=== PATIENT | male | born 1950 | race Caucasian/White ===

== ENCOUNTER → 2016-12-17 | Outpatient (CLI) | payer OTHER ==
--- NOTE | 2016-12-18 14:43 | PE ---
Nuclear medicine PET/CT HISTORY: Pulmonary nodule, R 91.8 Patient received 8.3 mCi F-18 FDG intravenously. Delayed scanning performed from the skull base to th e mid thighs. Localization and attenuation correction CT scan was performed No comparisons Findings: Neck and chest: The nodule within the lingula measures approximately 3.6 cm and is cavitary, there is associated hypermetabolic uptake SUV 7.3. Right upper lobe nodule measures approximately 2.2 cm and shows SUV 10.4 and is partially cavitary. Left upper lobe nodule shows SUV 3.7 and measures approxima tely 9 mm, additional nodule in the subpleural location in the left upper lobe is measuring only 4 mm and shows no definite corresponding hypermetabolic uptake. Small nodes are present within the medias tinum, hypermetabolic uptake in the retrocaval pretracheal node shows SUV 2.8, right hilar node SUV 3 , left hilar nodes SUV 3.2, additional right hilar nodes SUV 3. Abdomen pelvis: Unremarkable. No hypermetabolic uptake. IMPRESSION: Bilateral lung nodules show hypermetabolic uptake. Mediastinal nodes do not appear enlarg ed which show some corresponding hypermetabolic uptake as described.
== END | disposition home or self-care (01) ==
LOC: RADPETMAIN 13:23
PROVIDERS: ATTEND Internal Medicine Critical Care Medicine
DX: R91.8 Other nonspecific abnormal finding of lung field (principal)
CPT/HCPCS: 78815; A9552

== ENCOUNTER 2016-12-29 09:06 | Day surgery (SDC) | payer OTHER ==
[2016-12-26 14:28] VITALS: BMI 25.4
[~2016-12-29 09:06] MED LIST: ALBUTEROL NEB (CONC) 2.5 MG/0.5 ML INHALATION ONE; ATROPINE SULFATE 0.4 MG/ML 1 ML VIAL IM ONE; IV FLUID CONTINUATION 1,000 ML IV ONE; LACTATED RINGERS 1,000 ML IV ONE; LACTATED RINGERS 1,000 ML IV SCH; LIDOCAINE 2% (PF) 20 MG/ML 10ML INHALATION ONE
[2016-12-29] MEDS ORDERED: LIDOCAINE 1% 20 ML VIAL (10MG/ML) FOR IV START INTRADERMA ONE (09:51)
[2016-12-29] MEDS ORDERED: LIDOCAINE 1% INJ 10MG/ML (20 ML MDV) ONE (11:32)
[2016-12-29] MEDS ORDERED: SUCCINYLCHOLINE CHLORIDE 100 MG/5 ML SYR IV ONE (11:32)
[2016-12-29] MEDS ORDERED: NEOSTIGMINE 1 MG/ML 10 ML VIAL ONE (11:32)
[2016-12-29] MEDS ORDERED: MIDAZOLAM 2 MG/2 ML VIAL ONE (11:32)
[2016-12-29] MEDS ORDERED: fentaNYL (PF) 50 MCG/ML 2 ML AMP ONE (11:32)
[2016-12-29] MEDS ORDERED: GLYCOPYRROLATE 0.2 MG/ML 2 ML VIAL ONE (11:32)
[2016-12-29] MEDS ORDERED: ROCURONIUM BROMIDE 10 MG/ML 10 ML VIAL IV ONE (11:32)
[2016-12-29] MEDS ORDERED: PROPOFOL 10 MG/ML 20 ML VIAL IV ONE (11:32)
--- NOTE | 2016-12-29 11:36 | CT ---
EXAMINATION TYPE: CT Chest felton Olivares Protocol DATE OF EXAM: 12/29/2016 10:37 AM COMPARISON: PET CT fusion through 1816 HISTORY: Bronchial navigation CT DLP: [address] of the chest was performed with lung and mediastinal window settings submitted for [facility] navigation protocol.. The lack of contrast limits evaluation of the vascular, mediastinal and parenchymal structures including the upper abdomen. LUNGS: Spiculated mass right upper lobe measures 2 cm with internal mild cavitation. Small nodule rig ht lower lobe measures 6 mm. Within the left lung there is a dominant cavitary mass within the lingul a which measures 3.2 x 3.1 cm. 2 adjacent nodules are seen within the left upper lobe measuring 5 and 7 mm respectively. Additional 5 mm lingular nodule. Additional left lower lobe nodule medially measu res 3 mm. MEDIASTINUM/SABRINA: Thoracic aorta is of normal caliber with limited evaluation given lack of contrast . The heart is not enlarged. No evidence for mediastinal mass. Several subcentimeter mediastinal ly mph nodes appreciated. UPPER ABDOMEN: No significant abnormality is seen. OTHER: Upper back sebaceous cyst. IMPRESSION: 1. Pulmonary masses and nodules as discussed.
[2016-12-29] MEDS ORDERED: LACTATED RINGERS 1,000 ML IV ONE (12:20)
[2016-12-29 12:34] VITALS: TEMP 97.4
[2016-12-29 12:46] VITALS: RESP 16
--- NOTE | 2016-12-29 13:37 | XR ---
EXAMINATION TYPE: XR chest 1V portable DATE OF EXAM: 12/29/2016 1:32 PM COMPARISON: 03/26/2016 HISTORY: Post biopsy TECHNIQUE: Single frontal view of the chest is obtained. FINDINGS: Area of consolidation in the lingular segment left upper lobe is noted. No pneumothorax id entified. No pleural effusion. Diffuse osteopenia noted. Postsurgical change involving the mediastinu m. Correlate for underlying COPD. IMPRESSION: 1. No pneumothorax post procedure. Pulmonary mass again noted.
[2016-12-29 13:57] VITALS: BP 150/69; PULSE 72
[2016-12-29 16:54] LABS: RBC, Body Fluid 13600 /uL
--- NOTE | 2016-12-30 06:18 | PCN ---
DATE OF PROCEDURE: PROCEDURE PERFORMED: Electromagnetic navigational bronchoscopy. The procedure was done by Dr. Arango and Dr. Willis doing the procedure together. PREOPERATIVE DIAGNOSIS: Lingular mass POSTOPERATIVE DIAGNOSIS: Lingular mass Procedure was done in the operating section of [facility]. There was informed consent. There was universal timeout. The procedure was done with general anesthesia. After the patient was adequately sedated and intubated by anesthesia, stable on the ventilator, the bronchoscope was inserted through the bronchoscope adapter of the endotracheal tube. We localized the lesion in the lingula. We used the electromagnetic navigational bronchoscopy to localize the lesion precisely. We did transbronchial biopsies, needle biopsies, brushes and washes of the lesion. The patient tolerated the procedure well. There was minimal bleeding. The patient was stable throughout the entire procedure. The biopsies will be sent to pathology for review. The patient will be recovered. He will be discharged home eventually. There was no immediate complication. A chest x-ray was done to rule out pneumothorax.
== END 2016-12-29 14:06 | disposition home or self-care (01) ==
LOC: ORWHC2ENDO 09:06
PROVIDERS: ATTEND Internal Medicine Critical Care Medicine
DX: C34.12 Malignant neoplasm of upper lobe, left bronchus or lung (principal); I48.91 Unspecified atrial fibrillation; I10 Essential (primary) hypertension; E78.5 Hyperlipidemia, unspecified; J44.9 Chronic obstructive pulmonary disease, unspecified; J45.909 Unspecified asthma, uncomplicated; I35.0 Nonrheumatic aortic (valve) stenosis; I73.9 Peripheral vascular disease, unspecified; Z87.891 Personal history of nicotine dependence; Z88.2 Allergy status to sulfonamides; Z88.8 Allergy status to other drugs, medicaments and biological substances; Z79.82 Long term (current) use of aspirin; Z79.899 Other long term (current) drug therapy; Z79.891 Long term (current) use of opiate analgesic; Z79.51 Long term (current) use of inhaled steroids
CPT/HCPCS: 87798 ×4; 87496; 87498; 87529 ×2; 88104; 88108; 88305; 88173; 89050; 88342; 87252; 87502 ×2; 88341; 87070; 87205; 87116; 87102; 87206; 71010; 71250; 31628; 31623; 31627; J2250; J0461; J2710; J2001; J3010; J0330; J2704; 31624; 31625; 31629

== ENCOUNTER 2017-03-07 15:34 | Emergency (ER) | payer OTHER ==
[2017-03-07] MEDS ORDERED: SODIUM CHLORIDE 0.9% 1,000 ML IV STA ×2 (16:09)
--- NOTE | 2017-03-07 16:11 | ED ---
General Adult HPI - General Chief complaint: Shortness of Breath Stated complaint: SOB/Sweating/ due to medication Time Seen by Provider: 03/07/17 16:06 Source: patient, RN notes reviewed, old records reviewed Mode of arrival: wheelchair Limitations: no limitations - History of Present Illness Initial comments: This is a 66-year-old male here for evaluation. Patient coming in for evaluation of shortness of breath exertional shortness of breath diaphoresis no specific fever. Patient does have history of recent CVA diagnosis going through chemo. Patient's thinks it is pernicious is reaction to his medication. Patient denies nausea vomiting, no chest pain. No abdominal pain. - Related Data Home Medications Medication Instructions Recorded Confirmed Hydrochlorothiazide [Hydrodiuril] 50 mg PO DAILY 03/26/16 03/07/17 Losartan Potassium [Cozaar] 100 mg PO QAM 03/26/16 03/07/17 Metoprolol Tartrate 25 mg PO BID 03/26/16 03/07/17 Potassium Chloride ER [K-Dur 10] 10 meq PO DAILY 03/26/16 03/07/17 Tiotropium 18 Mcg/Puff [Spiriva] 1 cap INHALATION RT-DAILY PRN 03/26/16 03/07/17 Budesonide/Formoterol Fumarate 2 puff INHALATION RT-BID PRN 07/21/16 03/07/17 [Symbicort 160-4.5 Mcg Inhaler] Morphine Sulfate ER [Ms Contin 30 mg PO Q12HR 03/07/17 03/07/17 30Mg] Morphine Sulfate Ir [Msir] 15 mg PO TID PRN 03/07/17 03/07/17 Pravastatin Sodium [Pravachol] 20 mg PO DAILY 03/07/17 03/07/17 Allergies Allergy/AdvReac Type Severity Reaction Status Date / Time lisinopril Allergy Cough Verified 03/07/17 16:16 sulfamethoxazole Allergy Swelling Verified 03/07/17 16:16 [From Bactrim] terazosin Allergy Unknown Verified 03/07/17 16:16 trimethoprim [From Bactrim] Allergy Swelling Verified 03/07/17 16:16 Review of Systems ROS Statement: Those systems with pertinent positive or pertinent negative responses have been documented in the HPI. ROS Other: All systems not noted in ROS Statement are negative. Past Medical History Past Medical History: Atrial Fibrillation, Cancer, COPD, Hyperlipidemia, Hypertension, Vascular Disorder Additional Past Medical History / Comment(s): "growth in my lung", PVD, Neuropathy, wound lt great toe and left heel-healed, uses w/c,cane walk short distance with cane History of Any Multi-Drug Resistant Organisms: MRSA Date of last positivie culture/infection: 2012 MDRO Source:: rt ankle wound Past Surgical History: Orthopedic Surgery Additional Past Surgical History / Comment(s): aortic valve replacement, rt ankle surgery with screws and pins, cardioversion,eye surgery at age 15, bronchoscopy at [facility] in [place] Past Anesthesia/Blood Transfusion Reactions: No Reported Reaction Additional Past Anesthesia/Blood Transfusion Reaction / Comment(s): pt states "awakened prior to bronchoscopy being withdrawn." Past Psychological History: No Psychological Hx Reported Smoking Status: Former smoker Past Alcohol Use History: None Reported Additional Past Alcohol Use History / Comment(s): smoked 53 years 3-5 ppd quit 01-04-16 Past Drug Use History: None Reported - Past Family History Mother Family Medical History: Cancer Additional Family Medical History / Comment(s): lung cancer Father Family Medical History: No Reported History General Exam Limitations: no limitations General appearance: alert, in no apparent distress, anxious Head exam: Present: atraumatic, normocephalic, normal inspection Eye exam: Present: normal appearance, PERRL, EOMI. Absent: scleral icterus, conjunctival injection, periorbital swelling ENT exam: Present: normal exam, mucous membranes moist Neck exam: Present: normal inspection. Absent: tenderness, meningismus, lymphadenopathy Respiratory exam: Present: normal lung sounds bilaterally. Absent: respiratory distress, wheezes, rales, rhonchi, stridor Cardiovascular Exam: Present: regular rate, normal rhythm, normal heart sounds. Absent: systolic murmur, diastolic murmur, rubs, gallop, clicks GI/Abdominal exam: Present: soft, normal bowel sounds. Absent: distended, tenderness, guarding, rebound, rigid Extremities exam: Present: normal inspection, full ROM, normal capillary refill. Absent: tenderness, pedal edema, joint swelling, calf tenderness Back exam: Present: normal inspection Neurological exam: Present: alert, oriented X3, CN II-XII intact Psychiatric exam: Present: normal affect, normal mood Skin exam: Present: warm, dry, intact, normal color. Absent: rash Course Vital Signs 03/07/17 03/07/17 03/07/17 15:51 17:00 17:57 Temperature 99.0 F 97.6 F Pulse Rate 91 74 77 Respiratory 20 18 18 Rate Blood Pressure 125/63 136/74 150/70 O2 Sat by Pulse 99 97 98 Oximetry 03/07/17 03/07/17 03/07/17 19:00 20:05 20:31 Temperature Pulse Rate 78 77 Respiratory 16 18 22 Rate Blood Pressure 142/63 180/77 O2 Sat by Pulse 97 99 Oximetry EKG Findings - EKG Comments: EKG Findings:: EKG shows normal sinus rhythm rate of 81, CT 166, QRS 110, QTc 466 Medical Decision Making - Medical Decision Making 66 female to the ER for evaluation of shortness of breath, positive exertional dyspnea. At this point patient's symptoms appear to be improving, patient feels better as far as breathing issues. Patient denies complaints over discharged home - Lab Data Result diagrams: 03/07/17 16:10 03/07/17 16:10 Lab Results 03/07/17 03/07/17 03/07/17 Range/Units 16:10 16:10 16:10 WBC 10.2 (3.8-10.6) k/uL RBC 4.13 L (4.30-5.90) m/uL Hgb 11.9 L (13.0-17.5) gm/dL Hct 34.7 L (39.0-53.0) % MCV 84.1 (80.0-100.0) fL MCH 28.9 (25.0-35.0) pg MCHC 34.3 (31.0-37.0) g/dL RDW 13.6 (11.5-15.5) % Plt Count 362 (150-450) k/uL Neutrophils % 63 % Lymphocytes % 25 % Monocytes % 5 % Eosinophils % 3 % Basophils % 1 % Neutrophils # 6.5 (1.3-7.7) k/uL Lymphocytes # 2.5 (1.0-4.8) k/uL Monocytes # 0.5 (0-1.0) k/uL Eosinophils # 0.3 (0-0.7) k/uL Basophils # 0.1 (0-0.2) k/uL PT (9.0-12.0) sec INR (<1.1) APTT (22.0-30.0) sec Sodium 138 (137-145) mmol/L Potassium 3.9 (3.5-5.1) mmol/L Chloride 100 (98-107) mmol/L Carbon Dioxide 24 (22-30) mmol/L Anion Gap 14 mmol/L BUN 15 (9-20) mg/dL Creatinine 0.70 (0.66-1.25) mg/dL Est GFR (MDRD) Af Amer >60 (>60 ml/min/1.73 sqM) Est GFR (MDRD) Non-Af >60 (>60 ml/min/1.73 sqM) Glucose 139 H (74-99) mg/dL Calcium 10.2 (8.4-10.2) mg/dL Magnesium 1.7 (1.6-2.3) mg/dL Total Bilirubin 0.3 (0.2-1.3) mg/dL AST 20 (17-59) U/L ALT 24 (21-72) U/L Alkaline Phosphatase 70 (38-126) U/L Total Creatine Kinase 58 (55-170) U/L CK-MB (CK-2) 1.6 (0.0-2.4) ng/mL CK-MB (CK-2) Rel Index 2.8 Troponin I <0.012 (0.000-0.034) ng/mL NT-Pro-B Natriuret Pep pg/mL Total Protein 7.9 (6.3-8.2) g/dL Albumin 4.0 (3.5-5.0) g/dL 03/07/17 03/07/17 Range/Units 16:10 16:10 WBC (3.8-10.6) k/uL RBC (4.30-5.90) m/uL Hgb (13.0-17.5) gm/dL Hct (39.0-53.0) % MCV (80.0-100.0) fL MCH (25.0-35.0) pg MCHC (31.0-37.0) g/dL RDW (11.5-15.5) % Plt Count (150-450) k/uL Neutrophils % % Lymphocytes % % Monocytes % % Eosinophils % % Basophils % % Neutrophils # (1.3-7.7) k/uL Lymphocytes # (1.0-4.8) k/uL Monocytes # (0-1.0) k/uL Eosinophils # (0-0.7) k/uL Basophils # (0-0.2) k/uL PT 10.4 (9.0-12.0) sec INR 1.0 (<1.1) APTT 23.5 (22.0-30.0) sec Sodium (137-145) mmol/L Potassium (3.5-5.1) mmol/L Chloride (98-107) mmol/L Carbon Dioxide (22-30) mmol/L Anion Gap mmol/L BUN (9-20) mg/dL Creatinine (0.66-1.25) mg/dL Est GFR (MDRD) Af Amer (>60 ml/min/1.73 sqM) Est GFR (MDRD) Non-Af (>60 ml/min/1.73 sqM) Glucose (74-99) mg/dL Calcium (8.4-10.2) mg/dL Magnesium (1.6-2.3) mg/dL Total Bilirubin (0.2-1.3) mg/dL AST (17-59) U/L ALT (21-72) U/L Alkaline Phosphatase (38-126) U/L Total Creatine Kinase (55-170) U/L CK-MB (CK-2) (0.0-2.4) ng/mL CK-MB (CK-2) Rel Index Troponin I (0.000-0.034) ng/mL NT-Pro-B Natriuret Pep 250 pg/mL Total Protein (6.3-8.2) g/dL Albumin (3.5-5.0) g/dL - Radiology Data Radiology results: report reviewed (CTA chest and x-ray are negative for acute disease, no PE), image reviewed Disposition Clinical Impression: Exertional dyspnea Disposition: HOME SELF-CARE Condition: Good Instructions: Bronchospasm (ED) Referrals: Marcus Gottlieb DO [Primary Care Provider] - 1-2 days
[2017-03-07 16:26] LABS: Basophils # (A) 0.1 k/uL (0-0.2); Basophils % (A) 1 %; CH 29.6; CHCM 35.3; Eosinophils # (A) 0.3 k/uL (0-0.7); Eosinophils % (A) 3 %; HCT 34.7 % (39.0-53.0); HDW 3.05; HGB 11.9 gm/dL (13.0-17.5); Luc # (Auto) 0.31; Luc % (Auto) 3; Lymphocytes # (A) 2.5 k/uL (1.0-4.8); Lymphocytes % (A) 25 %; MCH 28.9 pg (25.0-35.0); MCHC 34.3 g/dL (31.0-37.0); MCV 84.1 fL (80.0-100.0); Mean Platelet Volume 7.1; Monocytes # (A) 0.5 k/uL (0-1.0); Monocytes % (A) 5 %; Neutrophils # (A) 6.5 k/uL (1.3-7.7); Neutrophils % (A) 63 %; RBC 4.13 m/uL (4.30-5.90); RDW 13.6 % (11.5-15.5); WBC 10.2 k/uL (3.8-10.6); WBC (Perox) 10.77
--- NOTE | 2017-03-07 16:33 | XR ---
EXAMINATION TYPE: XR chest 2V DATE OF EXAM: 03/07/2017 COMPARISON: Chest x-ray and CT chest December 29, 2016. HISTORY: Difficulty in breathing. Currently being treated for lung cancer. TECHNIQUE: Frontal and lateral views of the chest are obtained. FINDINGS: Underlying emphysematous change is present. Opacity right upper lung corresponds to cavitar y lesion. There is patchy left basilar scarring and/or atelectasis. Nodularity left lower lobe is les s well-seen on x-ray versus CT. No new suspicious focal airspace opacity, pleural effusion, or pneumo thorax is present. There is persistent mild cardiomegaly with atherosclerotic thoracic aorta. Sternal wires are redemonstrated. Stent graft at aortic root is again seen. Osseous structures are intact. IMPRESSION: Cardiomegaly and chronic emphysematous change without new acute pulmonary process.
[2017-03-07 16:38] LABS: Partial Thromboplastin Time 23.5 sec (22.0-30.0); Prothrombin Time 10.4 sec (9.0-12.0)
[2017-03-07 16:40] LABS: ALT 24 U/L (21-72); AST 20 U/L (17-59); Alkaline Phosphatase 70 U/L (38-126); Anion Gap 14 mmol/L; Blood Urea Nitrogen 15 mg/dL (9-20); Calcium 10.2 mg/dL (8.4-10.2); Carbon Dioxide 24 mmol/L (22-30); Chloride 100 mmol/L (98-107); Glucose 139 mg/dL (74-99); Magnesium 1.7 mg/dL (1.6-2.3); Non-African American GFR(MDRD) >60 (>60 ml/min/1.73 sqM); Potassium 3.9 mmol/L (3.5-5.1); Sodium 138 mmol/L (137-145); Total Bilirubin 0.3 mg/dL (0.2-1.3); Total Protein 7.9 g/dL (6.3-8.2)
[2017-03-07] MEDS ORDERED: MORPHINE SULFATE 4 MG/ML SYRINGE IVP STA (16:42)
[2017-03-07 16:50] LABS: Creatine Kinase 58 U/L (55-170)
[2017-03-07 17:01] LABS: Creatine Kinase MB 1.6 ng/mL (0.0-2.4); Troponin I <0.012 ng/mL (0.000-0.034)
--- NOTE | 2017-03-07 17:19 | CT ---
EXAMINATION TYPE: CT brain wo con DATE OF EXAM: 03/07/2017 COMPARISON: NONE HISTORY: Dizziness. Hx of lung CA. CT DLP: 1126 mGycm Automated exposure control for dose reduction was used. FINDINGS: There is cerebral mild cortical atrophy. There is no mass effect nor midline shift. There is no sign of intracranial hemorrhage. The calvarium is intact. IMPRESSION: Cerebral atrophy. No acute intracranial abnormality. Mild chronic small vessel ischemia.
[2017-03-07 17:58] VITALS: TEMP 97.6
[2017-03-07] MEDS ORDERED: methylPREDNISolone SOD SUCCI 125 MG/2 ML VIAL IV STA (19:24)
[2017-03-07] MEDS ORDERED: RX INFO: IV CONTRAST WAS GIVEN 1 EACH MISC MISCELLANE PRN (19:24)
--- NOTE | 2017-03-07 20:07 | CT ---
EXAMINATION TYPE: CT angio chest DATE OF EXAM: 03/07/2017 7:49 PM COMPARISON: NONE HISTORY: History of lung cancer. Shortness of breath. CT DLP: 375.10 mGycm Automated exposure control for dose reduction was used. CONTRAST: CTA scan of the thorax is performed with IV Contrast, patient injected with 71 mL of Omnipaque 350, p ulmonary embolism protocol. There are 3-D post processed images.. FINDINGS: There is a 3 cm irregular infiltrate with some central cavitation in the right upper lobe. There is a 2 cm irregular nodular density in the lateral left upper lobe. There is a 3.5 cm irregular infiltrat e with some cavitation in the lingula left upper lobe. There is a 1 cm nodular infiltrate in the supe rior segment left lower lobe. There is a 1 cm nodular subpleural infiltrate in the lateral left lower lobe. There is a 1 cm irregular nodule in the subpleural lateral right lower lobe. There is no pleur al effusion. I see no filling defects in the pulmonary arteries. There are bilateral bronchial lymph nodes that measure up to 1 cm. Heart is enlarged. There is surgery noted at the aortic valve. There a re a few mediastinal lymph nodes that measure up to 1.6 cm. There is no obvious sign of aortic dissec tion. I see no bony destructive process. There is spurring in the thoracic spine. IMPRESSION: NO EVIDENCE OF PULMONARY EMBOLISM. AORTIC STENT NOTED. ATHEROSCLEROTIC VASCULAR DISEASE. MULTIPLE VARIABLE SIZED PULMONARY NODULAR INFILTRATES WITH SOME MEDIASTINAL AND BRONCHIAL ADENOPATHY. THIS IS CONSISTENT WITH PRIMARY OR SECONDARY MALIGNANCY.
[2017-03-07 20:32] VITALS: BP 180/77; PULSE 77; RESP 22
== END 2017-03-07 20:33 | disposition home or self-care (01) ==
LOC: EC 15:34
DX: R06.09 Other forms of dyspnea (principal); I10 Essential (primary) hypertension; E78.5 Hyperlipidemia, unspecified; Z87.891 Personal history of nicotine dependence; Z88.2 Allergy status to sulfonamides; Z88.8 Allergy status to other drugs, medicaments and biological substances; Z79.899 Other long term (current) drug therapy
CPT/HCPCS: 99285; 96374; 96375; 96361 ×4; 36415; 93005; 83880; 80053; 82550; 82553; 83735; 84484; 85025; 85610; 85730; 71020; 70450; 71275; J2270; J2930; Q9967

== ENCOUNTER → 2017-05-11 | Outpatient (CLI) | payer OTHER ==
[2017-05-11 08:55] LABS: Blood Urea Nitrogen 13 mg/dL (9-20); Non-African American GFR(MDRD) >60 (>60 ml/min/1.73 sqM)
--- NOTE | 2017-05-11 10:23 | CT ---
EXAMINATION TYPE: CT chest w con DATE OF EXAM: 05/11/2017 COMPARISON: CTA chest March 07, 2017. PET CT December 17, 2016. HISTORY: Patient has no complaints at time of service. Follow up study for known lung CA. CT DLP: 433.8 mGycm. Automated Exposure Control for Dose Reduction was Utilized. TECHNIQUE: CT scan of the thorax is performed following with IV Contrast, patient injected with 100 mL of Omnipaque 300. FINDINGS: LUNGS: There is persistent spiculated cavitary lesion right upper lobe measuring 1.6 x 1.4 cm on curr ent study image 12 felt slightly smaller in size versus prior exam. There is marked improvement in le ft upper lobe nodule with tiny residual nodular opacity remaining present on axial image 18 measuring 4 x 4 mm . There is persistent lesion in the left midlung anteriorly as well as lucent component inf eriorly, solid component superiorly measures 1.7 x 1.6 cm on current study image 31 and is less promi nent versus recent chest CT. A 5 mm scarlike opacity laterally right lower lobe on axial image 38 is not significantly changed and nonspecific. An ill-defined 4 mm spiculated groundglass opacity in the right upper lobe on axial image 18 is nonspecific not as well seen on prior and can be followed. MEDIASTINUM: There are no greater than 1 cm hilar or mediastinal lymph nodes. There are stable promin ent but subcentimeter thoracic lymph nodes redemonstrated. No cardiomegaly or pericardial effusion is seen. There is redemonstration of patent metallic stent graft in the ascending aorta. Coronary ar robson calcification is seen which is noted marker for coronary artery disease. There is moderate plaqu e throughout the aorta extending into branch vessels. Sternotomy wires are seen. OTHER: Moderate to severe multilevel spurring in the mid to lower thoracic spine is redemonstrated. IMPRESSION: Scattered hypermetabolic bilateral pulmonary nodules are improved. No new obvious mass or adenopathy is present.
== END | disposition home or self-care (01) ==
LOC: RADCTMAIN 08:24
PROVIDERS: ATTEND Internal Medicine Hematology & Oncology
DX: Z03.89 Encounter for observation for other suspected diseases and conditions ruled out (principal); C34.80 Malignant neoplasm of overlapping sites of unspecified bronchus and lung; R91.8 Other nonspecific abnormal finding of lung field
CPT/HCPCS: 82565; 84520; 71260; 36415; Q9967

== ENCOUNTER → 2017-05-15 | Outpatient (CLI) | payer OTHER ==
--- NOTE | 2017-05-15 17:09 | MR ---
EXAMINATION TYPE: MR brain wo/w con DATE OF EXAM: 05/15/2017 COMPARISON: CT brain 03/07/2017 HISTORY: Blurred/Double vision, stage 4 lung ca TECHNIQUE: Multiplanar, multisequence images of the brain and brainstem is performed without and with IV contras t, utilizing 18 mL intravenous MultiHance . FINDINGS: There is mild cerebral cortical atrophy. There is no mass effect nor midline shift. There i s no sign of intracranial hemorrhage. Sella turcica appears normal. Brainstem is intact. On the FLAIR images there is patchy abnormal increased signal at the davis-white matter junction of both cerebral hemispheres. The total number of foci is more than 20. These measure up to 1 cm. The contrast images show no pathologic enhancement. There is no evidence of an orbital mass. Pituitary stalk is in the mi dline. Optic chiasm appears normal. IMPRESSION: Cerebral atrophy. Numerous white matter foci probably related to chronic small vessel isc hemia or demyelinating disease. This is similar to the CT scan of 03/07/2017. I see no pathologic enhan cement to suggest metastatic disease.
== END | disposition home or self-care (01) ==
LOC: RADMRIMAIN 16:10
PROVIDERS: ATTEND Internal Medicine Hematology & Oncology
DX: G31.89 Other specified degenerative diseases of nervous system (principal); C34.80 Malignant neoplasm of overlapping sites of unspecified bronchus and lung; H53.10 Unspecified subjective visual disturbances; R90.82 White matter disease, unspecified
CPT/HCPCS: 70553; A9577; 80053

== ENCOUNTER 2017-06-17 07:19 | Inpatient (IN) | payer OTHER ==
[2017-06-17] MEDS ORDERED: IPRATROPIUM-ALBUTEROL 3 ML NEB INHALATION STA ×2 (07:31→09:41)
[2017-06-17] MEDS ORDERED: methylPREDNISolone SOD SUCCI 125 MG/2 ML VIAL IV STA (07:31)
[2017-06-17] MEDS ORDERED: SODIUM CHLORIDE 0.9% 500 ML IV STA (07:31)
[2017-06-17] MEDS ORDERED: SODIUM CHLORIDE 0.9% 1,000 ML IV STA (07:31)
--- NOTE | 2017-06-17 07:41 | ED ---
SOB HPI - General Chief Complaint: Shortness of Breath Stated Complaint: slava stage 4 lung Ca Time Seen by Provider: 06/17/17 07:20 Source: patient, family, RN notes reviewed Mode of arrival: EMS Limitations: no limitations - History of Present Illness Initial Comments: This is a 66-year-old male with a history of stage IV lung cancer and a history of smoking in the past who states he's had shortness of breath for about the past 2 days. He's had slight cough he denies any fevers or chills he has had sweats. He has exertional dyspnea. No overt chest pain but also he has chronic leg pain which is worse today. He states he was on a steroid and ran out and was placed on a different medication but it has not helped. He has a palpitations phlegm production he does have a slight cough. No peripheral edema. He does state he has a pin sticking out of his right ankle which is to be removed at some point. MD Complaint: shortness of breath - Related Data Home Medications Medication Instructions Recorded Confirmed Hydrochlorothiazide [Hydrodiuril] 50 mg PO DAILY 03/26/16 03/07/17 Losartan Potassium [Cozaar] 100 mg PO QAM 03/26/16 03/07/17 Metoprolol Tartrate 25 mg PO BID 03/26/16 03/07/17 Potassium Chloride ER [K-Dur 10] 10 meq PO DAILY 03/26/16 03/07/17 Tiotropium 18 Mcg/Puff [Spiriva] 1 cap INHALATION RT-DAILY PRN 03/26/16 03/07/17 Budesonide/Formoterol Fumarate 2 puff INHALATION RT-BID PRN 07/21/16 03/07/17 [Symbicort 160-4.5 Mcg Inhaler] Morphine Sulfate ER [Ms Contin 30 mg PO Q12HR 03/07/17 03/07/17 30Mg] Morphine Sulfate Ir [Msir] 15 mg PO TID PRN 03/07/17 03/07/17 Pravastatin Sodium [Pravachol] 20 mg PO DAILY 03/07/17 03/07/17 Allergies Allergy/AdvReac Type Severity Reaction Status Date / Time lisinopril Allergy Cough Verified 06/17/17 07:29 sulfamethoxazole Allergy Swelling Verified 06/17/17 07:29 [From Bactrim] terazosin Allergy Unknown Verified 06/17/17 07:29 trimethoprim [From Bactrim] Allergy Swelling Verified 06/17/17 07:29 Review of Systems ROS Statement: Those systems with pertinent positive or pertinent negative responses have been documented in the HPI. ROS Other: All systems not noted in ROS Statement are negative. Past Medical History Past Medical History: Atrial Fibrillation, Cancer, COPD, Hyperlipidemia, Hypertension, Vascular Disorder Additional Past Medical History / Comment(s): "growth in my lung", PVD, Neuropathy, wound lt great toe and left heel-healed, uses w/c,cane walk short distance with cane History of Any Multi-Drug Resistant Organisms: MRSA Date of last positivie culture/infection: 2012 MDRO Source:: rt ankle wound Past Surgical History: Orthopedic Surgery Additional Past Surgical History / Comment(s): aortic valve replacement, rt ankle surgery with screws and pins, cardioversion,eye surgery at age 15, bronchoscopy at [facility] in [place] Past Anesthesia/Blood Transfusion Reactions: No Reported Reaction Additional Past Anesthesia/Blood Transfusion Reaction / Comment(s): pt states "awakened prior to bronchoscopy being withdrawn." Past Psychological History: No Psychological Hx Reported Smoking Status: Former smoker Past Alcohol Use History: None Reported Past Drug Use History: None Reported - Past Family History Mother Family Medical History: Cancer Additional Family Medical History / Comment(s): lung cancer Father Family Medical History: No Reported History General Exam - General Exam Comments Initial Comments: This is a well-developed well-nourished awake alert oriented times female Limitations: no limitations General appearance: alert, anxious, in distress Head exam: Present: atraumatic, normocephalic, normal inspection Eye exam: Present: normal appearance, PERRL, EOMI. Absent: scleral icterus, conjunctival injection, periorbital swelling ENT exam: Present: mucous membranes dry Neck exam: Present: normal inspection. Absent: tenderness, meningismus, lymphadenopathy Respiratory exam: Present: accessory muscle use, decreased breath sounds. Absent: respiratory distress, wheezes, rales, rhonchi, stridor Cardiovascular Exam: Present: tachycardia, irregular rhythm, normal heart sounds. Absent: systolic murmur, diastolic murmur, rubs, gallop, clicks GI/Abdominal exam: Present: soft, normal bowel sounds. Absent: distended, tenderness, guarding, rebound, rigid Extremities exam: Present: full ROM, normal capillary refill, other (There is erosion area over the medial anterior proximal right malleolus with a tendinitis exposers no localized drainage or erythema seen at this time.). Absent: tenderness, pedal edema, joint swelling, calf tenderness Back exam: Present: normal inspection Neurological exam: Present: alert, oriented X3, CN II-XII intact Psychiatric exam: Present: normal affect, normal mood Skin exam: Present: warm, dry, intact, normal color. Absent: rash Course Vital Signs 06/17/17 06/17/17 06/17/17 07:27 07:50 08:13 Temperature 98.9 F Pulse Rate 145 H 136 H Respiratory 27 H Rate Blood Pressure 129/61 O2 Sat by Pulse 98 Oximetry 06/17/17 06/17/17 08:20 08:37 Temperature 97.5 F L Pulse Rate 122 H 144 H Respiratory 24 Rate Blood Pressure 142/77 O2 Sat by Pulse 98 Oximetry - Reevaluation(s) Reevaluation #1: 06/17/17 08:30 Patient states his breathing is slightly better however he has increased leg pain 7/10 in severity this may be an basis of hyperventilation from the dyspnea. He'll get a 0.5 mg dose of Dilaudid. Medical Decision Making - Medical Decision Making Reevaluation patient reveals that he has some improvement he still has A. fib RVR no chest pain reported. I did discuss findings the patient has as well as with Dr. Pierce and with Dr. Lambert from cardiology. The patient will be admitted with both cardiology and pulmonary consultation. - Lab Data Result diagrams: 06/17/17 07:35 06/17/17 07:35 Lab Results 06/17/17 06/17/17 06/17/17 Range/Units 07:35 07:35 07:35 WBC 18.8 H (3.8-10.6) k/uL RBC 4.42 (4.30-5.90) m/uL Hgb 13.2 (13.0-17.5) gm/dL Hct 39.8 (39.0-53.0) % MCV 90.1 (80.0-100.0) fL MCH 29.9 (25.0-35.0) pg MCHC 33.1 (31.0-37.0) g/dL RDW 18.0 H (11.5-15.5) % Plt Count 263 (150-450) k/uL Neutrophils % 83 % Lymphocytes % 9 % Monocytes % 5 % Eosinophils % 1 % Basophils % 1 % Neutrophils # 15.6 H (1.3-7.7) k/uL Lymphocytes # 1.7 (1.0-4.8) k/uL Monocytes # 1.0 (0-1.0) k/uL Eosinophils # 0.1 (0-0.7) k/uL Basophils # 0.1 (0-0.2) k/uL Anisocytosis Slight PT (9.0-12.0) sec INR (<1.2) APTT (22.0-30.0) sec Sodium 137 (137-145) mmol/L Potassium 3.7 (3.5-5.1) mmol/L Chloride 102 (98-107) mmol/L Carbon Dioxide 22 (22-30) mmol/L Anion Gap 13 mmol/L BUN 22 H (9-20) mg/dL Creatinine 0.81 (0.66-1.25) mg/dL Est GFR (MDRD) Af Amer >60 (>60 ml/min/1.73 sqM) Est GFR (MDRD) Non-Af >60 (>60 ml/min/1.73 sqM) Glucose 192 H (74-99) mg/dL Calcium 8.9 (8.4-10.2) mg/dL Magnesium 1.8 (1.6-2.3) mg/dL Total Bilirubin 0.4 (0.2-1.3) mg/dL AST 25 (17-59) U/L ALT 48 (21-72) U/L Alkaline Phosphatase 64 (38-126) U/L Total Creatine Kinase 51 L (55-170) U/L CK-MB (CK-2) 4.9 H* (0.0-2.4) ng/mL CK-MB (CK-2) Rel Index 9.6 Troponin I 0.276 H* (0.000-0.034) ng/mL NT-Pro-B Natriuret Pep pg/mL Total Protein 6.0 L (6.3-8.2) g/dL Albumin 3.5 (3.5-5.0) g/dL 06/17/17 06/17/17 Range/Units 07:35 07:35 WBC (3.8-10.6) k/uL RBC (4.30-5.90) m/uL Hgb (13.0-17.5) gm/dL Hct (39.0-53.0) % MCV (80.0-100.0) fL MCH (25.0-35.0) pg MCHC (31.0-37.0) g/dL RDW (11.5-15.5) % Plt Count (150-450) k/uL Neutrophils % % Lymphocytes % % Monocytes % % Eosinophils % % Basophils % % Neutrophils # (1.3-7.7) k/uL Lymphocytes # (1.0-4.8) k/uL Monocytes # (0-1.0) k/uL Eosinophils # (0-0.7) k/uL Basophils # (0-0.2) k/uL Anisocytosis PT 9.4 (9.0-12.0) sec INR 0.9 (<1.2) APTT 20.2 L (22.0-30.0) sec Sodium (137-145) mmol/L Potassium (3.5-5.1) mmol/L Chloride (98-107) mmol/L Carbon Dioxide (22-30) mmol/L Anion Gap mmol/L BUN (9-20) mg/dL Creatinine (0.66-1.25) mg/dL Est GFR (MDRD) Af Amer (>60 ml/min/1.73 sqM) Est GFR (MDRD) Non-Af (>60 ml/min/1.73 sqM) Glucose (74-99) mg/dL Calcium (8.4-10.2) mg/dL Magnesium (1.6-2.3) mg/dL Total Bilirubin (0.2-1.3) mg/dL AST (17-59) U/L ALT (21-72) U/L Alkaline Phosphatase (38-126) U/L Total Creatine Kinase (55-170) U/L CK-MB (CK-2) (0.0-2.4) ng/mL CK-MB (CK-2) Rel Index Troponin I (0.000-0.034) ng/mL NT-Pro-B Natriuret Pep 2020 pg/mL Total Protein (6.3-8.2) g/dL Albumin (3.5-5.0) g/dL - EKG Data -: EKG Interpreted by Me (Interpretation with a rate of 138 QRS 82 daily since QTC at 288/436) - Radiology Data Radiology results: report reviewed, image reviewed (I did review the imaging and reports no acute findings.) Critical Care Time Critical Care Time: Yes Critical Care Time: 37 minutes of critical care time which includes initial monitoring with history physical labs x-rays reevaluation patient several occasions for responsive therapy. Discussion with the admitting service as well as cardiology. Documentation the above admitting orders. Disposition Clinical Impression: Rapid atrial fibrillation, Non-ST elevation myocardial infarction (NSTEMI), Acute exacerbation of chronic obstructive airways disease, Adult respiratory distress syndrome Disposition: ADMITTED IP TO THIS HOSP Condition: Serious Referrals: Marcus Gottlieb DO [Primary Care Provider] - 1-2 days Decision Time: 09:00
[2017-06-17] MEDS ORDERED: DILTIAZEM 125 MG in SODIUM CHLORIDE 0.9% 100 ML IV ONE (07:42)
[2017-06-17 07:53] LABS: Anisocytosis Slight; Basophils # (A) 0.1 k/uL (0-0.2); Basophils % (A) 1 %; CH 30.8; CHCM 34.3; Eosinophils # (A) 0.1 k/uL (0-0.7); Eosinophils % (A) 1 %; HCT 39.8 % (39.0-53.0); HDW 2.76; HGB 13.2 gm/dL (13.0-17.5); Luc # (Auto) 0.36; Luc % (Auto) 2; Lymphocytes # (A) 1.7 k/uL (1.0-4.8); Lymphocytes % (A) 9 %; MCH 29.9 pg (25.0-35.0); MCHC 33.1 g/dL (31.0-37.0); MCV 90.1 fL (80.0-100.0); Mean Platelet Volume 7.6; Monocytes % (A) 5 %; Neutrophils # (A) 15.6 k/uL (1.3-7.7); Neutrophils % (A) 83 %; RBC 4.42 m/uL (4.30-5.90); WBC 18.8 k/uL (3.8-10.6); WBC (Perox) 17.84
--- NOTE | 2017-06-17 07:59 | XR ---
EXAMINATION TYPE: XR chest 2V DATE OF EXAM: 06/17/2017 HISTORY: difficulty breathing. REFERENCE: Previous study dated 03/07/2017. FINDINGS: There has been a midline sternotomy. There is an aortic stent graft in place. Lungs are overinflated but clear. Pleural spaces are clear. The heart is enlarged. IMPRESSION: 1. COPD. 2. CARDIOMEGALY. 3. POSTSURGICAL CHANGE.
[2017-06-17 08:02] LABS: ALT 48 U/L (21-72); AST 25 U/L (17-59); Alkaline Phosphatase 64 U/L (38-126); Anion Gap 13 mmol/L; Blood Urea Nitrogen 22 mg/dL (9-20); Calcium 8.9 mg/dL (8.4-10.2); Carbon Dioxide 22 mmol/L (22-30); Chloride 102 mmol/L (98-107); Glucose 192 mg/dL (74-99); Magnesium 1.8 mg/dL (1.6-2.3); Non-African American GFR(MDRD) >60 (>60 ml/min/1.73 sqM); Potassium 3.7 mmol/L (3.5-5.1); Sodium 137 mmol/L (137-145); Total Bilirubin 0.4 mg/dL (0.2-1.3)
[2017-06-17 08:08] LABS: INR 0.9 (<1.2); Prothrombin Time 9.4 sec (9.0-12.0)
[2017-06-17 08:16] LABS: Partial Thromboplastin Time 20.2 sec (22.0-30.0)
[2017-06-17] MEDS ORDERED: HYDROmorphone 1 MG/ML 1 ML SYRINGE IVP STA (08:31)
[2017-06-17 08:32] LABS: Creatine Kinase MB 4.9 ng/mL (0.0-2.4); Troponin I 0.276 ng/mL (0.000-0.034)
[2017-06-17] MEDS ORDERED: HEPARIN SODIUM,PORCINE 5,000 UNIT/ML 1 ML VIAL IV ONE (08:36)
[2017-06-17] MEDS: HEPARIN SODIUM,PORCINE/D5W PMX 25,000 UNIT in DEXTROSE/WATER 1 500ML.BAG IV SCH (08:45)
[2017-06-17] MEDS ORDERED: MAGNESIUM SULFATE-D5W PMX 1 GM in DEXTROSE/WATER 1 100ML.BAG IVPB ONE (09:26)
[2017-06-17] MEDS ORDERED: NITROGLYCERIN SL TABS 0.4 MG TAB SUBLINGUAL PRN (09:36)
[2017-06-17] MEDS ORDERED: SODIUM CHLORIDE 0.9% 1,000 ML IV SCH (09:45)
[2017-06-17] MEDS ORDERED: IPRATROPIUM-ALBUTEROL 3 ML NEB INHALATION SCH (12:00)
[2017-06-17] MEDS: NITROGLYCERIN OINT 1 INCH/GM PACKET TOPICAL SCH ×3 (12:29→23:56)
--- NOTE | 2017-06-17 12:29 | P.CRDCN ---
History of Present Illness Consult date: 06/17/17 Chief complaint: Shortness of breath History of present illness: This is a pleasant 66-year-old male patient with a past medical history significant for aortic valve disease and status post aortic valve replacement with unknown details at this point as well as stage IV lung cancer presented to the hospital complaining of shortness of breath. The patient has been experiencing the shortness of breath over the last few days. He denies having any chest pain or chest discomfort. No orthopnea or PND. He was found to be in A. fib with RVR which seems to be newly diagnosis to him. The patient was started on Cardizem drip as well as on heparin drip. He was on metoprolol at home which was presumed. I will keep the patient on the current medical treatment and try to wean him from the Cardizem drip. I will obtain an echocardiogram was Doppler. Continue following up with him. Past Medical History Past Medical History: Atrial Fibrillation, Cancer, COPD, Hyperlipidemia, Hypertension, Vascular Disorder Additional Past Medical History / Comment(s): "growth in my lung", PVD, Neuropathy, wound lt great toe and left heel-healed, uses w/c,cane walk short distance with cane History of Any Multi-Drug Resistant Organisms: MRSA Date of last positivie culture/infection: 2012 MDRO Source:: rt ankle wound Past Surgical History: Orthopedic Surgery Additional Past Surgical History / Comment(s): aortic valve replacement, rt ankle surgery with screws and pins, cardioversion,eye surgery at age 15, bronchoscopy at [facility] in [place] Past Anesthesia/Blood Transfusion Reactions: No Reported Reaction Additional Past Anesthesia/Blood Transfusion Reaction / Comment(s): pt states "awakened prior to bronchoscopy being withdrawn." Smoking Status: Former smoker - Past Family History Mother Family Medical History: Cancer Additional Family Medical History / Comment(s): lung cancer Father Family Medical History: No Reported History Medications and Allergies Home Medications Medication Instructions Recorded Confirmed Type Hydrochlorothiazide [Hydrodiuril] 50 mg PO DAILY 03/26/16 06/17/17 History Losartan Potassium [Cozaar] 100 mg PO QAM 03/26/16 06/17/17 History Metoprolol Tartrate 25 mg PO BID 03/26/16 06/17/17 History Potassium Chloride ER [K-Dur 10] 10 meq PO DAILY 03/26/16 06/17/17 History Tiotropium 18 Mcg/Puff [Spiriva] 1 cap INHALATION RT-DAILY PRN 03/26/16 History Budesonide/Formoterol Fumarate 2 puff INHALATION RT-BID PRN 07/21/16 06/17/17 History [Symbicort 160-4.5 Mcg Inhaler] Morphine Sulfate ER [Ms Contin 30 mg PO TID 03/07/17 06/17/17 History 30Mg] Morphine Sulfate Ir [Msir] 15 mg PO TID PRN 03/07/17 06/17/17 History Pravastatin Sodium [Pravachol] 20 mg PO DAILY 03/07/17 06/17/17 History Albuterol Sulfate [Proair Hfa] 2 puff INHALATION RT-Q6H PRN 06/17/17 06/17/17 History Gabapentin [Neurontin] 300 mg PO TID 06/17/17 06/17/17 History Magnesium 200 mg PO DAILY 06/17/17 06/17/17 History Multivitamins, Thera [Multivitamin 1 tab PO DAILY 06/17/17 06/17/17 History (formulary)] [place]-3 Fatty Acids/Fish Oil [Fish 1 cap PO DAILY 06/17/17 06/17/17 History Oil 1,000 mg Softgel] Pyridoxine [Vitamin B-6] 50 mg PO DAILY 06/17/17 06/17/17 History Allergies Allergy/AdvReac Type Severity Reaction Status Date / Time lisinopril Allergy Cough Verified 06/17/17 10:38 sulfamethoxazole Allergy Swelling Verified 06/17/17 10:38 [From Bactrim] terazosin Allergy Unknown Verified 06/17/17 10:38 trimethoprim [From Bactrim] Allergy Swelling Verified 06/17/17 10:38 Physical Exam Vitals: Vital Signs Temp Pulse Pulse Resp BP BP Pulse Ox 06/17/17 11:00 97.1 F L 112 H 20 150/63 98 06/17/17 10:23 97.5 F L 118 H 22 169/72 96 06/17/17 08:37 97.5 F L 144 H 24 142/77 98 06/17/17 08:20 122 H 06/17/17 08:13 136 H 06/17/17 07:50 129/61 06/17/17 07:27 98.9 F 145 H 27 H 98 Intake and Output 06/16/17 06/17/17 06/17/17 22:59 06:59 14:59 Intake Total 503.25 Balance 503.25 Intake: Amount of Fluid Infused ( 500 ml) Intake, IV Titration 3.25 Amount Diltiazem 125 mg In 3.25 Sodium Chloride 0.9% 100 ml @ 5 MG/HR 5 mls/hr IV .Q24H ONE Rx#:[id number] Other: Weight 88.451 kg Patient Weight 06/18/17 06:59 Weight 88.451 kg - Constitutional General appearance: no acute distress - Respiratory Respiratory: bilateral: CTA - Cardiovascular Rhythm: irregularly irregular Heart sounds: normal: S1, S2 Results 06/17/17 07:35 06/17/17 07:35 Cardiac Enzymes 06/17/17 06/17/17 Range/Units 07:35 07:35 AST 25 (17-59) U/L CK-MB (CK-2) 4.9 H* (0.0-2.4) ng/mL Troponin I 0.276 H* (0.000-0.034) ng/mL Coagulation 06/17/17 Range/Units 07:35 PT 9.4 (9.0-12.0) sec APTT 20.2 L (22.0-30.0) sec CBC 06/17/17 Range/Units 07:35 WBC 18.8 H (3.8-10.6) k/uL RBC 4.42 (4.30-5.90) m/uL Hgb 13.2 (13.0-17.5) gm/dL Hct 39.8 (39.0-53.0) % Plt Count 263 (150-450) k/uL Comprehensive Metabolic Panel 06/17/17 Range/Units 07:35 Sodium 137 (137-145) mmol/L Potassium 3.7 (3.5-5.1) mmol/L Chloride 102 (98-107) mmol/L Carbon Dioxide 22 (22-30) mmol/L BUN 22 H (9-20) mg/dL Creatinine 0.81 (0.66-1.25) mg/dL Glucose 192 H (74-99) mg/dL Calcium 8.9 (8.4-10.2) mg/dL AST 25 (17-59) U/L ALT 48 (21-72) U/L Alkaline Phosphatase 64 (38-126) U/L Total Protein 6.0 L (6.3-8.2) g/dL Albumin 3.5 (3.5-5.0) g/dL Current Medications Generic Name Dose Route Start Last Admin Trade Name Freq PRN Reason Stop Dose Admin Albuterol/Ipratropium 3 ml 06/17/17 12:00 Duoneb 0.5 Mg-3 Mg/3 Ml Soln INHALATION Q4HR [facility] Aspirin 325 mg 06/18/17 09:00 Aspirin PO DAILY [facility] Hydrochlorothiazide 50 mg 06/18/17 09:00 Hydrodiuril PO DAILY [facility] Sodium Chloride 1,000 mls @ 100 mls/hr 06/17/17 07:31 06/17/17 07:46 Saline 0.9% IV 06/17/17 17:30 100 mls/hr .Q10H [facility] Administration Diltiazem HCl 125 mg/ Sodium 125 mls @ 5 mls/hr 06/17/17 07:42 06/17/17 08:31 Chloride IV 06/18/17 07:41 10 mg/hr .Q24H [facility] 10 mls/hr Protocol Titration 5 MG/HR Heparin Sodium/Dextrose 25,000 500 mls @ 20 mls/hr 06/17/17 08:45 06/17/17 08 :45 unit/ IV Solution IV 11.31 units/kg/hr .Q24H [facility] 20 mls/hr Protocol Administration 11.31 UNITS/KG/HR Sodium Chloride 1,000 mls @ 100 mls/hr 06/17/17 09:45 Saline 0.9% IV .Q10H [facility] Losartan Potassium 100 mg 06/18/17 09:00 Cozaar PO QAM [facility] Methylprednisolone Sodium Succinate 60 mg 06/17/17 12:00 Solu-Medrol IV Q6HR [facility] Metoprolol Tartrate 25 mg 06/17/17 21:00 Lopressor PO BID [facility] Morphine Sulfate 30 mg 06/17/17 21:00 Ms Contin PO Q12HR [facility] Morphine Sulfate 15 mg 06/17/17 09:40 Msir PO TID PRN Pain Nitroglycerin 1 inch 06/17/17 12:00 Nitro-Bid Oint TOPICAL Q6HR [facility] Nitroglycerin 0.4 mg 06/17/17 09:36 Nitrostat SUBLINGUAL Q5M PRN Chest Pain Potassium Chloride 10 meq 06/18/17 09:00 K-Dur 10 PO DAILY [facility] Pravastatin Sodium 20 mg 06/18/17 09:00 Pravachol PO DAILY [facility] Intake and Output 06/16/17 06/17/17 06/17/17 22:59 06:59 14:59 Intake Total 503.25 Balance 503.25 Intake: Amount of Fluid Infused ( 500 ml) Intake, IV Titration 3.25 Amount Diltiazem 125 mg In 3.25 Sodium Chloride 0.9% 100 ml @ 5 MG/HR 5 mls/hr IV .Q24H [facility] Rx#:[id number] Other: Weight 88.451 kg Patient Weight 06/18/17 06:59 Weight 88.451 kg 06/17/17 07:35 06/17/17 07:35 Assessment and Plan Plan: This is a pleasant 66-year-old gentleman with stage IV lung cancer and history of aortic valve replacement presented to the hospital with shortness of breath and was found to be in A. fib with RVR. We will continue the heparin IV as well as Cardizem IV and continue the metoprolol by mouth. We'll obtain an echocardiogram was Doppler. Continue following up with him. Try to wean her from the Cardizem drip.
[2017-06-17] MEDS: methylPREDNISolone SOD SUCCI 125 MG/2 ML VIAL IV SCH ×3 (12:30→23:56)
[2017-06-17] MEDS: MORPHINE SULFATE IR 15 MG TABLET PO PRN ×2 (12:42→22:13)
[2017-06-17] MEDS ORDERED: HEPARIN SODIUM,PORCINE 5,000 UNIT/ML 1 ML VIAL IV PRN (12:43)
--- NOTE | 2017-06-17 13:05 | P.CNPUL ---
History of Present Illness Consult date: 06/17/17 Reason for consult: dyspnea, chest pain, COPD, hypoxemia Chief complaint: Shortness of breath History of present illness: Consult dated 06/17/2017 This is a 66-year-old gentleman with a history of stage IV lung cancer. He is undergoing immunotherapy for his lung cancer. He states he's had 5 or 6 treatments. Over last couple days she comes in complaining of increasing shortness of breath slight cough chills no fever. No chest pain or chest discomfort. Was also found to have a rapid heart rate. Told that his atrial fibrillation was acting up. The patient also has a previous history of aortic valve replacement. He tells me I see him in the office but I did not see her for about 8 months. Used to go to the [place] and see Dr. Gottlieb. I apparently diagnosed with COPD but he can't tell me the severity of his disease. I do not have my office chart in front of me.(In addition to lung cancer he has a history of hypertension hyperlipidemia COPD atrial fibrillation neuropathy peripheral vascular occlusive disease and previous MRSA infection of the lower extremity. I did mention aortic valve replacement bronchoscopy cardioversion and some right ankle screws and pins from a previous traumatic injury. Review of Systems A 12 point review of system is positive for shortness breath cough minimal phlegm production rapid heartbeat palpitations sweats chills no fever. Past Medical History Past Medical History: Atrial Fibrillation, Cancer, COPD, Hyperlipidemia, Hypertension, Vascular Disorder Additional Past Medical History / Comment(s): "growth in my lung", PVD, Neuropathy, wound lt great toe and left heel-healed, uses w/c,cane walk short distance with cane History of Any Multi-Drug Resistant Organisms: MRSA Date of last positivie culture/infection: 2012 MDRO Source:: rt ankle wound Past Surgical History: Orthopedic Surgery Additional Past Surgical History / Comment(s): aortic valve replacement, rt ankle surgery with screws and pins, cardioversion,eye surgery at age 15, bronchoscopy at [facility] in [place] Past Anesthesia/Blood Transfusion Reactions: No Reported Reaction Additional Past Anesthesia/Blood Transfusion Reaction / Comment(s): pt states "awakened prior to bronchoscopy being withdrawn." Smoking Status: Former smoker - Past Family History Mother Family Medical History: Cancer Additional Family Medical History / Comment(s): lung cancer Father Family Medical History: No Reported History Medications and Allergies Home Medications Medication Instructions Recorded Confirmed Type Hydrochlorothiazide [Hydrodiuril] 50 mg PO DAILY 03/26/16 06/17/17 History Losartan Potassium [Cozaar] 100 mg PO QAM 03/26/16 06/17/17 History Metoprolol Tartrate 25 mg PO BID 03/26/16 06/17/17 History Potassium Chloride ER [K-Dur 10] 10 meq PO DAILY 03/26/16 06/17/17 History Tiotropium 18 Mcg/Puff [Spiriva] 1 cap INHALATION RT-DAILY PRN 03/26/16 History Budesonide/Formoterol Fumarate 2 puff INHALATION RT-BID PRN 07/21/16 06/17/17 History [Symbicort 160-4.5 Mcg Inhaler] Morphine Sulfate ER [Ms Contin 30 mg PO TID 03/07/17 06/17/17 History 30Mg] Morphine Sulfate Ir [Msir] 15 mg PO TID PRN 03/07/17 06/17/17 History Pravastatin Sodium [Pravachol] 20 mg PO DAILY 03/07/17 06/17/17 History Albuterol Sulfate [Proair Hfa] 2 puff INHALATION RT-Q6H PRN 06/17/17 06/17/17 History Gabapentin [Neurontin] 300 mg PO TID 06/17/17 06/17/17 History Magnesium 200 mg PO DAILY 06/17/17 06/17/17 History Multivitamins, Thera [Multivitamin 1 tab PO DAILY 06/17/17 06/17/17 History (formulary)] [place]-3 Fatty Acids/Fish Oil [Fish 1 cap PO DAILY 06/17/17 06/17/17 History Oil 1,000 mg Softgel] Pyridoxine [Vitamin B-6] 50 mg PO DAILY 06/17/17 06/17/17 History Allergies Allergy/AdvReac Type Severity Reaction Status Date / Time lisinopril Allergy Cough Verified 06/17/17 10:38 sulfamethoxazole Allergy Swelling Verified 06/17/17 10:38 [From Bactrim] terazosin Allergy Unknown Verified 06/17/17 10:38 trimethoprim [From Bactrim] Allergy Swelling Verified 06/17/17 10:38 Physical Exam Osteopathic Statement: *. No significant issues noted on an osteopathic structural exam other than those noted in the History and Physical/Consult. Vitals: Vital Signs Temp Pulse Pulse Resp BP BP Pulse Ox 06/17/17 11:00 97.1 F L 112 H 20 150/63 98 06/17/17 10:23 97.5 F L 118 H 22 169/72 96 06/17/17 08:37 97.5 F L 144 H 24 142/77 98 06/17/17 08:20 122 H 06/17/17 08:13 136 H 06/17/17 07:50 129/61 06/17/17 07:27 98.9 F 145 H 27 H 98 Intake and Output 06/16/17 06/17/17 06/17/17 22:59 06:59 14:59 Intake Total 503.25 Balance 503.25 Intake: Amount of Fluid Infused ( 500 ml) Intake, IV Titration 3.25 Amount Diltiazem 125 mg In 3.25 Sodium Chloride 0.9% 100 ml @ 5 MG/HR 5 mls/hr IV .Q24H ONE Rx#:[id number] Other: Weight 88.451 kg Patient Weight 06/18/17 06:59 Weight 88.451 kg No acute distress, laying flat in bed. Not wearing any supplemental oxygen. Mild conversational dyspnea. HEENT examination is grossly unremarkable. Mixed membranes are moist. No oral lesions. Neck supple. Full range of motion. No adenopathy or thyromegaly Cardiovascular examination reveals distant heart sounds. He appears to be in sinus rhythm. S1-S2 normal. No distinct murmur noted. Lungs reveal a few scattered coarse rhonchi and wheezes. Breath sounds are diminished. Slight prolongation on forced maneuver. Breath sounds are diminished bilaterally. Abdomen soft bowel sounds are heard. No masses or tenderness. Extremities are intact. No cyanosis clubbing or edema. Skin without rash. Neurologic examination is brief but nonfocal. Results - Laboratory Findings CBC and BMP: 06/17/17 07:35 06/17/17 07:35 PT/INR, D-dimer PT 9.4 sec (9.0-12.0) 06/17/17 07:35 INR 0.9 (<1.2) 06/17/17 07:35 Abnormal lab findings: Abnormal Labs 06/17/17 06/17/17 06/17/17 07:35 07:35 07:35 WBC 18.8 H RDW 18.0 H Neutrophils # 15.6 H APTT BUN 22 H Glucose 192 H Total Creatine Kinase 51 L CK-MB (CK-2) 4.9 H* Troponin I 0.276 H* Total Protein 6.0 L 06/17/17 07:35 WBC RDW Neutrophils # APTT 20.2 L BUN Glucose Total Creatine Kinase CK-MB (CK-2) Troponin I Total Protein - Diagnostic Findings Chest x-ray: image reviewed (Labs x-rays a medications are all reviewed.) Assessment and Plan (1) Metastatic lung cancer (metastasis from lung to other site) Status: Acute (2) COPD (chronic obstructive pulmonary disease) Status: Acute (3) Hyperlipidemia Status: Acute (4) Hypertension Status: Acute (5) H/O aortic valve replacement Status: Acute (6) Acute exacerbation of chronic obstructive airways disease Status: Acute (7) Non-ST elevation myocardial infarction (NSTEMI) Status: Acute (8) Rapid atrial fibrillation Status: Acute Plan: Plan dated 06/17/2017 Meds labs and x-rays are reviewed. We'll make sure he is on good bronchodilators and steroids. Oral antibiotics would not be unreasonable. We' ll review all his medications. Additional recommendations suggestions are forthcoming. Prognosis is guarded. Time with Patient: Greater than 30
[2017-06-17] MEDS ORDERED: ALBUTEROL NEBULIZED 2.5 MG/3 ML INHALATION PRN (13:06)
[2017-06-17 14:47] LABS: Creatine Kinase MB 5.7 ng/mL (0.0-2.4); Troponin I 0.247 ng/mL (0.000-0.034)
[2017-06-17] MEDS: PRAVASTATIN SODIUM 20 MG TAB PO SCH (15:56)
[2017-06-17] MEDS: METOPROLOL TARTRATE 25 MG TAB PO SCH ×2 (15:56→22:16)
[2017-06-17] MEDS: LOSARTAN 50 MG TAB PO SCH (15:56)
[2017-06-17] MEDS: MORPHINE SULFATE ER 30 MG TABLET PO SCH ×2 (15:56→23:56)
[2017-06-17] MEDS: HYDROCHLOROTHIAZIDE 50 MG TAB PO SCH (15:56)
[2017-06-17] MEDS: ALBUTEROL NEBULIZED 2.5 MG/3 ML INHALATION SCH ×2 (16:15→20:06)
[2017-06-17] MEDS: FORMOTEROL FUMARATE 20 MCG/2 ML NEBU INHALATION SCH (20:06)
[2017-06-17] MEDS: BUDESONIDE 1 MG/2 ML NEBU INHALATION SCH (20:06)
[2017-06-17 20:21] LABS: Creatine Kinase MB 5.5 ng/mL (0.0-2.4); Troponin I 0.162 ng/mL (0.000-0.034)
[2017-06-17] MEDS ORDERED: METOPROLOL TARTRATE 25 MG TAB PO SCH (21:00)
[2017-06-17] MEDS ORDERED: MORPHINE SULFATE ER 30 MG TABLET PO SCH (21:00)
[2017-06-17] MEDS: AMOXIC-POT CLAV 875-125MG 1 EACH TAB PO SCH (22:18)
--- NOTE | 2017-06-17 22:58 | P.HPIM ---
History of Present Illness H&P Date: 06/17/17 Chief Complaint: Shortness of breath This is a 66-year-old male with a history of stage IV lung cancer currently undergoing chemotherapy , history of aortic valve replacement, COPD and a history of smoking came to ER with complaints of shortness of breath for about the past 2 days. He's had slight cough he denies any fevers or chills he has had sweats. He has exertional dyspnea. No overt chest pain but also he has chronic leg pain which is worse today. He states he was on a steroid and ran out and was placed on a different medication but it has not helped. He has a palpitations phlegm production he does have a slight cough. No peripheral edema. Patient was found to have it fibrillation with rapid ventricular rate. She also had elevated troponin level. He does have leukocytosis at 18.8 Chest x-ray showed COPD and cardiomegaly Review of Systems CONSTITUTIONAL: No fever, no malaise, no fatigue. HEENT: No recent visual problems or hearing problems. Denied any sore throat. CARDIOVASCULAR: No chest pain, orthopnea, PND, no palpitations, no syncope. PULMONARY: , Shortness of breath with minimal cough. no hemoptysis. GASTROINTESTINAL: No diarrhea, no nausea, no vomiting, no abdominal pain. Normoactive bowel sounds. NEUROLOGICAL: No headaches, no weakness, no numbness. HEMATOLOGICAL: Denies any bleeding or petechiae. GENITOURINARY: Denies any burning micturition, frequency, or urgency. MUSCULOSKELETAL/RHEUMATOLOGICAL: Denies any joint pain, swelling, or any muscle pain. ENDOCRINE: Denies any polyuria or polydipsia. The rest of the 14-point review of systems is negative. Past Medical History Past Medical History: Atrial Fibrillation, Cancer, COPD, Hyperlipidemia, Hypertension, Vascular Disorder Additional Past Medical History / Comment(s): "growth in my lung", PVD, Neuropathy, wound lt great toe and left heel-healed, uses w/c,cane walk short distance with cane History of Any Multi-Drug Resistant Organisms: MRSA Date of last positivie culture/infection: 2012 MDRO Source:: rt ankle wound Past Surgical History: Orthopedic Surgery Additional Past Surgical History / Comment(s): aortic valve replacement, rt ankle surgery with screws and pins, cardioversion,eye surgery at age 15, bronchoscopy at [facility] in [place] Past Anesthesia/Blood Transfusion Reactions: No Reported Reaction Additional Past Anesthesia/Blood Transfusion Reaction / Comment(s): pt states "awakened prior to bronchoscopy being withdrawn." Smoking Status: Former smoker - Past Family History Mother Family Medical History: Cancer Additional Family Medical History / Comment(s): lung cancer Father Family Medical History: No Reported History Medications and Allergies Home Medications Medication Instructions Recorded Confirmed Type Hydrochlorothiazide [Hydrodiuril] 50 mg PO DAILY 03/26/16 06/17/17 History Losartan Potassium [Cozaar] 100 mg PO QAM 03/26/16 06/17/17 History Metoprolol Tartrate 25 mg PO BID 03/26/16 06/17/17 History Potassium Chloride ER [K-Dur 10] 10 meq PO DAILY 03/26/16 06/17/17 History Tiotropium 18 Mcg/Puff [Spiriva] 1 cap INHALATION RT-DAILY PRN 03/26/16 History Budesonide/Formoterol Fumarate 2 puff INHALATION RT-BID PRN 07/21/16 06/17/17 History [Symbicort 160-4.5 Mcg Inhaler] Morphine Sulfate ER [Ms Contin 30 mg PO TID 03/07/17 06/17/17 History 30Mg] Morphine Sulfate Ir [Msir] 15 mg PO TID PRN 03/07/17 06/17/17 History Pravastatin Sodium [Pravachol] 20 mg PO DAILY 03/07/17 06/17/17 History Albuterol Sulfate [Proair Hfa] 2 puff INHALATION RT-Q6H PRN 06/17/17 06/17/17 History Gabapentin [Neurontin] 300 mg PO TID 06/17/17 06/17/17 History Magnesium 200 mg PO DAILY 06/17/17 06/17/17 History Multivitamins, Thera [Multivitamin 1 tab PO DAILY 06/17/17 06/17/17 History (formulary)] [place]-3 Fatty Acids/Fish Oil [Fish 1 cap PO DAILY 06/17/17 06/17/17 History Oil 1,000 mg Softgel] Pyridoxine [Vitamin B-6] 50 mg PO DAILY 06/17/17 06/17/17 History Allergies Allergy/AdvReac Type Severity Reaction Status Date / Time lisinopril Allergy Cough Verified 06/17/17 10:38 sulfamethoxazole Allergy Swelling Verified 06/17/17 10:38 [From Bactrim] terazosin Allergy Unknown Verified 06/17/17 10:38 trimethoprim [From Bactrim] Allergy Swelling Verified 06/17/17 10:38 Physical Exam Vitals: Vital Signs Temp Pulse Pulse Resp BP BP Pulse Ox 06/17/17 11:00 97.1 F L 112 H 20 150/63 98 06/17/17 10:23 97.5 F L 118 H 22 169/72 96 06/17/17 08:37 97.5 F L 144 H 24 142/77 98 06/17/17 08:20 122 H 06/17/17 08:13 136 H 06/17/17 07:50 129/61 06/17/17 07:27 98.9 F 145 H 27 H 98 Intake and Output 06/16/17 06/17/17 06/17/17 22:59 06:59 14:59 Intake Total 503.25 Balance 503.25 Intake: Amount of Fluid Infused ( 500 ml) Intake, IV Titration 3.25 Amount Diltiazem 125 mg In 3.25 Sodium Chloride 0.9% 100 ml @ 5 MG/HR 5 mls/hr IV .Q24H ONE Rx#:[id number] Other: Weight 88.451 kg Patient Weight 06/18/17 06:59 Weight 88.451 kg PHYSICAL EXAMINATION: Patient is lying in the bed comfortably, no acute distress, awake alert and oriented.. HEENT: Normocephalic. Neck is supple. Pupils reactive. Nostrils clear. Oral cavity is moist. Ears reveal no drainage. Neck reveals no JVD, carotid bruits, or thyromegaly. CHEsT EXAMINATION: Trachea is central. Symmetrical expansion. Bilateral air entry decreased with expiratory wheezing. CARDIAC: Normal S1, S2 with no gallops. No murmurs ABDOMEN: Soft. Bowel sounds normal. No organomegaly. No abdominal bruits. Extremities reveal no edema. No clubbing or cyanosis Neurologically awake, alert, oriented x3 with well-coordinated movements. Skin: no rash or skin lesions Musculoskeletal: no joint swelling or deformity. Results CBC & Chem 7: 06/17/17 07:35 06/17/17 07:35 Labs: Abnormal Lab Results - Last 24 Hours (Table) 06/17/17 06/17/1717 Range/Units 07:35 07:35 07:35 WBC 18.8 H (3.8-10.6) k/uL RDW 18.0 H (11.5-15.5) % Neutrophils # 15.6 H (1.3-7.7) k/uL APTT (22.0-30.0) sec BUN 22 H (9-20) mg/dL Glucose 192 H (74-99) mg/dL Total Creatine Kinase 51 L (55-170) U/L CK-MB (CK-2) 4.9 H* (0.0-2.4) ng/mL Troponin I 0.276 H* (0.000-0.034) ng/mL Total Protein 6.0 L (6.3-8.2) g/dL 06/17/17 Range/Units 07:35 WBC (3.8-10.6) k/uL RDW (11.5-15.5) % Neutrophils # (1.3-7.7) k/uL APTT 20.2 L (22.0-30.0) sec BUN (9-20) mg/dL Glucose (74-99) mg/dL Total Creatine Kinase (55-170) U/L CK-MB (CK-2) (0.0-2.4) ng/mL Troponin I (0.000-0.034) ng/mL Total Protein (6.3-8.2) g/dL Thrombosis Risk Factor Assmnt - Choose All That Apply Each Risk Factor Represents 2 Points: Age 61-74 years Thrombosis Risk Factor Assessment Total Risk Factor Score: 2 Thrombosis Risk Factor Assessment Level: Low Risk Assessment and Plan Plan: #1 atrial fibrillation with rapid ventricular rate #2 acute COPD exacerbation #3 elevated troponin level. Possible NSTEMI #4 history of aortic valve replacement #5 hypertension #6 hyperlipidemia #7 metastatic lung cancer currently undergoing chemotherapy #8 peripheral vascular disease and neuropathy #9 leukocytosis Plan: Patient will be continued on IV steroids and breathing treatments. Patient was on Cardizem drip and metoprolol has been restarted. Patient is on heparin drip. Rate is controlled now. Continue with current management. Cardiology and pulmonary is on board. Prognosis is guarded. Further recommendations based on the clinical course. Time with Patient: Greater than 30
[2017-06-18 05:56] LABS: Anisocytosis Slight; Basophils % (A) 0 %; CHCM 33.3; Eosinophils % (A) 0 %; HCT 33.8 % (39.0-53.0); HDW 2.69; HGB 11.3 gm/dL (13.0-17.5); Luc # (Auto) 0.07; Luc % (Auto) 1; Lymphocytes # (A) 0.8 k/uL (1.0-4.8); Lymphocytes % (A) 5 %; MCH 30.1 pg (25.0-35.0); MCHC 33.3 g/dL (31.0-37.0); MCV 90.5 fL (80.0-100.0); Mean Platelet Volume 7.2; Monocytes # (A) 0.6 k/uL (0-1.0); Monocytes % (A) 4 %; Neutrophils % (A) 91 %; RBC 3.73 m/uL (4.30-5.90); RDW 17.1 % (11.5-15.5); WBC 15.5 k/uL (3.8-10.6); WBC (Perox) 15.46
[2017-06-18] MEDS: methylPREDNISolone SOD SUCCI 125 MG/2 ML VIAL IV SCH ×3 (06:43→16:39)
[2017-06-18] MEDS: NITROGLYCERIN OINT 1 INCH/GM PACKET TOPICAL SCH ×3 (06:44→16:39)
[2017-06-18 06:46] LABS: Anion Gap 7 mmol/L; Blood Urea Nitrogen 25 mg/dL (9-20); Calcium 8.6 mg/dL (8.4-10.2); Carbon Dioxide 24 mmol/L (22-30); Chloride 102 mmol/L (98-107); Cholesterol 212 mg/dL (<200); Glucose 161 mg/dL (74-99); HDL Cholesterol 81 mg/dL (40-60); Non-African American GFR(MDRD) >60 (>60 ml/min/1.73 sqM); Potassium 3.3 mmol/L (3.5-5.1); Sodium 133 mmol/L (137-145)
[2017-06-18] MEDS: ALBUTEROL NEBULIZED 2.5 MG/3 ML INHALATION SCH ×4 (07:59→20:22)
[2017-06-18] MEDS: FORMOTEROL FUMARATE 20 MCG/2 ML NEBU INHALATION SCH ×2 (07:59→20:22)
[2017-06-18] MEDS: BUDESONIDE 1 MG/2 ML NEBU INHALATION SCH ×2 (08:07→20:22)
[2017-06-18] MEDS: TIOTROPIUM 18 MCG/PUFF INHALER INHALATION SCH (08:18)
[2017-06-18] MEDS: HYDROCHLOROTHIAZIDE 50 MG TAB PO SCH (08:25)
[2017-06-18] MEDS: PRAVASTATIN SODIUM 20 MG TAB PO SCH (08:25)
[2017-06-18] MEDS: ASPIRIN 325 MG TAB PO SCH (08:25)
[2017-06-18] MEDS: MORPHINE SULFATE ER 30 MG TABLET PO SCH ×2 (08:25→16:38)
[2017-06-18] MEDS: LOSARTAN 50 MG TAB PO SCH (08:26)
[2017-06-18] MEDS: METOPROLOL TARTRATE 25 MG TAB PO SCH (08:26)
[2017-06-18] MEDS: POTASSIUM CHLORIDE ER 10 MEQ TAB.ER.PRT PO SCH (08:26)
[2017-06-18] MEDS: AMOXIC-POT CLAV 875-125MG 1 EACH TAB PO SCH ×2 (08:26→21:12)
[2017-06-18] MEDS ORDERED: LOSARTAN 50 MG TAB PO SCH (09:00)
[2017-06-18] MEDS ORDERED: HYDROCHLOROTHIAZIDE 50 MG TAB PO SCH (09:00)
[2017-06-18] MEDS ORDERED: PRAVASTATIN SODIUM 20 MG TAB PO SCH (09:00)
--- NOTE | 2017-06-18 10:50 | P.PN ---
Subjective Principal diagnosis: Shortness of breath This is a pleasant 66-year-old male patient with a past medical history significant for aortic valve disease and status post aortic valve replacement with unknown details at this point as well as stage IV lung cancer presented to the hospital complaining of shortness of breath. The patient has been experiencing the shortness of breath over the last few days. He denies having any chest pain or chest discomfort. No orthopnea or PND. He was found to be in A. fib with RVR which seems to be newly diagnosis to him. The patient continues to be in A. fib with reasonably controlled heart rate. He is also on Cardizem IV. He is also on heparin IV. I am going to DC the Cardizem drip and increase the dose of metoprolol. We'll continue the heparin IV for now. Obtain an echocardiogram was Doppler and if he has no valvular heart disease will switch him to oral anticoagulation. Objective - Vital Signs Vital signs: Vital Signs Temp 96.8 F L 06/18/17 08:00 Pulse 96 06/18/17 08:16 Resp 20 06/18/17 08:00 BP 109/64 06/18/17 08:00 Pulse Ox 96 06/18/17 08:00 Intake & Output 06/17/17 06/18/17 06/18/17 18:59 06:59 18:59 Intake Total 1227.583 240 Output Total 300 Balance 1227.583 -60 Weight 88.451 kg 88.451 kg Intake: IV 40 Diltiazem 125 mg In 40 Sodium Chloride 0.9% 100 ml @ 5 MG/HR 5 mls/hr IV .Q24H ONE Rx#:[id number] Amount of Fluid Infused ( 500 ml) Intake, IV Titration 687.583 Amount Diltiazem 125 mg In 3.25 Sodium Chloride 0.9% 100 ml @ 5 MG/HR 5 mls/hr IV .Q24H ONE Rx#:[id number] Heparin Sodium,Porcine/ 284.333 D5w Pmx 25,000 unit In Dextrose/Water 1 500ml. bag @ 11.31 UNITS/KG/HR 20 mls/hr IV .Q24H [facility] Rx #:[id number] Sodium Chloride 0.9% 1, 400 000 ml @ 100 mls/hr IV . Q10H [facility] Rx#:[id number] Oral 240 Output: Urine 300 Other: Voiding Method Urinal # Voids 1 - Constitutional General appearance: Present: no acute distress - Respiratory Respiratory: bilateral: CTA - Cardiovascular Rhythm: irregularly irregular Heart sounds: normal: S1, S2 - Labs CBC & Chem 7: 06/18/17 05:31 06/18/17 05:31 Labs: Abnormal Lab Results - Last 24 Hours (Table) 06/17/17 06/17/17 06/17/17 Range/Units 13:53 17:25 19:25 WBC (3.8-10.6) k/uL RBC (4.30-5.90) m/uL Hgb (13.0-17.5) gm/dL Hct (39.0-53.0) % RDW (11.5-15.5) % Neutrophils # (1.3-7.7) k/uL Lymphocytes # (1.0-4.8) k/uL APTT 37.7 H (22.0-30.0) sec Sodium (137-145) mmol/L Potassium (3.5-5.1) mmol/L BUN (9-20) mg/dL Creatinine (0.66-1.25) mg/dL Glucose (74-99) mg/dL CK-MB (CK-2) 5.7 H* 5.5 H* (0.0-2.4) ng/mL Troponin I 0.247 H* 0.162 H* (0.000-0.034) ng/mL Cholesterol (<200) mg/dL LDL Cholesterol, Calc (0-99) mg/dL HDL Cholesterol (40-60) mg/dL 06/18/17 06/18/17 06/18/17 Range/Units 01:33 05:31 05:31 WBC 15.5 H (3.8-10.6) k/uL RBC 3.73 L (4.30-5.90) m/uL Hgb 11.3 L (13.0-17.5) gm/dL Hct 33.8 L (39.0-53.0) % RDW 17.1 H (11.5-15.5) % Neutrophils # 14.0 H (1.3-7.7) k/uL Lymphocytes # 0.8 L (1.0-4.8) k/uL APTT 67.8 H (22.0-30.0) sec Sodium 133 L (137-145) mmol/L Potassium 3.3 L (3.5-5.1) mmol/L BUN 25 H (9-20) mg/dL Creatinine 0.60 L (0.66-1.25) mg/dL Glucose 161 H (74-99) mg/dL CK-MB (CK-2) (0.0-2.4) ng/mL Troponin I (0.000-0.034) ng/mL Cholesterol 212 H (<200) mg/dL LDL Cholesterol, Calc 117 H (0-99) mg/dL HDL Cholesterol 81 H (40-60) mg/dL 06/18/17 Range/Units 05:31 WBC (3.8-10.6) k/uL RBC (4.30-5.90) m/uL Hgb (13.0-17.5) gm/dL Hct (39.0-53.0) % RDW (11.5-15.5) % Neutrophils # (1.3-7.7) k/uL Lymphocytes # (1.0-4.8) k/uL APTT 62.8 H (22.0-30.0) sec Sodium (137-145) mmol/L Potassium (3.5-5.1) mmol/L BUN (9-20) mg/dL Creatinine (0.66-1.25) mg/dL Glucose (74-99) mg/dL CK-MB (CK-2) (0.0-2.4) ng/mL Troponin I (0.000-0.034) ng/mL Cholesterol (<200) mg/dL LDL Cholesterol, Calc (0-99) mg/dL HDL Cholesterol (40-60) mg/dL Assessment and Plan Plan: This is a pleasant 66-year-old gentleman with stage IV lung cancer and history of aortic valve replacement presented to the hospital with shortness of breath and was found to be in A. fib with RVR. I will DC the Cardizem IV and increase the dose of metoprolol. Continue heparin IV for now. Follow-up on the echocardiogram.
--- NOTE | 2017-06-18 10:53 | P.PN ---
Subjective Progress note dated 06/18/2017 This is a 66-year-old male with a history of stage IV lung cancer. Undergoing immunotherapy for his lung cancer. He's had 5 or 6 treatments. Comes into the hospital with increasing shortness of breath slight cough chills but no fever. No chest pain or chest discomfort. Was found to have atrial fibrillation with RVR. The patient has a previous history of aortic valve replacement. I'm not seen him in my office for about 8-10 months he tells me. Typically sees a physician at the ID clinic. Does have a history of underlying COPD. Does not remember the severity of his disease. In addition to lung cancer COPD aortic valve replacement, the patient has a history of hypertension hyperlipidemia peripheral last occlusive disease neuropathy and previous MRSA infection of the lower extremity. Feeling a bit better today. Less short of breath. Objective - Vital Signs Vital signs: Vital Signs Temp 96.8 F L 06/18/17 08:00 Pulse 96 06/18/17 08:16 Resp 20 06/18/17 08:00 BP 109/64 06/18/17 08:00 Pulse Ox 96 06/18/17 08:00 Intake & Output 06/17/17 06/18/17 06/18/17 18:59 06:59 18:59 Intake Total 1227.583 240 Output Total 300 Balance 1227.583 -60 Weight 88.451 kg 88.451 kg Intake: IV 40 Diltiazem 125 mg In 40 Sodium Chloride 0.9% 100 ml @ 5 MG/HR 5 mls/hr IV .Q24H ONE Rx#:[id number] Amount of Fluid Infused ( 500 ml) Intake, IV Titration 687.583 Amount Diltiazem 125 mg In 3.25 Sodium Chloride 0.9% 100 ml @ 5 MG/HR 5 mls/hr IV .Q24H ONE Rx#:[id number] Heparin Sodium,Porcine/ 284.333 D5w Pmx 25,000 unit In Dextrose/Water 1 500ml. bag @ 11.31 UNITS/KG/HR 20 mls/hr IV .Q24H [facility] Rx #:[id number] Sodium Chloride 0.9% 1, 400 000 ml @ 100 mls/hr IV . Q10H [facility] Rx#:[id number] Oral 240 Output: Urine 300 Other: Voiding Method Urinal # Voids 1 - Exam No acute distress, oriented 3. No respiratory distress. HEENT examinations grossly unremarkable. Nasal O2 in place. Supple. Full range of motion. No adenopathy or thyromegaly. Neck veins are flat. Cardiovascular examination reveals regular rhythm rate. Appears to be back in sinus rhythm. S1-S2 normal. Heart rate about 90. Lungs reveal relatively clear but diminished breath sounds. No wheezes rhonchi or crackles. Abdomen soft bowel sounds are heard. Extremities are intact. No cyanosis clubbing or edema. Skin is without rash. Neurologic examination is nonfocal. - Labs CBC & Chem 7: 06/18/17 05:31 06/18/17 05:31 Labs: Abnormal Lab Results - Last 24 Hours (Table) 06/17/17 06/17/17 06/17/17 Range/Units 13:53 17:25 19:25 WBC (3.8-10.6) k/uL RBC (4.30-5.90) m/uL Hgb (13.0-17.5) gm/dL Hct (39.0-53.0) % RDW (11.5-15.5) % Neutrophils # (1.3-7.7) k/uL Lymphocytes # (1.0-4.8) k/uL APTT 37.7 H (22.0-30.0) sec Sodium (137-145) mmol/L Potassium (3.5-5.1) mmol/L BUN (9-20) mg/dL Creatinine (0.66-1.25) mg/dL Glucose (74-99) mg/dL CK-MB (CK-2) 5.7 H* 5.5 H* (0.0-2.4) ng/mL Troponin I 0.247 H* 0.162 H* (0.000-0.034) ng/mL Cholesterol (<200) mg/dL LDL Cholesterol, Calc (0-99) mg/dL HDL Cholesterol (40-60) mg/dL 06/18/17 06/18/17 06/18/17 Range/Units 01:33 05:31 05:31 WBC 15.5 H (3.8-10.6) k/uL RBC 3.73 L (4.30-5.90) m/uL Hgb 11.3 L (13.0-17.5) gm/dL Hct 33.8 L (39.0-53.0) % RDW 17.1 H (11.5-15.5) % Neutrophils # 14.0 H (1.3-7.7) k/uL Lymphocytes # 0.8 L (1.0-4.8) k/uL APTT 67.8 H (22.0-30.0) sec Sodium 133 L (137-145) mmol/L Potassium 3.3 L (3.5-5.1) mmol/L BUN 25 H (9-20) mg/dL Creatinine 0.60 L (0.66-1.25) mg/dL Glucose 161 H (74-99) mg/dL CK-MB (CK-2) (0.0-2.4) ng/mL Troponin I (0.000-0.034) ng/mL Cholesterol 212 H (<200) mg/dL LDL Cholesterol, Calc 117 H (0-99) mg/dL HDL Cholesterol 81 H (40-60) mg/dL 06/18/17 Range/Units 05:31 WBC (3.8-10.6) k/uL RBC (4.30-5.90) m/uL Hgb (13.0-17.5) gm/dL Hct (39.0-53.0) % RDW (11.5-15.5) % Neutrophils # (1.3-7.7) k/uL Lymphocytes # (1.0-4.8) k/uL APTT 62.8 H (22.0-30.0) sec Sodium (137-145) mmol/L Potassium (3.5-5.1) mmol/L BUN (9-20) mg/dL Creatinine (0.66-1.25) mg/dL Glucose (74-99) mg/dL CK-MB (CK-2) (0.0-2.4) ng/mL Troponin I (0.000-0.034) ng/mL Cholesterol (<200) mg/dL LDL Cholesterol, Calc (0-99) mg/dL HDL Cholesterol (40-60) mg/dL Assessment and Plan (1) Metastatic lung cancer (metastasis from lung to other site) Status: Acute (2) COPD (chronic obstructive pulmonary disease) Status: Acute (3) Hyperlipidemia Status: Acute (4) Hypertension Status: Acute (5) H/O aortic valve replacement Status: Acute (6) Acute exacerbation of chronic obstructive airways disease Status: Acute (7) Non-ST elevation myocardial infarction (NSTEMI) Status: Acute (8) Rapid atrial fibrillation Status: Acute Plan: Plan dated 06/17/2017 Meds labs and x-rays are reviewed. We'll make sure he is on good bronchodilators and steroids. Oral antibiotics would not be unreasonable. We' ll review all his medications. Additional recommendations suggestions are forthcoming. Prognosis is guarded. Plan dated 06/18/2017 Meds labs and x-rays are reviewed as they were yesterday. We'll continue to follow. We will get him on good bronchodilators and steroids. Antibiotics were also been added. We'll continue to follow. Prognosis is guarded. His shortness of breath is multifactorial in part related to underlying COPD but also his atrial fibrillation with RVR. Again additional recommendations are forthcoming. Time with Patient: Less than 30
[2017-06-18] MEDS ORDERED: METOPROLOL TARTRATE 25 MG TAB PO ONE (11:00)
[2017-06-18] MEDS: MORPHINE SULFATE IR 15 MG TABLET PO PRN ×2 (11:18→21:13)
--- NOTE | 2017-06-18 13:19 | ECHOF ---
Referral Reason:A.fib MEASUREMENTS -------- HEIGHT: 177.8 cm WEIGHT: 88.5 kg BP: 150/63 LAESV Index (A-L): 29.32 ml/m Ao Diam: 2.3 cm (2.0 - 3.7) AV Cusp: 1.4 cm (1.5 - 2.6) LA Diam: 4.4 cm (2.7 - 3.8) MV E Alfonso: 1.18 m/s MV DecT: 249 ms MV A Alfonso: 0.70 m/s MV E/A Ratio: 1.69 AV maxP.62 mmHg AV meanP.95 mmHg FINDINGS -------- Resting tachycardia (HR>100bpm). This was a technically difficult study with suboptimal views. Patient refused Definity due to shortness of breath. The left ventricular size is normal. Left ventricular wall thickness is normal. Overall left ventricular systolic function is normal with, an EF between 65 - 70 %. The right ventricle is normal in size and function. LA is midly dilated 29-33ml/m2. The right atrium is normal in size. Normally functioning bioprosthetic valve. The mitral valve leaflets are mildly thickened. There is trace to mild mitral regurgitation. Trace tricuspid regurgitation present. Right ventricular systolic pressure is normal at < 35 mmHg. There is no evidence of pulmonary hypertension. The pulmonic valve was not well visualized. The aortic root size is normal. Normal inferior vena cava with normal inspiratory collapse consistent with estimated right atrial pressure of 5 mmHg. There is a small pericardial effusion is located near the right ventricle. CONCLUSIONS -------- 1. Resting tachycardia (HR>100bpm). 2. Right ventricular systolic pressure is normal at < 35 mmHg. 3. There is no evidence of pulmonary hypertension. 4. The pulmonic valve was not well visualized. 5. The aortic root size is normal. 6. There is a small pericardial effusion is located near the right ventricle. 7. This was a technically difficult study with suboptimal views. 8. The left ventricular size is normal. 9. Overall left ventricular systolic function is normal with, an EF between 65 - 70 %. 10. LA is midly dilated 29-33ml/m2. 11. Normally functioning bioprosthetic valve. 12. The mitral valve leaflets are mildly thickened. 13. There is trace to mild mitral regurgitation. 14. Trace tricuspid regurgitation present. FINAL RAIL CUTTER: Abbe Guardado RDCS
[2017-06-18] MEDS: METOPROLOL TARTRATE 50 MG TAB PO SCH (21:13)
[2017-06-19] MEDS: MORPHINE SULFATE ER 30 MG TABLET PO SCH ×3 (00:07→16:13)
[2017-06-19] MEDS: methylPREDNISolone SOD SUCCI 125 MG/2 ML VIAL IV SCH ×3 (00:08→11:41)
[2017-06-19] MEDS: NITROGLYCERIN OINT 1 INCH/GM PACKET TOPICAL SCH ×3 (00:09→11:42)
[2017-06-19 06:46] VITALS: TEMP 97
[2017-06-19] MEDS: HEPARIN SODIUM,PORCINE/D5W PMX 25,000 UNIT in DEXTROSE/WATER 1 500ML.BAG IV SCH (06:48)
[2017-06-19] MEDS: BUDESONIDE 1 MG/2 ML NEBU INHALATION SCH (08:14)
[2017-06-19] MEDS: TIOTROPIUM 18 MCG/PUFF INHALER INHALATION SCH (08:14)
[2017-06-19] MEDS: FORMOTEROL FUMARATE 20 MCG/2 ML NEBU INHALATION SCH (08:14)
[2017-06-19] MEDS: ALBUTEROL NEBULIZED 2.5 MG/3 ML INHALATION SCH ×3 (08:14→15:21)
[2017-06-19] MEDS: METOPROLOL TARTRATE 50 MG TAB PO SCH (08:15)
[2017-06-19] MEDS: POTASSIUM CHLORIDE ER 10 MEQ TAB.ER.PRT PO SCH (08:16)
[2017-06-19] MEDS: PRAVASTATIN SODIUM 20 MG TAB PO SCH (08:16)
[2017-06-19] MEDS: AMOXIC-POT CLAV 875-125MG 1 EACH TAB PO SCH (08:16)
[2017-06-19] MEDS: LOSARTAN 50 MG TAB PO SCH (08:16)
[2017-06-19] MEDS: ASPIRIN 325 MG TAB PO SCH (08:16)
[2017-06-19] MEDS: HYDROCHLOROTHIAZIDE 50 MG TAB PO SCH (08:16)
[2017-06-19 08:24] VITALS: RESP 16
[2017-06-19] MEDS ORDERED: APIXABAN 5 MG TAB PO SCH (09:00)
[2017-06-19 11:33] VITALS: BP 115/70
[2017-06-19] MEDS: MORPHINE SULFATE IR 15 MG TABLET PO PRN (11:39)
--- NOTE | 2017-06-19 12:08 | P.PN ---
Subjective Principal diagnosis: Shortness of breath Pleasant 66-year-old gentleman with known history of aortic valve replacement, hypertension, hyperlipidemia, stage IV lung cancer, who presented to the hospital with symptoms of progressively worsening shortness of breath. Patient was found to be in atrial fibrillation with rapid ventricular response. He continues to be in A. fib this morning heart rate in the 90s. Patient was initiated on Eliquis for anticoagulation. Seen and examined this morning, breathing is improving. Echocardiogram with Doppler study was performed which revealed an ejection fraction of 65-70%. Normally functioning bioprosthetic valve. White blood cell count 15,000, hemoglobin 11.3, potassium 3.3, creatinine 0.6. We will discontinue the patient's aspirin. Replace potassium. Discontinue Nitropaste. Objective - Vital Signs Vital signs: Vital Signs Temp 97.0 F L 06/19/17 04:00 Pulse 97 06/19/17 11:33 Resp 16 06/19/17 11:33 BP 115/70 06/19/17 11:33 Pulse Ox 96 06/19/17 11:33 Intake & Output 06/18/17 06/19/17 06/19/17 18:59 06:59 18:59 Intake Total 1141.6 Balance 1141.6 Weight 92.2 kg Intake: IV 401.6 Diltiazem 125 mg In 40 Sodium Chloride 0.9% 100 ml @ 5 MG/HR 5 mls/hr IV .Q24H ONE Rx#:[id number] Heparin Sodium,Porcine/ 201.6 D5w Pmx 25,000 unit In Dextrose/Water 1 500ml. bag @ 11.31 UNITS/KG/HR 20 mls/hr IV .Q24H [facility] Rx #:[id number] Sodium Chloride 0.9% 1, 160 000 ml @ 100 mls/hr IV . Q10H STA Rx#:[id number] Oral 740 Other: Voiding Method Urinal Urinal # Voids 300 - Exam PHYSICAL EXAMINATION: HEENT: Head is atraumatic, normocephalic. Pupils equal, round. Neck is supple. There is no elevated jugular venous pressure. HEART EXAMINATION: Heart S1, S2 irregularly irregular . No murmur or gallop heard. CHEST EXAMINATION: Lungs are clear with diminished air entry to the bases. ABDOMEN: Soft, nontender. Bowel sounds are heard. No organomegaly noted. EXTREMITIES: 2+ peripheral pulses with no evidence of peripheral edema and no calf tenderness noted. NEUROLOGIC patient is awake, alert and oriented -3. . - Labs CBC & Chem 7: 06/18/17 05:31 06/18/17 05:31 Assessment and Plan (1) Paroxysmal a-fib Status: Acute (2) COPD (chronic obstructive pulmonary disease) Status: Acute (3) H/O aortic valve replacement Status: Acute (4) Hyperlipidemia Status: Acute (5) Hypertension Status: Acute (6) Metastatic lung cancer (metastasis from lung to other site) Status: Acute Plan: From cardiology's perspective, we'll continue current medications which include Eliquis 5 mg one tablet by mouth twice a day. DNP note has been reviewed, I agree with a documented findings and plan of care. Patient was seen and examined.
[2017-06-19 12:13] VITALS: PULSE 96
--- NOTE | 2017-06-19 14:42 | P.PN ---
Subjective 66-year-old male patient with metastatic lung cancer under treatment, comes into the hospital because of increased shortness of breath. The patient denies having any chest pain. He was in acute COPD exacerbation. At the same time the patient was found to be in atrial fibrillation with rapid ventricular response. He has had previous aortic valve replacement that was done percutaneously. He also has peripheral vascular disease with extensive calcification the lower extremities, hypertension, hyperlipidemia and obesity. On 06/19/2017, the patient is being seen for a follow-up. He is doing better. Less short of breath. His COPD exacerbation improving. His atrial fibrillation is under better control. He is on anticoagulation. No chest pain. No fever or chills. No change in mental status. No signs of any congestion heart failure. He is hemodynamically stable. The patient is on oral Augmentin 875 mg 1 tablet twice a day. He is also on a combination of albuterol neb last treatment [id number], Spiriva 1 a day and Perforomist one neb last treatment twice a day. Objective - Vital Signs Vital signs: Vital Signs Temp 97.0 F L 06/19/17 04:00 Pulse 96 06/19/17 12:21 Resp 16 06/19/17 12:00 BP 115/70 06/19/17 11:33 Pulse Ox 96 06/19/17 11:33 Intake & Output 06/18/17 06/19/17 06/19/17 18:59 06:59 18:59 Intake Total 1141.6 Balance 1141.6 Weight 92.2 kg Intake: IV 401.6 Diltiazem 125 mg In 40 Sodium Chloride 0.9% 100 ml @ 5 MG/HR 5 mls/hr IV .Q24H ONE Rx#:[id number] Heparin Sodium,Porcine/ 201.6 D5w Pmx 25,000 unit In Dextrose/Water 1 500ml. bag @ 11.31 UNITS/KG/HR 20 mls/hr IV .Q24H [facility] Rx #:[id number] Sodium Chloride 0.9% 1, 160 000 ml @ 100 mls/hr IV . Q10H STA Rx#:[id number] Oral 740 Other: Voiding Method Urinal Urinal # Voids 300 - Exam The patient appeared well nourished and normally developed. Vital signs as documented. Gen. appearance the patient is obese and calm and comfortable. He is not using accessory muscles of breathing. Head exam is unremarkable. No scleral icterus or corneal arcus noted. Neck is without jugular venous distension, thyromegaly, or carotid bruits. Carotid upstrokes are brisk bilaterally. Lungs are diminished breath sounds bilaterally along with some scattered external wheezes heard throughout the lung blackburn. No crackles. No rhonchi. Cardiac exam reveals the PMI to be normally sized and situated. Rhythm is irregular. First and second heart sounds normal. No murmurs, rubs or gallops. Abdominal exam reveals normal bowel sounds, no masses, no organomegaly and no aortic enlargement. Extremities are nonedematous and both femoral and pedal pulses are normal. Skin no ulceration or anyone sputum muscular skeletal exam is within normal limits. Neurologic exam the patient is alert and oriented and there is no focal neurological deficit. - Labs CBC & Chem 7: 06/18/17 05:31 06/18/17 05:31 Assessment and Plan Plan: Assessment 1 acute COPD exacerbation, improving and the patient is less short of breath compared to yesterday 2 metastatic lung cancer, probably of a non-small cell type being treated at [facility] and [place] 3 new-onset atrial fibrillation with rapid ventricular response, currently under better control 4 history of aortic valve replacement 5 hypertension 6 hyperlipidemia 7 obesity Plan The patient is stable. Continue Spiriva 1 a day and Perforomist neb last 2 minutes twice a day. Continued IV Solu-Medrol and switch this patient to oral prednisone burst taper. In fact upon further discussion with him he prefers to use Decadron over prednisone knowing that he has seen better response specially with his breathing and his musculoskeletal pains in the lower extremities. I think this is doable evidence and reasonable alternative. Continue monitoring the atrial fibrillation. Continue anticoagulation. Cardiology is on the case echocardiogram was done and the patient has no evidence of any pulmonary hypertension, small pericardial effusion is present over the right ventricle otherwise ejection fraction is within normal and aortic valve is also functional.
[2017-06-19] MEDS ORDERED: METOPROLOL TARTRATE 50 MG TAB PO SCH (16:00)
[2017-06-19] MEDS ORDERED: methylPREDNISolone SOD SUCCI 40 MG/ML 1 ML VIAL IV SCH (18:00)
--- NOTE | 2017-06-19 21:50 | P.PN ---
Subjective Principal diagnosis: Atrial fibrillation with rapid ventricular rate COPD examination This is a 66-year-old male with a history of stage IV lung cancer currently undergoing chemotherapy , history of aortic valve replacement, COPD and a history of smoking came to ER with complaints of shortness of breath for about the past 2 days. He's had slight cough he denies any fevers or chills he has had sweats. He has exertional dyspnea. No overt chest pain but also he has chronic leg pain which is worse today. He states he was on a steroid and ran out and was placed on a different medication but it has not helped. He has a palpitations phlegm production he does have a slight cough. No peripheral edema. Patient was found to have it fibrillation with rapid ventricular rate. She also had elevated troponin level. He does have leukocytosis at 18.8 Chest x-ray showed COPD and cardiomegaly 06/18/2017 Objective - Vital Signs Vital signs: Vital Signs Temp 96.8 F L 06/18/17 20:00 Pulse 68 06/18/17 20:56 Resp 20 06/18/17 20:00 BP 132/75 06/18/17 20:00 Pulse Ox 98 06/18/17 20:00 Intake & Output 06/18/17 06/18/17 06/19/17 06:59 18:59 06:59 Intake Total 240 1141.6 Output Total 300 Balance -60 1141.6 Weight 88.451 kg Intake: IV 401.6 Diltiazem 125 mg In 40 Sodium Chloride 0.9% 100 ml @ 5 MG/HR 5 mls/hr IV .Q24H ONE Rx#:[id number] Heparin Sodium,Porcine/ 201.6 D5w Pmx 25,000 unit In Dextrose/Water 1 500ml. bag @ 11.31 UNITS/KG/HR 20 mls/hr IV .Q24H [facility] Rx #:[id number] Sodium Chloride 0.9% 1, 160 000 ml @ 100 mls/hr IV . Q10H STA Rx#:[id number] Oral 240 740 Output: Urine 300 Other: Voiding Method Urinal Urinal # Voids 1 - Exam Patient is lying in the bed comfortably, no acute distress, awake alert and oriented.. HEENT: Normocephalic. Neck is supple. Pupils reactive. Nostrils clear. Oral cavity is moist. Ears reveal no drainage. Neck reveals no JVD, carotid bruits, or thyromegaly. CHEsT EXAMINATION: Trachea is central. Symmetrical expansion. Bilateral air entry improved and prolonged expiration. No wheezing noted CARDIAC: Normal S1, S2 with no gallops. No murmurs ABDOMEN: Soft. Bowel sounds normal. No organomegaly. No abdominal bruits. Extremities reveal no edema. No clubbing or cyanosis Neurologically awake, alert, oriented x3 with well-coordinated movements. Skin: no rash or skin lesions Musculoskeletal: no joint swelling or deformity. - Labs CBC & Chem 7: 06/18/17 05:31 06/18/17 05:31 Labs: Abnormal Lab Results - Last 24 Hours (Table) 06/18/17 06/18/17 06/18/17 Range/Units 01:33 05:31 05:31 WBC 15.5 H (3.8-10.6) k/uL RBC 3.73 L (4.30-5.90) m/uL Hgb 11.3 L (13.0-17.5) gm/dL Hct 33.8 L (39.0-53.0) % RDW 17.1 H (11.5-15.5) % Neutrophils # 14.0 H (1.3-7.7) k/uL Lymphocytes # 0.8 L (1.0-4.8) k/uL APTT 67.8 H (22.0-30.0) sec Sodium 133 L (137-145) mmol/L Potassium 3.3 L (3.5-5.1) mmol/L BUN 25 H (9-20) mg/dL Creatinine 0.60 L (0.66-1.25) mg/dL Glucose 161 H (74-99) mg/dL Cholesterol 212 H (<200) mg/dL LDL Cholesterol, Calc 117 H (0-99) mg/dL HDL Cholesterol 81 H (40-60) mg/dL 06/18/17 Range/Units 05:31 WBC (3.8-10.6) k/uL RBC (4.30-5.90) m/uL Hgb (13.0-17.5) gm/dL Hct (39.0-53.0) % RDW (11.5-15.5) % Neutrophils # (1.3-7.7) k/uL Lymphocytes # (1.0-4.8) k/uL APTT 62.8 H (22.0-30.0) sec Sodium (137-145) mmol/L Potassium (3.5-5.1) mmol/L BUN (9-20) mg/dL Creatinine (0.66-1.25) mg/dL Glucose (74-99) mg/dL Cholesterol (<200) mg/dL LDL Cholesterol, Calc (0-99) mg/dL HDL Cholesterol (40-60) mg/dL Assessment and Plan Plan: #1 atrial fibrillation with rapid ventricular rate. New-onset #2 acute COPD exacerbation #3 elevated troponin level. Possible NSTEMI versus demand mismatch #4 history of aortic valve replacement #5 hypertension #6 hyperlipidemia #7 metastatic lung cancer . Had chemotherapy #8 peripheral vascular disease and neuropathy #9 leukocytosis Plan: Patient will be continued on IV steroids and breathing treatments. Patient was on Cardizem drip and metoprolol has been restarted. Patient is on heparin drip. Rate is controlled now. Continue with current management. Cardiology and pulmonary is on board. Prognosis is guarded. Further recommendations based on the clinical course.
== END 2017-06-19 17:43 | disposition home or self-care (01) | DRG 190 ==
LOC: EC 07:19 → 6SEL 09:40
PROVIDERS: ADMIT Internal Medicine; ATTEND Internal Medicine
DX: J44.1 Chronic obstructive pulmonary disease with (acute) exacerbation (principal); I21.4 Non-ST elevation (NSTEMI) myocardial infarction; J80 Acute respiratory distress syndrome; C34.90 Malignant neoplasm of unspecified part of unspecified bronchus or lung; C79.9 Secondary malignant neoplasm of unspecified site; I48.0 Paroxysmal atrial fibrillation; G62.9 Polyneuropathy, unspecified; I10 Essential (primary) hypertension; E78.5 Hyperlipidemia, unspecified; I73.9 Peripheral vascular disease, unspecified; E66.9 Obesity, unspecified; G89.29 Other chronic pain; M79.606 Pain in leg, unspecified; I35.9 Nonrheumatic aortic valve disorder, unspecified; Z79.82 Long term (current) use of aspirin; Z86.69 Personal history of other diseases of the nervous system and sense organs; Z79.899 Other long term (current) drug therapy; Z95.2 Presence of prosthetic heart valve; Z88.1 Allergy status to other antibiotic agents; Z88.2 Allergy status to sulfonamides; Z88.8 Allergy status to other drugs, medicaments and biological substances; Z79.51 Long term (current) use of inhaled steroids; Z79.01 Long term (current) use of anticoagulants; Z80.1 Family history of malignant neoplasm of trachea, bronchus and lung; Z87.891 Personal history of nicotine dependence; Z86.14 Personal history of Methicillin resistant Staphylococcus aureus infection
CPT/HCPCS: 36415; 71020; 80048; 80053; 80061; 82550; 82553; 83735; 83880; 84484; 85025; 85610; 85730; 93005; 93306; 94640; 94760; 96365; 96366; 96368; 96375; 96376; 99291

== ENCOUNTER 2017-07-09 08:31 | Inpatient (IN) | payer OTHER ==
[2017-07-09] MEDS ORDERED: MORPHINE SULFATE 10 MG/ML SYRINGE IVP STA ×2 (09:13→10:55)
[2017-07-09] MEDS ORDERED: DILTIAZEM 5 MG/ML 5 ML VIAL IV STA (09:13)
[2017-07-09 09:29] LABS: Anisocytosis Slight; CH 31.5; CHCM 33.8; HCT 34.5 % (39.0-53.0); HDW 2.99; HGB 11.2 gm/dL (13.0-17.5); Immature Gran Flag Slight; MCH 30.7 pg (25.0-35.0); MCHC 32.6 g/dL (31.0-37.0); MCV 94.1 fL (80.0-100.0); Macrocytosis Slight; Mean Platelet Volume 7.6; RBC 3.67 m/uL (4.30-5.90); WBC 17.8 k/uL (3.8-10.6); WBC (Perox) 18.75
[2017-07-09] MEDS ORDERED: ONDANSETRON 8 MG in SODIUM CHLORIDE 0.9% 50 ML IVPB ONE (09:30)
[2017-07-09] MEDS: DILTIAZEM 125 MG in SODIUM CHLORIDE 0.9% 100 ML IV SCH (09:34)
[2017-07-09 09:41] LABS: ALT 32 U/L (21-72); AST 22 U/L (17-59); Alkaline Phosphatase 59 U/L (38-126); Anion Gap 13 mmol/L; Blood Urea Nitrogen 30 mg/dL (9-20); Calcium 9.3 mg/dL (8.4-10.2); Carbon Dioxide 29 mmol/L (22-30); Chloride 95 mmol/L (98-107); Glucose 253 mg/dL (74-99); Non-African American GFR(MDRD) >60 (>60 ml/min/1.73 sqM); Potassium 3.8 mmol/L (3.5-5.1); Sodium 137 mmol/L (137-145); Total Bilirubin 0.4 mg/dL (0.2-1.3)
[2017-07-09 09:48] LABS: Add Differential Manual Differential
[2017-07-09 09:50] LABS: Band Neutrophils % 4 %; Metamyelocytes % 2 %; Myelocytes % 1 %; Nucleated Red Blood Cells 0 /100 WBC (0-0); Total Cells Counted 200
[2017-07-09 09:57] LABS: Partial Thromboplastin Time 20.8 sec (22.0-30.0)
[2017-07-09 10:03] LABS: Creatine Kinase MB 1.8 ng/mL (0.0-2.4)
[2017-07-09 10:04] LABS: Troponin I 0.05 ng/mL (0.000-0.034)
--- NOTE | 2017-07-09 10:28 | XR ---
EXAMINATION TYPE: XR chest 2V DATE OF EXAM: 07/09/2017 HISTORY: difficulty breathing. REFERENCE: Previous study dated 06/30/2017. FINDINGS: Lungs are overinflated. The heart is enlarged. The lungs appear clear. Pleural spaces are c lear. There is been a previous midline sternotomy. IMPRESSION: 1. COPD. 2. CARDIOMEGALY.
--- NOTE | 2017-07-09 10:29 | XR ---
EXAMINATION TYPE: XR foot complete bilateral , 6 VIEWS DATE OF EXAM ORDERED: 07/09/2017 HISTORY: Pain. COMPARISON: None. FINDINGS: There has been a previous internal fixation of the medial malleolus on the right. No fract ure, dislocation or other acute osseous lesion is seen. IMPRESSION: 1. NO ACUTE OSSEOUS LESION. 2. POSTSURGICAL CHANGE.
--- NOTE | 2017-07-09 10:40 | ED ---
SOB HPI - General Chief Complaint: Shortness of Breath Stated Complaint: swollen feet Time Seen by Provider: 07/09/17 08:41 Source: patient, family Mode of arrival: wheelchair Limitations: no limitations - History of Present Illness Initial Comments: 66 years old male who presents with the shortness of breath, he presents with atrial fibrillation with rapid ventricular response, he has a multiple comorbidities he was diagnosed with advanced reaction, HE IS ON ALIQUOTS HE BUMPED HIS ANKLE YESTERDAY WHEN HE STUMBLEDCOMPLAINING ABOUT PAIN IN HIS BOTH FEET THOUGH HE HAS A HISTORY OF NEUROPATHY GABAPENTIN FOR THE DENIES ANY CHEST PAIN DENIES ANY PLEURITIC CHEST PAIN DENIES ANY FEVER OR CHILLS. DENIES ANY SYMPTOMS OF TIA OR CVA - Related Data Home Medications Medication Instructions Recorded Confirmed Losartan Potassium [Cozaar] 100 mg PO QAM 03/26/16 06/29/17 Tiotropium 18 Mcg/Puff [Spiriva] 1 cap INHALATION RT-DAILY PRN 03/26/16 06/29/17 Budesonide/Formoterol Fumarate 2 puff INHALATION RT-BID PRN 07/21/16 06/29/17 [Symbicort 160-4.5 Mcg Inhaler] Morphine Sulfate ER [Ms Contin] 30 mg PO TID 03/07/17 06/29/17 Morphine Sulfate Ir [MSIR] 15 mg PO TID PRN 03/07/17 06/29/17 Albuterol Sulfate [Proair Hfa] 2 puff INHALATION RT-Q6H PRN 06/17/17 06/29/17 Gabapentin [Neurontin] 300 mg PO TID 06/17/17 06/29/17 Magnesium 200 mg PO DAILY 06/17/17 06/29/17 Multivitamins, Thera [Multivitamin 1 tab PO DAILY 06/17/17 06/29/17 (formulary)] Victor-3 Fatty Acids/Fish Oil [Fish 1 cap PO DAILY 06/17/17 06/29/17 Oil 1,000 mg Softgel] Pyridoxine [Vitamin B-6] 50 mg PO DAILY 06/17/17 06/29/17 Albuterol Nebulized [Ventolin 2.5 mg INHALATION RT-Q6H 06/29/17 06/29/17 Nebulized] Pravastatin Sodium [Pravachol] 20 mg PO DAILY 06/29/17 06/29/17 Previous Rx's Medication Instructions Recorded Apixaban [Eliquis] 5 mg PO BID #60 tab 06/19/17 Metoprolol Tartrate [Lopressor] 50 mg PO TID #90 tab 06/19/17 ALPRAZolam [Xanax] 0.25 mg PO TID PRN #30 tab 07/03/17 Fluconazole [Diflucan] 100 mg PO DAILY #7 tab 07/03/17 Hydrochlorothiazide [Hydrodiuril] 50 mg PO DAILY tab 07/03/17 Ipratropium-Albuterol Nebulize 3 ml INHALATION RT-Q2H PRN #0 neb 07/03/17 [Duoneb 0.5 mg-3 mg/3 ml Soln] Ipratropium-Albuterol Nebulize 3 ml INHALATION RT-QID #150 neb 07/03/17 [Duoneb 0.5 mg-3 mg/3 ml Soln] Levofloxacin [Levaquin] 750 mg PO DAILY@1400 #5 tab 07/03/17 Potassium Chloride ER [K-Dur 20] 20 meq PO DAILY #30 tab 07/03/17 predniSONE 10 mg PO DIRECTED #30 tab 07/03/17 Allergies Allergy/AdvReac Type Severity Reaction Status Date / Time atorvastatin [From Lipitor] Allergy Swelling Verified 07/09/17 08:38 lisinopril Allergy Cough Verified 07/09/17 08:38 sulfamethoxazole Allergy Swelling Verified 07/09/17 08:38 [From Bactrim] terazosin Allergy Unknown Verified 07/09/17 08:38 trimethoprim [From Bactrim] Allergy Swelling Verified 07/09/17 08:38 Review of Systems ROS Statement: Those systems with pertinent positive or pertinent negative responses have been documented in the HPI. ROS Other: All systems not noted in ROS Statement are negative. Past Medical History Past Medical History: Atrial Fibrillation, Cancer, COPD, Hyperlipidemia, Hypertension, Vascular Disorder Additional Past Medical History / Comment(s): "growth in my lung", PVD, Neuropathy, wound lt great toe and left heel-healed, uses w/c,cane walk short distance with cane History of Any Multi-Drug Resistant Organisms: MRSA Date of last positivie culture/infection: 2012 MDRO Source:: rt ankle wound Past Surgical History: Orthopedic Surgery Additional Past Surgical History / Comment(s): aortic valve replacement, rt ankle surgery with screws and pins, cardioversion,eye surgery at age 15, bronchoscopy at [facility] in [place] Past Anesthesia/Blood Transfusion Reactions: No Reported Reaction Additional Past Anesthesia/Blood Transfusion Reaction / Comment(s): pt states "awakened prior to bronchoscopy being withdrawn." Past Psychological History: No Psychological Hx Reported Smoking Status: Former smoker Past Alcohol Use History: None Reported Past Drug Use History: None Reported - Past Family History Mother Family Medical History: Cancer Additional Family Medical History / Comment(s): lung cancer Father Family Medical History: No Reported History General Exam - General Exam Comments Initial Comments: General: The patient is awake and alert, in mild distress Skin: Skin is warm and dry and no rashes or lesions are noted. Eye: Pupils are equal, round and reactive to light, extra-ocular movements are intact; there is normal conjunctiva bilaterally. Ears, nose, mouth and throat: There are moist mucous membranes and no oral lesions. Neck: The neck is supple, no signs of meningitis Cardiovascular: There is atrial fibrillation with a ventricular rate of from 1: 30 review the time of exam Respiratory: To auscultation bilateral, Gastrointestinal: Soft, non-distended, non-tender abdomen without masses or organomegaly noted. There is no rebound or guarding present. Bowel sounds are unremarkable. Back: There is no tenderness to palpation in the midline. There is no obvious deformity. Musculoskeletal: Normal ROM, no tenderness, There is no pedal edema. There is no calf tenderness or swelling. No cords were appreciated. Neurological: CN II-XII intact, Cranial nerves III through XII are intact. There are no obvious motor or sensory deficits. Coordination appears grossly intact. Speech is normal. Psychiatric: Cooperative, appropriate mood & affect, normal judgment. Limitations: no limitations Course Vital Signs 07/09/17 07/09/17 08:34 09:30 Temperature 97.1 F L Pulse Rate 148 H 134 H Respiratory 22 20 Rate Blood Pressure 130/68 149/68 O2 Sat by Pulse 95 97 Oximetry EKG is atrial fibrillation with the rapid ventricular response ventricular rate is 132 QRS duration is 90 QT/QTc is 272/403 and review of this EKG shows mild ST depression in lead 1 and lead to come unfortunately there are artifacts in this EKG also noticed some ST depression in V5 and V6 Medical Decision Making - Lab Data Result diagrams: 07/09/17 09:00 07/09/17 09:00 Lab Results 07/09/17 07/09/17 07/09/17 Range/Units 09:00 09:00 09:00 WBC 17.8 H (3.8-10.6) k/uL RBC 3.67 L (4.30-5.90) m/uL Hgb 11.2 L (13.0-17.5) gm/dL Hct 34.5 L (39.0-53.0) % MCV 94.1 (80.0-100.0) fL MCH 30.7 (25.0-35.0) pg MCHC 32.6 (31.0-37.0) g/dL RDW 19.0 H (11.5-15.5) % Plt Count 346 (150-450) k/uL Neutrophils % (Manual) 75 % Band Neutrophils % 4 % Lymphocytes % (Manual) 14 % Monocytes % (Manual) 5 % Eosinophils % (Manual) 1 % Metamyelocytes % 2 % Myelocytes % 1 % Neutrophils # (Manual) 14.00 H (1.3-7.7) k/uL Lymphocytes # (Manual) 2.49 (1.0-4.8) k/uL Monocytes # (Manual) 0.89 (0-1.0) k/uL Eosinophils # (Manual) 0.18 (0-0.7) k/uL Metamyelocytes # (Man) 0.36 H (0) k/uL Myelocytes # (Manual) 0.18 H (0) k/uL Nucleated RBCs 0 (0-0) /100 WBC Anisocytosis Slight Macrocytosis Slight PT (9.0-12.0) sec INR (<1.2) APTT (22.0-30.0) sec Sodium 137 (137-145) mmol/L Potassium 3.8 (3.5-5.1) mmol/L Chloride 95 L (98-107) mmol/L Carbon Dioxide 29 (22-30) mmol/L Anion Gap 13 mmol/L BUN 30 H (9-20) mg/dL Creatinine 0.99 (0.66-1.25) mg/dL Est GFR (MDRD) Af Amer >60 (>60 ml/min/1.73 sqM) Est GFR (MDRD) Non-Af >60 (>60 ml/min/1.73 sqM) Glucose 253 H (74-99) mg/dL Calcium 9.3 (8.4-10.2) mg/dL Total Bilirubin 0.4 (0.2-1.3) mg/dL AST 22 (17-59) U/L ALT 32 (21-72) U/L Alkaline Phosphatase 59 (38-126) U/L Total Creatine Kinase 33 L (55-170) U/L CK-MB (CK-2) 1.8 (0.0-2.4) ng/mL CK-MB (CK-2) Rel Index 5.5 Troponin I 0.050 H* (0.000-0.034) ng/mL NT-Pro-B Natriuret Pep pg/mL Total Protein 6.0 L (6.3-8.2) g/dL Albumin 3.4 L (3.5-5.0) g/dL 07/09/17 07/09/17 Range/Units 09:00 09:00 WBC (3.8-10.6) k/uL RBC (4.30-5.90) m/uL Hgb (13.0-17.5) gm/dL Hct (39.0-53.0) % MCV (80.0-100.0) fL MCH (25.0-35.0) pg MCHC (31.0-37.0) g/dL RDW (11.5-15.5) % Plt Count (150-450) k/uL Neutrophils % (Manual) % Band Neutrophils % % Lymphocytes % (Manual) % Monocytes % (Manual) % Eosinophils % (Manual) % Metamyelocytes % % Myelocytes % % Neutrophils # (Manual) (1.3-7.7) k/uL Lymphocytes # (Manual) (1.0-4.8) k/uL Monocytes # (Manual) (0-1.0) k/uL Eosinophils # (Manual) (0-0.7) k/uL Metamyelocytes # (Man) (0) k/uL Myelocytes # (Manual) (0) k/uL Nucleated RBCs (0-0) /100 WBC Anisocytosis Macrocytosis PT 10.0 (9.0-12.0) sec INR 1.0 (<1.2) APTT 20.8 L (22.0-30.0) sec Sodium (137-145) mmol/L Potassium (3.5-5.1) mmol/L Chloride (98-107) mmol/L Carbon Dioxide (22-30) mmol/L Anion Gap mmol/L BUN (9-20) mg/dL Creatinine (0.66-1.25) mg/dL Est GFR (MDRD) Af Amer (>60 ml/min/1.73 sqM) Est GFR (MDRD) Non-Af (>60 ml/min/1.73 sqM) Glucose (74-99) mg/dL Calcium (8.4-10.2) mg/dL Total Bilirubin (0.2-1.3) mg/dL AST (17-59) U/L ALT (21-72) U/L Alkaline Phosphatase (38-126) U/L Total Creatine Kinase (55-170) U/L CK-MB (CK-2) (0.0-2.4) ng/mL CK-MB (CK-2) Rel Index Troponin I (0.000-0.034) ng/mL NT-Pro-B Natriuret Pep 1640 pg/mL Total Protein (6.3-8.2) g/dL Albumin (3.5-5.0) g/dL Critical Care Time Total Critical Care Time: 45 Critical Care Time: Arrival patient's moderate was between 1:30 and 140, Cardizem 10 mg was given and now also started on a Cardizem drip he is already on beta blockers then no reviewed his EKG which confirmed at 10 troponin was elevated as well since he is on aliquots of an orbital put him on any heparin he be admitted to Dr. Mazariegos service was quite severe in his feet (duty x-ray of the both CTU given some morphine and also morphine with abdominal home with his pulmonary congestion as well because his chest x-ray showed some cardiomegaly aneurysm couldn't be gone on some steroids as well as some bronchodilators Disposition Clinical Impression: Atrial fibrillation with RVR, Myocardial infarction, Foot pain Disposition: ADMITTED IP TO THIS HOSP Condition: Good Referrals: Marcus Gottlieb DO [Primary Care Provider] - 1-2 days
[2017-07-09] MEDS ORDERED: FUROSEMIDE 10 MG/ML 4 ML VIAL IV STA (10:41)
[2017-07-09] MEDS ORDERED: NITROGLYCERIN SL TABS 0.4 MG TAB SUBLINGUAL PRN (10:53)
[2017-07-09] MEDS ORDERED: MORPHINE SULFATE 2 MG/ML SYRINGE IV PRN (10:53)
[2017-07-09] MEDS ORDERED: NON-FORMULARY DRUG (Tiotropium 18 Mcg/Puff 1 CAP) INHALATION PRN (10:59)
[2017-07-09] MEDS ORDERED: ALBUTEROL NEBULIZED 2.5 MG/3 ML INHALATION PRN (10:59)
[2017-07-09] MEDS ORDERED: ALPRAZolam 0.25 MG TAB PO PRN (10:59)
[2017-07-09] MEDS: IPRATROPIUM-ALBUTEROL 3 ML NEB INHALATION SCH ×3 (12:09→19:13)
[2017-07-09] MEDS ORDERED: ALBUTEROL NEBULIZED 2.5 MG/3 ML INHALATION SCH (14:00)
[2017-07-09 14:49] LABS: Appearance,Urine Clear (Clear); Bilirubin,Urine Negative (Negative); Glucose,Urine (UA) Negative (Negative); Ketones,Urine Negative (Negative); Leukocyte Esterase,Urine Negative (Negative); Nitrite,Urine Negative (Negative); PH, Urine 6.5 (5.0-8.0); Protein,Urine Negative (Negative); Specific Gravity,Urine 1.007 (1.001-1.035); UA Billing (MACRO vs. MICRO) CHEM; Urobilinogen,Urine <2.0 mg/dL (<2.0)
[2017-07-09] MEDS: MORPHINE SULFATE ER 30 MG TABLET PO SCH ×2 (15:16→23:11)
[2017-07-09] MEDS: METOPROLOL TARTRATE 50 MG TAB PO SCH ×2 (15:16→21:43)
[2017-07-09] MEDS: GABAPENTIN 300 MG CAP PO SCH ×2 (15:16→21:43)
[2017-07-09] MEDS: FUROSEMIDE 20 MG TAB PO SCH (15:16)
[2017-07-09] MEDS: predniSONE 10 MG TAB PO SCH ×2 (15:17→21:43)
[2017-07-09] MEDS: CEPHALEXIN 250 MG CAP PO SCH ×2 (15:18→23:11)
--- NOTE | 2017-07-09 15:50 | HP ---
HISTORY AND PHYSICAL DATE OF SERVICE: 07/09/2017. CHIEF COMPLAINT: Shortness of breath and palpitations. HISTORY OF PRESENT ILLNESS: This 66-year-old gentleman with a past medical history lung cancer and multiple medical problems being followed by Dr. Gottlieb in the outpatient setting recently admitted with COPD acute exacerbation, acute purulent tracheobronchitis. Patient treated symptomatically. Patient improved significantly. Patient discharged on bronchodilators and antibiotics. Currently the patient is complaining of more shortness of breath and the patient also had right ankle swelling also. Dr. Frost is planning to do surgery on Monday. The patient came to [facility] and the patient was found to have atrial fibrillation with fast ventricular rate. Patient was admitted after starting Cardizem. At this time the troponin is 0.04. There is no history of chest pain. No history of headache, loss of consciousness. No history of diarrhea, fever, rigor or chills at this time. PAST MEDICAL HISTORY: History of COPD, history of atrial fibrillation, lung cancer. MEDICATIONS: Prior to admission, home medications are: 1. Prednisone 10 mg t.i.d. 2. Spiriva 1 puff daily p.r.n. 3. Pravachol 20 mg q.6h. 4. K tabs 10 mg p.o. daily. 5. MS IR 50 mg t.i.d. p.r.n. 6. MS Contin 30 mg p.o. daily. 7. Lopressor 50 mg b.i.d. 8. Cozaar 100 mg p.r.n. 9. DuoNeb 3 mL q.i.d. 10.HydroDIURIL 50 mg. 11.Neurontin 300 mg p.o. t.i.d. 12.Lasix 20 mg p.r.n. 13.Keflex 250 mg p.o. q.6h. 14.Eliquis 5 mg p.o. b.i.d. 15.ProAir 2 puffs q.6h p.r.n. ALLERGIES: LIPITOR, LISINOPRIL, BACTRIM, TERAZOSIN, BACTRIM. FAMILY HISTORY: History of lung cancer in the family. SOCIAL HISTORY: Previous history of smoking. No history of alcohol. REVIEW OF SYSTEMS: ENT: No diminished hearing or vision. CARDIOVASCULAR: As mentioned earlier. RESPIRATORY: As mentioned earlier. GI: No nausea. : No dysuria. NERVOUS SYSTEM: No numbness, weakness. ALLERGY/IMMUNOLOGY: No asthma or hayfever. MUSCULOSKELETAL: As mentioned earlier. HEMATOLOGY: As mentioned earlier. ENDOCRINE: No history of diabetes or hypothyroidism. CONSTITUTIONAL: As mentioned earlier. DERMATOLOGY: Negative. RHEUMATOLOGY: Negative. PSYCHIATRY: As mentioned earlier. PHYSICAL EXAMINATION: Alert and oriented x3. Pulse is 108 irregular and tachycardic, blood pressure 124/97, respiration 18, temperature 98.6, pulse ox 96% on 2 L. HEENT: Conjunctivae normal. Oral mucosa moist. Neck is no jugular venous distention. No carotid bruit. No lymph node enlargement. CARDIOVASCULAR: S1, S2 irregular, tachycardic. S4 present. Ejection systolic murmur. RESPIRATORY: Breath sounds diminished in the bases. A few scattered rhonchi and expiratory wheezing also. Chest is emphysematous. ABDOMEN: Soft, nontender. No mass palpable. LEGS: Bilateral leg swelling right more than the left and right leg also an area of ulceration where the extruding nail is bare. Pulses diminished bilaterally. NERVOUS SYSTEM: Higher functions as mentioned. Moves all four limbs. No focal motor deficits. LYMPHATICS: No lymphadenopathy in the neck, axillae or groin. SKIN: No rash, ulcers or bleeding. LAB STUDIES: At this time WBC 17, hemoglobin 11.2, otherwise troponin 0.050. ASSESSMENT: 1. Atrial fibrillation with fast ventricular rate. 2. Troponin 0.050, rule out acute coronary syndrome. 3. Increased WBC. 4. History of recent chronic obstructive pulmonary disease acute exacerbation and acute purulent tracheobronchitis. 5. History of lung cancer. 6. History atrial fibrillation. 7. Hypertension. 8. Chronic obstructive pulmonary disease. RECOMMENDATIONS AND DISCUSSION: In this 66-year-old gentleman who presented with multiple complex medical issues , will monitor the patient closely. Continue the current management and symptomatic treatment and bronchodilators. Otherwise resume the home medications. The patient is already on Eliquis. Continue the Cardizem. Monitor closely and cardiology consultation. A copy of dictation forwarded to Dr. Gottlieb, who is the primary physician. MMODL / IJN: [id number] / MTDD
[2017-07-09 15:52] LABS: Creatine Kinase MB 2.2 ng/mL (0.0-2.4)
[2017-07-09 15:53] LABS: Troponin I 0.044 ng/mL (0.000-0.034)
[2017-07-09 18:25] VITALS: RESP 18
[2017-07-09] MEDS: SYMBICORT 160-4.5 MCG INHALER INHALATION PRN (19:13)
[2017-07-09] MEDS ORDERED: PRAVASTATIN SODIUM 20 MG TAB PO SCH (21:00)
[2017-07-09 21:41] LABS: Creatine Kinase MB 2.2 ng/mL (0.0-2.4); Troponin I 0.033 ng/mL (0.000-0.034)
[2017-07-09] MEDS: MORPHINE SULFATE IR 15 MG TABLET PO PRN (21:42)
[2017-07-09] MEDS: APIXABAN 5 MG TAB PO SCH (21:43)
[2017-07-10] MEDS: MORPHINE SULFATE IR 15 MG TABLET PO PRN ×3 (04:58→20:58)
[2017-07-10] MEDS: CEPHALEXIN 250 MG CAP PO SCH ×4 (04:59→23:16)
[2017-07-10] MEDS: DILTIAZEM 125 MG in SODIUM CHLORIDE 0.9% 100 ML IV SCH (04:59)
[2017-07-10 06:39] LABS: Anisocytosis Slight; Basophils % (A) 0 %; CH 30.9; CHCM 32.2; Eosinophils % (A) 0 %; HCT 31.1 % (39.0-53.0); HDW 2.87; Luc % (Auto) 1; Lymphocytes # (A) 1.4 k/uL (1.0-4.8); Lymphocytes % (A) 10 %; MCH 30.2 pg (25.0-35.0); MCHC 31.2 g/dL (31.0-37.0); MCV 96.7 fL (80.0-100.0); Macrocytosis Slight; Monocytes # (A) 0.8 k/uL (0-1.0); Monocytes % (A) 5 %; Neutrophils # (A) 12.3 k/uL (1.3-7.7); Neutrophils % (A) 83 %; RBC 3.21 m/uL (4.30-5.90); RDW 18.3 % (11.5-15.5); WBC 14.8 k/uL (3.8-10.6); WBC (Perox) 15.88
[2017-07-10 06:47] LABS: HGB 9.7 gm/dL (13.0-17.5)
[2017-07-10 06:50] LABS: Anion Gap 6 mmol/L; Blood Urea Nitrogen 25 mg/dL (9-20); Calcium 8.7 mg/dL (8.4-10.2); Carbon Dioxide 33 mmol/L (22-30); Chloride 97 mmol/L (98-107); Cholesterol 159 mg/dL (<200); Glucose 145 mg/dL (74-99); HDL Cholesterol 46 mg/dL (40-60); Non-African American GFR(MDRD) >60 (>60 ml/min/1.73 sqM); Potassium 3.6 mmol/L (3.5-5.1); Sodium 136 mmol/L (137-145)
[2017-07-10] MEDS: SYMBICORT 160-4.5 MCG INHALER INHALATION PRN ×2 (07:07→20:37)
[2017-07-10] MEDS: IPRATROPIUM-ALBUTEROL 3 ML NEB INHALATION SCH ×4 (07:07→20:37)
[2017-07-10] MEDS: LOSARTAN 50 MG TAB PO SCH (08:05)
[2017-07-10] MEDS: MORPHINE SULFATE ER 30 MG TABLET PO SCH ×3 (08:05→23:16)
[2017-07-10] MEDS: GABAPENTIN 300 MG CAP PO SCH ×3 (08:06→20:58)
[2017-07-10] MEDS: METOPROLOL TARTRATE 50 MG TAB PO SCH ×3 (08:07→20:58)
[2017-07-10] MEDS: POTASSIUM CHLORIDE ER 10 MEQ TAB.ER.PRT PO SCH (08:07)
[2017-07-10] MEDS: predniSONE 10 MG TAB PO SCH ×3 (08:07→20:59)
[2017-07-10] MEDS: APIXABAN 5 MG TAB PO SCH ×2 (08:07→20:57)
[2017-07-10] MEDS: FUROSEMIDE 20 MG TAB PO SCH ×2 (08:07→15:20)
[2017-07-10] MEDS: MAGNESIUM OXIDE 400 MG TAB PO SCH (08:07)
[2017-07-10] MEDS ORDERED: HYDROCHLOROTHIAZIDE 50 MG TAB PO SCH (09:00)
[2017-07-10] MEDS ORDERED: POTASSIUM CHLORIDE ER 10 MEQ TAB.ER.PRT PO SCH (09:00)
[2017-07-10] MEDS ORDERED: NON-FORMULARY DRUG (Omega-3 Fatty Acids/Fish Oil [Fish Oil 1,000 Mg Softgel] 1 CAP) PO SCH (09:00)
[2017-07-10] MEDS ORDERED: FLUCONAZOLE 100 MG TAB PO SCH (09:00)
[2017-07-10] MEDS ORDERED: ASPIRIN 325 MG TAB PO SCH (09:00)
--- NOTE | 2017-07-10 10:16 | P.PN ---
Progress Note - Text This is an addendum to the dictated cardiology consultation. The patient has a known history of aortic valve replacement, atrial fibrillation, severe peripheral vascular disease, history of stage IV lung cancer receiving immunotherapy who presented to the hospital with severe discomfort in the right ankle. He was scheduled to undergo removal of plate from his ankle by Dr. Frost. In the emergency room he was noted to be in atrial fibrillation with RVR but it resolved since. Patient has mild chronic dyspnea but it has been stable since his discharge. He has mild edema in the right lower extremity but has significant discomfort. He has been followed by Dr. Hadley and that regard to his severe PAD. On his physical examination he has decreased air exchange bilaterally, he is in atrial fibrillation with a controlled ventricular response, he has severe decrease in the pulses bilaterally with a small nonhealing ulcer in the right ankle. The finding of A. fib with RVR most likely was secondary to his pain. From the cardiac standpoint he does not appear to be in heart failure at this time. His most recent echocardiogram showed a normal functioning bioprosthetic valve and his MPI in November of this year showed no evidence of inducible ischemia. Patient would require further evaluation regarding his PAD and non-healing ulcer. Thank you for this consult we will follow with you.
--- NOTE | 2017-07-10 10:32 | P.CRDCN ---
History of Present Illness Consult date: 07/10/17 Requesting physician: Venessa Mazariegos Reason for Consult (text): a. fib with RVR, [place] Chief complaint: right foot pain, shortness of breath History of present illness: This is a pleasant 66-year-old gentleman who follows with Dr. Aden in the office. He has a known history of atrial fibrillation, lung CA, COPD, hyperlipidemia, hypertension, PAD for which he sees Dr. Hadley. Presented to the emergency department mostly with complaints of right foot pain also noticed worsening in his shortness of breath. Upon arrival EKG found patient to be in atrial fibrillation with rapid ventricular response. Chest x-ray showed COPD. X-ray of the foot shows no acute osseus lesion with postsurgical change with previous internal fixation of the medial malleolus on the right. Laboratory values show an 25 and creatinine 0.65 with minimal elevation in troponins of 0.050, 0.044 and 0.033. He was started on a Cardizem drip and his rate is much more controlled at this time. On metoprolol 50 mg by mouth 3 times a day. Recent echocardiogram from June shows normal LV systolic function with a normally functioning prosthetic aortic valve. He underwent MPI in November that was negative for ischemia. Upon Examination, patient is resting in bed. He continues to complain of right foot pain at rest, quite significant. He feels his breathing has improved. He denies complaints of chest discomfort, dizziness , lightheadedness, palpitations or syncope. Past Medical History Past Medical History: Atrial Fibrillation, Cancer, COPD, Hyperlipidemia, Hypertension, Vascular Disorder Additional Past Medical History / Comment(s): "growth in my lung", PVD, Neuropathy, wound lt great toe and left heel-healed, uses w/c,cane walk short distance with cane History of Any Multi-Drug Resistant Organisms: MRSA Date of last positivie culture/infection: 2012 MDRO Source:: rt ankle wound Past Surgical History: Orthopedic Surgery Additional Past Surgical History / Comment(s): aortic valve replacement, rt ankle surgery with screws and pins, cardioversion,eye surgery at age 15, bronchoscopy at [facility] in [place] Past Anesthesia/Blood Transfusion Reactions: No Reported Reaction Additional Past Anesthesia/Blood Transfusion Reaction / Comment(s): pt states "awakened prior to bronchoscopy being withdrawn." Past Psychological History: No Psychological Hx Reported Smoking Status: Former smoker Past Alcohol Use History: None Reported Additional Past Alcohol Use History / Comment(s): smoked 53 years 3-5 ppd quit 01-04-16 Past Drug Use History: None Reported - Past Family History Mother Family Medical History: Cancer Additional Family Medical History / Comment(s): lung cancer Father Family Medical History: No Reported History Medications and Allergies Home Medications Medication Instructions Recorded Confirmed Type Losartan Potassium [Cozaar] 100 mg PO QAM 03/26/16 07/09/17 History Tiotropium 18 Mcg/Puff [Spiriva] 1 cap INHALATION RT-DAILY PRN 03/26/16 History Morphine Sulfate ER [Ms Contin] 30 mg PO TID 03/07/17 07/09/17 History Morphine Sulfate Ir [MSIR] 15 mg PO TID PRN 03/07/17 07/09/17 History Albuterol Sulfate [Proair Hfa] 2 puff INHALATION RT-Q6H PRN 06/17/17 07/09/17 History Gabapentin [Neurontin] 300 mg PO TID 06/17/17 07/09/17 History Apixaban [Eliquis] 5 mg PO BID #60 tab 06/19/17 07/09/17 Rx Metoprolol Tartrate [Lopressor] 50 mg PO TID #90 tab 06/19/17 07/09/17 Rx Hydrochlorothiazide [Hydrodiuril] 50 mg PO DAILY tab 07/03/17 07/09/17 Rx Ipratropium-Albuterol Nebulize 3 ml INHALATION RT-QID #150 neb 07/03/17 Rx [Duoneb 0.5 mg-3 mg/3 ml Soln] Cephalexin [Keflex] 250 mg PO Q6HR 07/09/17 07/09/17 History Furosemide [Lasix] 20 mg PO DIRECTED 07/09/17 07/09/17 History Potassium Chloride [K-Tab ER] 10 meq PO DAILY 07/09/17 07/09/17 History Pravastatin Sodium [Pravachol] 20 mg PO HS 07/09/17 07/09/17 History predniSONE 10 mg PO TID 07/09/17 07/09/17 History Allergies Allergy/AdvReac Type Severity Reaction Status Date / Time atorvastatin [From Lipitor] Allergy Swelling Verified 07/09/17 12:24 lisinopril Allergy Cough Verified 07/09/17 12:24 sulfamethoxazole Allergy Swelling Verified 07/09/17 12:24 [From Bactrim] terazosin Allergy Unknown Verified 07/09/17 12:24 trimethoprim [From Bactrim] Allergy Swelling Verified 07/09/17 12:24 Physical Exam Vitals: Vital Signs Temp Pulse Pulse Resp BP BP Pulse Ox 07/10/17 08:00 97.3 F L 94 16 116/58 94 L 07/10/17 07:18 104 H 07/10/17 07:07 98 07/10/17 04:00 97.0 F L 80 18 118/64 98 07/10/17 00:00 97.4 F L 92 18 116/56 96 07/09/17 20:00 97.0 F L 92 18 122/60 97 07/09/17 19:27 112 H 07/09/17 19:13 112 H 07/09/17 16:00 97.1 F L 114 H 18 136/74 97 07/09/17 15:35 110 H 07/09/17 15:22 110 H 07/09/17 12:00 98.5 F 113 H 20 124/58 98 07/09/17 11:28 96.6 F L 108 H 18 124/97 96 07/09/17 10:30 118 H 20 120/59 97 Intake and Output 07/09/17 07/10/17 07/10/17 22:59 06:59 14:59 Intake Total 15 397.083 Balance 15 397.083 Intake: Intake, IV Titration 15 97.083 Amount Diltiazem 125 mg In 15 97.083 Sodium Chloride 0.9% 100 ml @ 5 MG/HR 5 mls/hr IV .Q24H [facility] Rx#:[id number] Oral 300 Other: Voiding Method Toilet Toilet Toilet Urinal Urinal Urinal # Bowel Movements 1 Weight 94 kg PHYSICAL EXAMINATION: HEENT: Head is atraumatic, normocephalic. Pupils equal, round. Neck is supple. There is no elevated jugular venous pressure. HEART EXAMINATION: Heart sounds irregularly irregular, S1 and S2 normal. No murmur or gallop heard. CHEST EXAMINATION: Lungs reveal expiratory wheezing throughout. No chest wall tenderness is noted on palpation or with deep breathing. ABDOMEN: Soft, nontender. Bowel sounds are heard. No organomegaly noted. EXTREMITIES: Severe decrease in bilateral lower extremity pulses pulse with evidence of mild peripheral edema. Small nonhealing ulcer to the right ankle. Complaints of resting for pain. NEUROLOGIC patient is awake, alert and oriented x3. . Results 07/10/17 05:34 07/10/17 05:34 Cardiac Enzymes 07/09/17 07/09/17 Range/Units 14:48 20:38 CK-MB (CK-2) 2.2 2.2 (0.0-2.4) ng/mL Troponin I 0.044 H* 0.033 (0.000-0.034) ng/mL Lipids 07/10/17 Range/Units 05:34 Triglycerides 98 (<150) mg/dL Cholesterol 159 (<200) mg/dL HDL Cholesterol 46 (40-60) mg/dL CBC 07/10/17 Range/Units 05:34 WBC 14.8 H (3.8-10.6) k/uL RBC 3.21 L (4.30-5.90) m/uL Hgb 9.7 L D (13.0-17.5) gm/dL Hct 31.1 L (39.0-53.0) % Plt Count 297 (150-450) k/uL Comprehensive Metabolic Panel 07/10/17 Range/Units 05:34 Sodium 136 L (137-145) mmol/L Potassium 3.6 (3.5-5.1) mmol/L Chloride 97 L (98-107) mmol/L Carbon Dioxide 33 H (22-30) mmol/L BUN 25 H (9-20) mg/dL Creatinine 0.65 L (0.66-1.25) mg/dL Glucose 145 H (74-99) mg/dL Calcium 8.7 (8.4-10.2) mg/dL Current Medications Generic Name Dose Route Start Last Admin Trade Name Freq PRN Reason Stop Dose Admin Albuterol Sulfate 2.5 mg 07/09/17 10:59 Ventolin Nebulized INHALATION RT-Q6H PRN Shortness Of Breath Albuterol/Ipratropium 3 ml 07/09/17 12:00 07/10/17 07:07 Duoneb 0.5 Mg-3 Mg/3 Ml Soln INHALATION 3 ml RT-QID [facility] Administration Alprazolam 0.25 mg 07/09/17 10:59 Xanax PO TID PRN Anxiety Apixaban 5 mg 07/09/17 21:00 07/10/17 08:07 Eliquis PO 5 mg BID [facility] Administration Budesonide/Formoterol Fumarate 2 puff 07/09/17 10:59 07/10/17 07:07 Symbicort 160-4.5 Mcg Inhaler INHALATION 2 puff RT-BID PRN Administration Shortness Of Breath Cephalexin 250 mg 07/09/17 18:00 07/10/17 04:59 Keflex PO 07/17/17 23:00 250 mg Q6HR [facility] Administration Furosemide 20 mg 07/09/17 16:00 07/10/17 08:07 Lasix PO 20 mg BID@0900,1600 [facility] Administration Gabapentin 300 mg 07/09/17 16:00 07/10/17 08:06 Neurontin PO 300 mg TID [facility] Administration Hydrochlorothiazide 25 mg 07/10/17 10:11 Hydrodiuril PO DAILY [facility] Losartan Potassium 100 mg 07/10/17 09:00 07/10/17 08:05 Cozaar PO 100 mg QAM [facility] Administration Magnesium Oxide 400 mg 07/10/17 09:00 07/10/17 08:07 Mag-Ox PO 400 mg DAILY [facility] Administration Metoprolol Tartrate 50 mg 07/09/17 16:00 07/10/17 08:07 Lopressor PO 50 mg TID [facility] Administration Morphine Sulfate 4 mg 07/09/17 10:53 Morphine Sulfate (Inj) IV Q5M PRN Chest Pain Morphine Sulfate 30 mg 07/09/17 16:00 07/10/17 08:05 Ms Contin PO 30 mg TID [facility] Administration Morphine Sulfate 15 mg 07/09/17 10:59 07/10/17 04:58 Msir PO 15 mg TID PRN Administration Pain Multivitamins 1 each 07/10/17 12:00 Theragran PO DAILY@1200 [facility] Nitroglycerin 0.4 mg 07/09/17 10:53 Nitrostat SUBLINGUAL Q5M PRN Chest Pain Potassium Chloride 10 meq 07/10/17 09:00 07/10/17 08:07 K-Dur 10 PO 10 meq DAILY [facility] Administration Potassium Chloride 10 meq 07/10/17 09:00 07/10/17 08:07 K-Dur 10 PO 10 meq DAILY [facility] Administration Pravastatin Sodium 20 mg 07/09/17 21:00 07/09/17 23:11 Pravachol PO 20 mg HS [facility] Administration Pravastatin Sodium 80 mg 07/10/17 21:00 Pravachol PO HS [facility] Prednisone 10 mg 07/09/17 16:00 07/10/17 08:07 PO 10 mg TID [facility] Administration Pyridoxine HCl 50 mg 07/10/17 12:00 Vitamin B-6 PO DAILY@1200 [facility] Intake and Output 07/09/17 07/10/17 07/10/17 22:59 06:59 14:59 Intake Total 15 397.083 Balance 15 397.083 Intake: Intake, IV Titration 15 97.083 Amount Diltiazem 125 mg In 15 97.083 Sodium Chloride 0.9% 100 ml @ 5 MG/HR 5 mls/hr IV .Q24H [facility] Rx#:[id number] Oral 300 Other: Voiding Method Toilet Toilet Toilet Urinal Urinal Urinal # Bowel Movements 1 Weight 94 kg 07/10/17 05:34 07/10/17 05:34 Assessment and Plan Plan: Assessment and plan #1 atrial fibrillation with rapid ventricular response, chronic #2 right foot pain #3 severe PAD #4 hypertension #5 history of aortic valve replacement Senior Software Qa Engineer perspective, we'll stop IV Cardizem, continue metoprolol 50 mg by mouth 3 times a day. We will consult Dr. Hadley for evaluation of PAD with nonhealing ulcer to the right ankle and rest pain. Tachycardia likely secondary to pain. Continue to follow the patient provided further recommendations accordingly. OPTOMETRIST/PRACTICE OWNER note has been reviewed, I agree with a documented findings and plan of care. Patient was seen and examined.
[2017-07-10] MEDS: PYRIDOXINE 50 MG TAB PO SCH (11:20)
[2017-07-10] MEDS: MULTIVITAMINS, THERA 1 EACH TAB PO SCH (11:20)
[2017-07-10 12:12] VITALS: BMI 29.7
--- NOTE | 2017-07-10 12:54 | CONS ---
CONSULTATION This is a 66-year-old gentleman who has been admitted with congestive heart failure with Avis mariscal. Patient has a history of peripheral vascular disease. He had extensive workup at [facility], [place]. According the patient, that includes possible angiogram. He does not remember. Patient also has a history of ankle fracture in the right ankle. For that he is seeing Dr. Grigsby for possible removal of plate and screw from right ankle, according to the patient. MEDICAL HISTORY: Patient has stage IV lung cancer. I was consulted for vascular evaluation. PHYSICAL EXAMINATION: Patient was seen in his room. His neck is supple. No bruit appreciated. Pulses of the femorals are 1+. Posterior tibial is not palpable. Patient has old healed ulcer right heel for infection in the past. He is under care of Dr. Frost for removal of the plate. IMPRESSION: 1. Aortoiliac occlusive disease. 2. Stage IV lung cancer. 3. History of atrial fibrillation with congestive heart failure. At this point, patient had complete workup done at [facility]. I have discussed with the patient we need more information about this gentleman from CT or I gave him the option to follow up at CT at [place]. Patient right now is on treatment for congestive heart failure and for possible removal of the plate from his old fractured right ankle. I have discussed this with reviewed with the patient to get more infarct for information from CT about his vascular evaluation. At this point prognosis guarded on this gentleman. MMSOURAVL / IJN: [id number] /
--- NOTE | 2017-07-10 16:37 | P.PN ---
Subjective Progress Note Date: 07/10/17 Progress note being dictated for Dr. Mazariegos. Interval history: This a 66-year-old gentleman admitted with a medical issues including atrial fibrillation with RVR, elevated troponins, aorto iliac occlusive disease, lung cancer-stage IV and multiple other medical issues. Telemetry atrial fibrillation/flutter, controlled ventricular rate with heart rates ranging from 70s to 90s. Cardizem drip discontinued, and beta moustapha dose increased. IV fluids discontinued. Evaluation by vascular surgery, pending. Scheduled for plate removal with orthopedics on Monday. Diuresing on oral Lasix. Complains of leg pain at rest. Objective - Vital Signs Vital signs: Vital Signs Temp 97.8 F 07/10/17 12:00 Pulse 88 07/10/17 15:40 Resp 18 07/10/17 12:00 BP 111/58 07/10/17 12:00 Pulse Ox 95 07/10/17 15:40 Intake & Output 07/09/17 07/10/17 07/10/17 18:59 06:59 18:59 Intake Total 412.083 Output Total 400 700 Balance -400 412.083 -700 Weight 90.718 kg 94 kg 94 kg Intake: Intake, IV Titration 112.083 Amount Diltiazem 125 mg In 112.083 Sodium Chloride 0.9% 100 ml @ 5 MG/HR 5 mls/hr IV .Q24H [facility] Rx#:[id number] Oral 300 Output: Urine 400 700 Other: Voiding Method Toilet Urinal Urinal # Voids 1 # Bowel Movements 1 - Exam PHYSICAL EXAM: VITAL SIGNS: [As above] GENERAL: Sitting up in bed, no acute distress HEENT: Conjunctivae normal. eyes normal. Oral mucosa moist NECK: No JVD. No thyroid enlargement. No LNs CARDIOVASCULAR: S1, S2 muffled. Irregular, mild tachycardia, No murmur RESPIRATION: Breath sounds diminished in the bases. Expiratory wheezing throughout ,No rhonchi or crackles. ABDOMEN: Soft, nontender . No guarding. no masses palpable.Bowel sounds heard. LEGS: No edema. no swelling PSYCHIATRY: Alert and oriented -3, mood and affect normal. NERVOUS SYSTEM: Cranial N 2-12 grossly normal. Moves all 4 limbs. Diffuse weakness No focal deficits. No sensory deficit. Skin: Right ankle ulceration, without drainage, diminished femoral pulses, 1+. chronic occlusion as per discussion with Dr. Hadley. Joints: No active swelling. No inflammation. - Labs CBC & Chem 7: 07/10/17 05:34 07/10/17 05:34 Labs: Abnormal Lab Results - Last 24 Hours (Table) 07/09/17 07/10/17 07/10/17 Range/Units 20:38 05:34 05:34 WBC 14.8 H (3.8-10.6) k/uL RBC 3.21 L (4.30-5.90) m/uL Hgb 9.7 L D (13.0-17.5) gm/dL Hct 31.1 L (39.0-53.0) % RDW 18.3 H (11.5-15.5) % Neutrophils # 12.3 H (1.3-7.7) k/uL Sodium 136 L (137-145) mmol/L Chloride 97 L (98-107) mmol/L Carbon Dioxide 33 H (22-30) mmol/L BUN 25 H (9-20) mg/dL Creatinine 0.65 L (0.66-1.25) mg/dL Glucose 145 H (74-99) mg/dL Total Creatine Kinase 29 L (55-170) U/L Microbiology - Last 24 Hours (Table) 07/09/17 14:30 Urine Culture - Preliminary Urine,Clean Catch Assessment and Plan Plan: 1. [ Chronic persistent Atrial fibrillation with RVR]. 2. [ Troponin 0.05, rule out acute coronary syndrome]. 3. [ Aortoiliac occlusive disease, severe PAD]. 4. [ Stage IV lung cancer, recent chemotherapy prior to admission]. 5. [ Recent COPD exacerbation with acute purulent tracheobronchitis]. 6. Hypertension 7. Aortic valve replacement Plan: Continue on current medication regime , nebulized bronchodilators, Eliquis , beta moustapha, monitoring and symptomatic treatment. Vascular evaluation in progress. Patient had extensive vascular workup at [facility], records being obtained. May require transfer to tertiary center, given complexity. Prognosis guarded. Further recommendations to follow. The impression and plan of care has been dictated as directed as a scribe. : I performed a H&P examination of this patient and discussed the same with the dictator. I agree with the dictator's note. Any additional findings/opinions/ etc. will be noted.
[2017-07-10] MEDS ORDERED: PRAVASTATIN SODIUM 20 MG TAB PO SCH (21:00)
[2017-07-10] MEDS ORDERED: PRAVASTATIN SODIUM 80 MG TAB PO SCH (21:00)
[2017-07-11] MEDS: MORPHINE SULFATE IR 15 MG TABLET PO PRN ×2 (06:08→13:20)
[2017-07-11] MEDS: CEPHALEXIN 250 MG CAP PO SCH ×2 (06:08→11:25)
[2017-07-11 06:15] LABS: Anisocytosis Slight; Basophils # (A) 0.1 k/uL (0-0.2); Basophils % (A) 0 %; CH 31.5; CHCM 33.7; Eosinophils % (A) 0 %; HCT 30.5 % (39.0-53.0); HDW 2.96; HGB 9.9 gm/dL (13.0-17.5); Luc # (Auto) 0.18; Luc % (Auto) 1; Lymphocytes % (A) 12 %; MCH 30.7 pg (25.0-35.0); MCHC 32.6 g/dL (31.0-37.0); Macrocytosis Slight; Mean Platelet Volume 7.1; Monocytes # (A) 1.1 k/uL (0-1.0); Monocytes % (A) 6 %; Neutrophils # (A) 14.1 k/uL (1.3-7.7); Neutrophils % (A) 81 %; RBC 3.24 m/uL (4.30-5.90); RDW 18.8 % (11.5-15.5); WBC 17.5 k/uL (3.8-10.6); WBC (Perox) 18.64
[2017-07-11 06:29] LABS: Anion Gap 9 mmol/L; Blood Urea Nitrogen 20 mg/dL (9-20); Calcium 8.8 mg/dL (8.4-10.2); Carbon Dioxide 30 mmol/L (22-30); Chloride 95 mmol/L (98-107); Glucose 155 mg/dL (74-99); Non-African American GFR(MDRD) >60 (>60 ml/min/1.73 sqM); Potassium 3.7 mmol/L (3.5-5.1); Sodium 134 mmol/L (137-145)
[2017-07-11] MEDS: MAGNESIUM OXIDE 400 MG TAB PO SCH (08:33)
[2017-07-11] MEDS: LOSARTAN 50 MG TAB PO SCH (08:33)
[2017-07-11] MEDS: MORPHINE SULFATE ER 30 MG TABLET PO SCH ×2 (08:33→15:29)
[2017-07-11] MEDS: predniSONE 10 MG TAB PO SCH ×2 (08:34→15:29)
[2017-07-11] MEDS: GABAPENTIN 300 MG CAP PO SCH ×2 (08:34→15:28)
[2017-07-11] MEDS: POTASSIUM CHLORIDE ER 10 MEQ TAB.ER.PRT PO SCH (08:34)
[2017-07-11] MEDS: APIXABAN 5 MG TAB PO SCH (08:34)
[2017-07-11] MEDS: METOPROLOL TARTRATE 50 MG TAB PO SCH ×2 (08:34→15:28)
[2017-07-11] MEDS: FUROSEMIDE 20 MG TAB PO SCH ×2 (08:34→15:28)
[2017-07-11] MEDS: SYMBICORT 160-4.5 MCG INHALER INHALATION PRN (08:43)
[2017-07-11] MEDS: IPRATROPIUM-ALBUTEROL 3 ML NEB INHALATION SCH ×3 (08:43→16:04)
[2017-07-11] MEDS ORDERED: HYDROCHLOROTHIAZIDE 25 MG TAB PO SCH (09:00)
--- NOTE | 2017-07-11 10:00 | P.CNOR ---
History of Present Illness - HPI Consult date: 07/11/17 Consult reason: other (Right ankle irritating hardware) History of present illness: The patient is a 66-year-old male who originally presented to our office in June due to right ankle pain. He is status post ORIF of the right distal tibia about [address] Voss. He was found to have irritating metal and an open wound over a screw site and the medial aspect of the ankle. He was prescribed Keflex and was scheduled for hardware removal at our surgery Center on 07/05/2017 but the procedure was canceled due to the patient being in the hospital shortly before the procedure. The patient states that he presented to [facility] on 07/09/2017 due to increased swelling and his bilateral feet and ankles. The patient is currently being treated for A. fib with RVR. Orthopedics was consulted for further evaluation of his right ankle. Today, the patient states that his ankle is painful. He denies fever, chills, rigors, shortness breath, chest pain, nausea, vomiting, and abdominal pain. Review of Systems Constitutional: Reports as per HPI, Denies chills, Denies fever Cardiovascular: Reports as per HPI Respiratory: Reports as per HPI Gastrointestinal: Reports as per HPI Musculoskeletal: right: ankle pain, ankle swelling Past Medical History Past Medical History: Atrial Fibrillation, Cancer, COPD, Hyperlipidemia, Hypertension, Vascular Disorder Additional Past Medical History / Comment(s): "growth in my lung", PVD, Neuropathy, wound lt great toe and left heel-healed, uses w/c,cane walk short distance with cane History of Any Multi-Drug Resistant Organisms: MRSA Year Discovered:: 2012 MDRO Source:: rt ankle wound Past Surgical History: Orthopedic Surgery Additional Past Surgical History / Comment(s): aortic valve replacement, rt ankle surgery with screws and pins, cardioversion,eye surgery at age 15, bronchoscopy at [facility] in [place] Past Anesthesia/Blood Transfusion Reactions: No Reported Reaction Additional Past Anesthesia/Blood Transfusion Reaction / Comm: pt states "awakened prior to bronchoscopy being withdrawn." Past Psychological History: No Psychological Hx Reported Smoking Status: Former smoker Past Alcohol Use History: None Reported Additional Past Alcohol Use History / Comment(s): smoked 53 years 3-5 ppd quit 01-04-16 Past Drug Use History: None Reported - Past Family History Mother Family Medical History: Cancer Additional Family Medical History / Comment(s): lung cancer Father Family Medical History: No Reported History Medications and Allergies Home Medications Medication Instructions Recorded Confirmed Type Losartan Potassium [Cozaar] 100 mg PO QAM 03/26/16 07/09/17 History Tiotropium 18 Mcg/Puff [Spiriva] 1 cap INHALATION RT-DAILY PRN 03/26/16 History Morphine Sulfate ER [Ms Contin] 30 mg PO TID 03/07/17 07/09/17 History Morphine Sulfate Ir [MSIR] 15 mg PO TID PRN 03/07/17 07/09/17 History Albuterol Sulfate [Proair Hfa] 2 puff INHALATION RT-Q6H PRN 06/17/17 07/09/17 History Gabapentin [Neurontin] 300 mg PO TID 06/17/17 07/09/17 History Apixaban [Eliquis] 5 mg PO BID #60 tab 06/19/17 07/09/17 Rx Metoprolol Tartrate [Lopressor] 50 mg PO TID #90 tab 06/19/17 07/09/17 Rx Hydrochlorothiazide [Hydrodiuril] 50 mg PO DAILY tab 07/03/17 07/09/17 Rx Ipratropium-Albuterol Nebulize 3 ml INHALATION RT-QID #150 neb 07/03/17 Rx [Duoneb 0.5 mg-3 mg/3 ml Soln] Cephalexin [Keflex] 250 mg PO Q6HR 07/09/17 07/09/17 History Furosemide [Lasix] 20 mg PO DIRECTED 07/09/17 07/09/17 History Potassium Chloride [K-Tab ER] 10 meq PO DAILY 07/09/17 07/09/17 History Pravastatin Sodium [Pravachol] 20 mg PO HS 07/09/17 07/09/17 History predniSONE 10 mg PO TID 07/09/17 07/09/17 History Allergies Allergy/AdvReac Type Severity Reaction Status Date / Time atorvastatin [From Lipitor] Allergy Swelling Verified 07/09/17 12:24 lisinopril Allergy Cough Verified 07/09/17 12:24 sulfamethoxazole Allergy Swelling Verified 07/09/17 12:24 [From Bactrim] terazosin Allergy Unknown Verified 07/09/17 12:24 trimethoprim [From Bactrim] Allergy Swelling Verified 07/09/17 12:24 Physical Examination The patient is alert and oriented 3. He is in no acute distress. There is a obvious open wound to the medial aspect of the right ankle. Screw head is visible. There is no drainage. There are chronic wounds to multiple toes on his bilateral feet. He has limited range of motion of the ankle. Swelling is noted. Achilles tendon is intact and nontender throughout its length with no palpable deformity. Calf is soft and nontender. Negative Homans. Circulatory status is intact. Neurological status is intact. Results - Labs Labs: Abnormal Lab Results - Last 24 Hours (Table) 07/11/17 07/11/17 Range/Units 05:30 05:30 WBC 17.5 H (3.8-10.6) k/uL RBC 3.24 L (4.30-5.90) m/uL Hgb 9.9 L (13.0-17.5) gm/dL Hct 30.5 L (39.0-53.0) % RDW 18.8 H (11.5-15.5) % Neutrophils # 14.1 H (1.3-7.7) k/uL Monocytes # 1.1 H (0-1.0) k/uL Sodium 134 L (137-145) mmol/L Chloride 95 L (98-107) mmol/L Creatinine 0.60 L (0.66-1.25) mg/dL Glucose 155 H (74-99) mg/dL Microbiology - Last 24 Hours (Table) 07/09/17 14:30 Urine Culture - Final Urine,Clean Catch H & H 07/09/17 07/10/17 07/11/17 Range/Units 09:00 05:34 05:30 Hgb 11.2 L 9.7 L D 9.9 L (13.0-17.5) gm/dL Hct 34.5 L 31.1 L 30.5 L (39.0-53.0) % Coagulation 07/09/17 Range/Units 09:00 INR 1.0 (<1.2) Result Diagrams: 07/11/17 05:30 07/11/17 05:30 - Diagnostic results Ankle/Foot x-ray: other (X-rays obtained in our office on 06/14/2017 show a old distal tibia fracture with 3 anchoring screws.) Assessment and Plan (1) Pain due to internal orthopedic prosthetic devices, implants and grafts, initial encounter Status: Acute (2) Pain, ankle Status: Acute Plan: The clinical findings were discussed with the patient. The case was also discussed with Dr. Frost. No obvious signs or symptoms of infection to the right ankle is present at this time. No acute surgical intervention is warranted at this time. Daily dressing changes are recommended to the right ankle to keep wound covered. The patient will follow-up with Dr. Frost in the office approximately 1 week after discharge to schedule hardware removal once cleared medically. The patient is orthopedically stable for discharge. We will sign off at this time.
[2017-07-11] MEDS: MULTIVITAMINS, THERA 1 EACH TAB PO SCH (11:25)
[2017-07-11] MEDS: PYRIDOXINE 50 MG TAB PO SCH (11:25)
[2017-07-11 15:07] VITALS: BP 120/70; PULSE 102; TEMP 97
--- NOTE | 2017-07-11 15:19 | P.DS ---
Providers Date of admission: 07/09/17 10:59 Attending physician: Venessa Mazariegos Consults: 07/09/17 10:53 Consult Physician Urgent Consulting Provider: Merrill Jalloh Consult Reason/Comments: A. fib with RVR and myocardial infarction Do you want consulting provider notified?: Yes 07/10/17 10:17 Consult Physician Routine Consulting Provider: Janes Hadley Consult Reason/Comments: PAD Do you want consulting provider notified?: Yes 07/10/17 13:33 Consult Physician Urgent Consulting Provider: Nain Frost Consult Reason/Comments: known to pt, right ankle Do you want consulting provider notified?: Yes [facility] Course: Final Diagnoses: 1. [ Chronic persistent Atrial fibrillation with RVR]. 2. [ Troponin 0.05, rule out acute coronary syndrome]. 3. [ Aortoiliac occlusive disease, severe PAD]. 4. [ Stage IV lung cancer, recent chemotherapy prior to admission]. 5. [ Recent COPD exacerbation with acute purulent tracheobronchitis]. 6. Hypertension 7. Aortic valve replacement Hospital Course: This a 66-year-old gentleman admitted with a medical issues including atrial fibrillation with RVR, elevated troponins, aorto iliac occlusive disease, lung cancer-stage IV and multiple other medical issues. Telemetry atrial fibrillation/flutter, controlled ventricular rate with heart rates ranging from 70s to 90s.Evaluated by Cardiology. Initially maintained on Cardizem drip. Now Afib with CVR on beta moustapha dose. Evaluation by vascular surgery, who discussed in depth with both patient and daughter recommendations. Before vascular surgical intervention , will discuss further with Dr. Grady- Oncology.Evaluated by Orthopedics, plate removal post-poned. Cleared by all consults for discharge.Patient is being discharged home in a stable condition with a guarded prognosis. The impression and plan of care has been dictated as directed as a scribe. : I performed a H&P examination of this patient and discussed the same with the dictator. I agree with the dictator's note. Any additional findings/opinions/ etc. will be noted. Patient Condition at Discharge: Stable Plan - Discharge Summary New Discharge Prescriptions: New Furosemide [Lasix] 20 mg PO BID@0900,1600 #60 tab Magnesium Oxide [Mag-Ox] 400 mg PO DAILY #30 tab Multivitamins, Thera [Multivitamin (formulary)] 1 each PO DAILY@1200 tab Pravastatin Sodium [Pravachol] 80 mg PO HS #30 tab Pyridoxine [Vitamin B-6] 50 mg PO DAILY@1200 tab Continue Tiotropium 18 Mcg/Puff [Spiriva] 1 cap INHALATION RT-DAILY PRN PRN Reason: sob Losartan Potassium [Cozaar] 100 mg PO QAM Morphine Sulfate Ir [MSIR] 15 mg PO TID PRN PRN Reason: Pain Morphine Sulfate ER [Ms Contin] 30 mg PO TID Gabapentin [Neurontin] 300 mg PO TID Albuterol Sulfate [Proair Hfa] 2 puff INHALATION RT-Q6H PRN PRN Reason: Shortness Of Breath Apixaban [Eliquis] 5 mg PO BID #60 tab Metoprolol Tartrate [Lopressor] 50 mg PO TID #90 tab Ipratropium-Albuterol Nebulize [Duoneb 0.5 mg-3 mg/3 ml Soln] 3 ml INHALATION RT-QID #150 neb predniSONE 10 mg PO TID Potassium Chloride [K-Tab ER] 10 meq PO DAILY Pravastatin Sodium [Pravachol] 20 mg PO HS Cephalexin [Keflex] 250 mg PO Q6HR #0 Discontinued Hydrochlorothiazide [Hydrodiuril] 50 mg PO DAILY tab Furosemide [Lasix] 20 mg PO DIRECTED Discharge Medication List Losartan Potassium [Cozaar] 100 mg PO QAM 03/26/16 [History] Tiotropium 18 Mcg/Puff [Spiriva] 1 cap INHALATION RT-DAILY PRN 03/26/16 [History ] Morphine Sulfate ER [Ms Contin] 30 mg PO TID 03/07/17 [History] Morphine Sulfate Ir [MSIR] 15 mg PO TID PRN 03/07/17 [History] Albuterol Sulfate [Proair Hfa] 2 puff INHALATION RT-Q6H PRN 06/17/17 [History] Gabapentin [Neurontin] 300 mg PO TID 06/17/17 [History] Apixaban [Eliquis] 5 mg PO BID #60 tab 06/19/17 [Rx] Metoprolol Tartrate [Lopressor] 50 mg PO TID #90 tab 06/19/17 [Rx] Ipratropium-Albuterol Nebulize [Duoneb 0.5 mg-3 mg/3 ml Soln] 3 ml INHALATION RT -QID #150 neb 07/03/17 [Rx] Potassium Chloride [K-Tab ER] 10 meq PO DAILY 07/09/17 [History] Pravastatin Sodium [Pravachol] 20 mg PO HS 07/09/17 [History] predniSONE 10 mg PO TID 07/09/17 [History] Cephalexin [Keflex] 250 mg PO Q6HR #0 07/11/17 [Rx] Furosemide [Lasix] 20 mg PO BID@0900,1600 #60 tab 07/11/17 [Rx] Magnesium Oxide [Mag-Ox] 400 mg PO DAILY #30 tab 07/11/17 [Rx] Multivitamins, Thera [Multivitamin (formulary)] 1 each PO DAILY@1200 tab [Rx] Pravastatin Sodium [Pravachol] 80 mg PO HS #30 tab 07/11/17 [Rx] Pyridoxine [Vitamin B-6] 50 mg PO DAILY@1200 tab 07/11/17 [Rx] Follow up Appointment(s)/Referral(s): Nain Frost DO [Doctor of Osteopathic Medicine] - 1 Week Marcus Gottlieb DO [Primary Care Provider] - 3 Days Activity/Diet/Wound Care/Special Instructions: Confirm Cardiology F/U APt. prior to dc. Keep ankle wound covered with gauze. Change daily and as needed.
--- NOTE | 2017-07-11 15:25 | P.PN ---
Subjective Progress Note Date: 07/11/17 Principal diagnosis: A. fib with RVR This is a pleasant 66-year-old gentleman who follows with Dr. Aden in the office. He has a known history of atrial fibrillation, lung CA, COPD, hyperlipidemia, hypertension, PAD for which he sees Dr. Hadley. Presented to the emergency department mostly with complaints of right foot pain also noticed worsening in his shortness of breath. Upon arrival EKG found patient to be in atrial fibrillation with rapid ventricular response. Chest x-ray showed COPD. X-ray of the foot shows no acute osseus lesion with postsurgical change with previous internal fixation of the medial malleolus on the right. Laboratory values show an 25 and creatinine 0.65 with minimal elevation in troponins of 0.050, 0.044 and 0.033. He was started on a Cardizem drip and his rate is much more controlled at this time. On metoprolol 50 mg by mouth 3 times a day. Recent echocardiogram from June shows normal LV systolic function with a normally functioning prosthetic aortic valve. He underwent MPI in November that was negative for ischemia. Upon Examination, patient is resting in bed. He continues to complain of right foot pain at rest, quite significant. He feels his breathing has improved. He denies complaints of chest discomfort, dizziness , lightheadedness, palpitations or syncope. Patient has been seen in consultation by Dr. Hadley. On rounds today with management the patient that he will also be referred to Dr. Steinberg as an outpatient. Objective - Vital Signs Vital signs: Vital Signs Temp 97 F L 07/11/17 15:04 Pulse 102 H 07/11/17 15:04 Resp 18 07/11/17 15:07 BP 120/70 07/11/17 15:04 Pulse Ox 95 07/11/17 15:04 Intake & Output 07/10/17 07/11/17 07/11/17 18:59 06:59 18:59 Intake Total 480 Output Total 700 1350 1100 Balance -700 -1350 -620 Weight 94 kg 89.5 kg Intake: Oral 480 Output: Urine 700 1350 1100 Other: Voiding Method Urinal Urinal # Voids 1 # Bowel Movements 1 0 - Exam PHYSICAL EXAMINATION: HEENT: Head is atraumatic, normocephalic. Pupils equal, round. Neck is supple. There is no elevated jugular venous pressure. HEART EXAMINATION: Heart sounds irregularly irregular, S1 and S2 normal. No murmur or gallop heard. CHEST EXAMINATION: Lungs reveal expiratory wheezing throughout. No chest wall tenderness is noted on palpation or with deep breathing. ABDOMEN: Soft, nontender. Bowel sounds are heard. No organomegaly noted. EXTREMITIES: Severe decrease in bilateral lower extremity pulses pulse with evidence of mild peripheral edema. Small nonhealing ulcer to the right ankle at site of prior pin placement. Complaints of resting for pain. NEUROLOGIC patient is awake, alert and oriented x3. . - Labs CBC & Chem 7: 07/11/17 05:30 07/11/17 05:30 Labs: Abnormal Lab Results - Last 24 Hours (Table) 07/11/17 07/11/17 Range/Units 05:30 05:30 WBC 17.5 H (3.8-10.6) k/uL RBC 3.24 L (4.30-5.90) m/uL Hgb 9.9 L (13.0-17.5) gm/dL Hct 30.5 L (39.0-53.0) % RDW 18.8 H (11.5-15.5) % Neutrophils # 14.1 H (1.3-7.7) k/uL Monocytes # 1.1 H (0-1.0) k/uL Sodium 134 L (137-145) mmol/L Chloride 95 L (98-107) mmol/L Creatinine 0.60 L (0.66-1.25) mg/dL Glucose 155 H (74-99) mg/dL Microbiology - Last 24 Hours (Table) 07/09/17 14:30 Urine Culture - Final Urine,Clean Catch Assessment and Plan Plan: Assessment and Plan Plan: Assessment and plan #1 atrial fibrillation with rapid ventricular response, chronic #2 right foot pain #3 severe PAD #4 hypertension #5 history of aortic valve replacement Cardiology's perspective, patient may be able to be discharged home today. We will make him a follow-up appointment to see Dr. 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 DNP note has been reviewed, I agree with a documented findings and plan of care. Patient was seen and examined.
== END 2017-07-11 17:03 | disposition home health service (06) | DRG 309 ==
LOC: EC 08:31 → 6SEL 10:59
PROVIDERS: ADMIT Hospitalist; ATTEND Hospitalist
DX: I48.1 Persistent atrial fibrillation (principal); L97.319 Non-pressure chronic ulcer of right ankle with unspecified severity; C34.90 Malignant neoplasm of unspecified part of unspecified bronchus or lung; T84.84XA Pain due to internal orthopedic prosthetic devices, implants and grafts, initial encounter; I11.0 Hypertensive heart disease with heart failure; I50.9 Heart failure, unspecified; G62.9 Polyneuropathy, unspecified; Z95.2 Presence of prosthetic heart valve; J44.9 Chronic obstructive pulmonary disease, unspecified; L97.419 Non-pressure chronic ulcer of right heel and midfoot with unspecified severity; I70.0 Atherosclerosis of aorta; I48.92 Unspecified atrial flutter; E78.5 Hyperlipidemia, unspecified; I73.9 Peripheral vascular disease, unspecified; Z79.01 Long term (current) use of anticoagulants; Z79.51 Long term (current) use of inhaled steroids; Z79.52 Long term (current) use of systemic steroids; Z79.891 Long term (current) use of opiate analgesic; Z79.899 Other long term (current) drug therapy; Z87.891 Personal history of nicotine dependence; Z92.21 Personal history of antineoplastic chemotherapy; Z88.2 Allergy status to sulfonamides; Z88.8 Allergy status to other drugs, medicaments and biological substances; Y83.1 Surgical operation with implant of artificial internal device as the cause of abnormal reaction of the patient, or of later complication, without mention of misadventure at the time of the procedure
CPT/HCPCS: 36415; 71020; 80048; 80053; 80061; 81003; 82550; 82553; 83880; 84443; 84484; 85025; 85610; 85730; 87086; 93005; 94640; 94760; 96365; 96366; 96368; 96375; 96376; 99291

== ENCOUNTER 2017-08-06 10:41 | Inpatient (IN) | payer OTHER ==
[2017-08-06] MEDS ORDERED: DILTIAZEM 125 MG in SODIUM CHLORIDE 0.9% 100 ML IV ONE (11:28)
[2017-08-06] MEDS ORDERED: DILTIAZEM 5 MG/ML 5 ML VIAL IVP STA (11:28)
--- NOTE | 2017-08-06 11:31 | ED ---
General Adult HPI - General Chief complaint: Shortness of Breath Stated complaint: A-Fib Time Seen by Provider: 08/06/17 11:17 Source: patient, RN notes reviewed Mode of arrival: wheelchair Limitations: no limitations - History of Present Illness Initial comments: Patient is a pleasant [age]-year-old male presenting to the emergency department with concerns for atrial fibrillation. Patient started having symptoms last night. Patient has had similar symptoms several times previously associated with atrial fibrillation. Patient becomes diaphoretic and short of breath. Patient did not sleep well last night. Patient has continued symptoms. Patient does not feel palpitations however never normally does. No chest pain. Patient is on eliquis - Related Data Home Medications Medication Instructions Recorded Confirmed Losartan Potassium [Cozaar] 100 mg PO QAM 03/26/16 08/06/17 Tiotropium 18 Mcg/Puff [Spiriva] 1 cap INHALATION RT-DAILY PRN 03/26/16 08/06/17 Albuterol Sulfate [Proair Hfa] 2 puff INHALATION RT-Q6H PRN 06/17/17 08/06/17 Potassium Chloride [K-Tab ER] 10 meq PO DAILY 07/09/17 08/06/17 Furosemide [Lasix] 20 mg PO BID 08/06/17 08/06/17 Gabapentin [Neurontin] 400 mg PO TID 08/06/17 08/06/17 Multivitamins, Thera [Multivitamin 1 tab PO DAILY 08/06/17 08/06/17 (formulary)] Nortriptyline HCl [Pamelor] 25 mg PO DAILY 08/06/17 08/06/17 Pyridoxine [Vitamin B-6] 50 mg PO DAILY 08/06/17 08/06/17 busPIRone HCL 5 mg PO BID 08/06/17 08/06/17 oxyCODONE HCL 30 mg PO TID PRN 08/06/17 08/06/17 Previous Rx's Medication Instructions Recorded Apixaban [Eliquis] 5 mg PO BID #60 tab 06/19/17 Metoprolol Tartrate [Lopressor] 50 mg PO TID #90 tab 06/19/17 Ipratropium-Albuterol Nebulize 3 ml INHALATION RT-QID #150 neb 07/03/17 [Duoneb 0.5 mg-3 mg/3 ml Soln] Magnesium Oxide [Mag-Ox] 400 mg PO DAILY #30 tab 07/11/17 Pravastatin Sodium [Pravachol] 80 mg PO HS #30 tab 07/11/17 Allergies Allergy/AdvReac Type Severity Reaction Status Date / Time atorvastatin [From Lipitor] Allergy Swelling Verified 08/06/17 12:33 lisinopril Allergy Cough Verified 08/06/17 12:33 sulfamethoxazole Allergy Swelling Verified 08/06/17 12:33 [From Bactrim] terazosin Allergy Unknown Verified 08/06/17 12:33 trimethoprim [From Bactrim] Allergy Swelling Verified 08/06/17 12:33 Review of Systems ROS Statement: Those systems with pertinent positive or pertinent negative responses have been documented in the HPI. ROS Other: All systems not noted in ROS Statement are negative. Constitutional: Denies: fever, chills Eyes: Denies: eye pain ENT: Denies: ear pain Respiratory: Reports: dyspnea. Denies: cough Cardiovascular: Denies: chest pain, palpitations Endocrine: Reports: fatigue (Patient did not sleep at all last night) Gastrointestinal: Denies: abdominal pain Genitourinary: Denies: dysuria Skin: Denies: rash Neurological: Denies: weakness Past Medical History Past Medical History: Atrial Fibrillation, Cancer, COPD, Hyperlipidemia, Hypertension, Vascular Disorder Additional Past Medical History / Comment(s): "growth in my lung", PVD, Neuropathy, wound lt great toe and left heel-healed, uses w/c,cane walk short distance with cane History of Any Multi-Drug Resistant Organisms: MRSA Date of last positivie culture/infection: 2012 MDRO Source:: rt ankle wound Past Surgical History: Orthopedic Surgery Additional Past Surgical History / Comment(s): aortic valve replacement, rt ankle surgery with screws and pins, cardioversion,eye surgery at age 15, bronchoscopy at [facility] in [place] Past Anesthesia/Blood Transfusion Reactions: No Reported Reaction Additional Past Anesthesia/Blood Transfusion Reaction / Comment(s): pt states "awakened prior to bronchoscopy being withdrawn." Past Psychological History: No Psychological Hx Reported Smoking Status: Former smoker Past Alcohol Use History: None Reported Past Drug Use History: None Reported - Past Family History Mother Family Medical History: Cancer Additional Family Medical History / Comment(s): lung cancer Father Family Medical History: No Reported History General Exam Limitations: no limitations General appearance: alert Head exam: Present: atraumatic Eye exam: Present: normal appearance, PERRL ENT exam: Present: normal oropharynx Neck exam: Present: normal inspection Respiratory exam: Present: normal lung sounds bilaterally Cardiovascular Exam: Present: tachycardia, irregular rhythm Expanded Peripheral pulses: 2+: Radial (R), Radial (L), Dorsalis Pedis (R), Dorsalis Pedis (L) GI/Abdominal exam: Present: soft. Absent: tenderness Extremities exam: Present: normal inspection. Absent: pedal edema, calf tenderness Neurological exam: Present: alert Psychiatric exam: Present: normal affect, normal mood Skin exam: Present: diaphoretic Course Vital Signs 08/06/17 08/06/17 08/06/17 11:00 12:05 12:49 Temperature 98.3 F Pulse Rate 146 H 155 H 123 H Respiratory 22 18 18 Rate Blood Pressure 119/79 118/69 164/70 O2 Sat by Pulse 97 97 95 Oximetry - Reevaluation(s) Reevaluation #1: 08/06/17 13:04 Patient does meet sepsis criteria diagnosed at 1304. Blood cultures and lactic acid and antibiotics will be ordered. EKG Findings - EKG Comments: EKG Findings:: A. fib with RVR, rate 135. QRS 100. QT 328. QTC 492. Normal axis. Incomplete right bundle-branch block. Nonspecific ST-T. Medical Decision Making - Medical Decision Making Patient reexamined and slightly improved. Heart rate 120. Atrial fibrillation remains. Patient updated on results and plan. Case was also discussed in detail with Dr. Pierce, covering for Dr. tyson, who will admit for Dr. tirado - Lab Data Result diagrams: 08/06/17 11:18 08/06/17 11:18 Lab Results 08/06/17 08/06/17 08/06/17 Range/Units 11:18 11:18 11:18 WBC 13.4 H (3.8-10.6) k/uL RBC 3.40 L (4.30-5.90) m/uL Hgb 10.3 L (13.0-17.5) gm/dL Hct 31.4 L (39.0-53.0) % MCV 92.4 (80.0-100.0) fL MCH 30.4 (25.0-35.0) pg MCHC 32.8 (31.0-37.0) g/dL RDW 17.7 H (11.5-15.5) % Plt Count 413 (150-450) k/uL Neutrophils % 80 % Lymphocytes % 11 % Monocytes % 7 % Eosinophils % 0 % Basophils % 0 % Neutrophils # 10.8 H (1.3-7.7) k/uL Lymphocytes # 1.4 (1.0-4.8) k/uL Monocytes # 1.0 (0-1.0) k/uL Eosinophils # 0.1 (0-0.7) k/uL Basophils # 0.1 (0-0.2) k/uL Hypochromasia Slight Poikilocytosis Slight Anisocytosis Slight PT (9.0-12.0) sec INR (<1.2) APTT (22.0-30.0) sec Sodium 136 L (137-145) mmol/L Potassium 3.5 (3.5-5.1) mmol/L Chloride 101 (98-107) mmol/L Carbon Dioxide 24 (22-30) mmol/L Anion Gap 11 mmol/L BUN 9 (9-20) mg/dL Creatinine 0.70 (0.66-1.25) mg/dL Est GFR (MDRD) Af Amer >60 (>60 ml/min/1.73 sqM) Est GFR (MDRD) Non-Af >60 (>60 ml/min/1.73 sqM) Glucose 157 H (74-99) mg/dL Calcium 9.2 (8.4-10.2) mg/dL Magnesium 1.7 (1.6-2.3) mg/dL Total Bilirubin 0.7 (0.2-1.3) mg/dL AST 28 (17-59) U/L ALT 47 (21-72) U/L Alkaline Phosphatase 80 (38-126) U/L Total Creatine Kinase 41 L (55-170) U/L CK-MB (CK-2) 1.5 (0.0-2.4) ng/mL CK-MB (CK-2) Rel Index 3.7 Troponin I 0.018 (0.000-0.034) ng/mL Total Protein 6.2 L (6.3-8.2) g/dL Albumin 3.2 L (3.5-5.0) g/dL TSH 0.695 (0.465-4.680) mIU/L Free T4 2.05 (0.78-2.19) ng/dL Free T3 pg/mL 5.3 (2.8-5.3) pg/ml 08/06/17 Range/Units 11:18 WBC (3.8-10.6) k/uL RBC (4.30-5.90) m/uL Hgb (13.0-17.5) gm/dL Hct (39.0-53.0) % MCV (80.0-100.0) fL MCH (25.0-35.0) pg MCHC (31.0-37.0) g/dL RDW (11.5-15.5) % Plt Count (150-450) k/uL Neutrophils % % Lymphocytes % % Monocytes % % Eosinophils % % Basophils % % Neutrophils # (1.3-7.7) k/uL Lymphocytes # (1.0-4.8) k/uL Monocytes # (0-1.0) k/uL Eosinophils # (0-0.7) k/uL Basophils # (0-0.2) k/uL Hypochromasia Poikilocytosis Anisocytosis PT 11.3 (9.0-12.0) sec INR 1.1 (<1.2) APTT 25.1 (22.0-30.0) sec Sodium (137-145) mmol/L Potassium (3.5-5.1) mmol/L Chloride (98-107) mmol/L Carbon Dioxide (22-30) mmol/L Anion Gap mmol/L BUN (9-20) mg/dL Creatinine (0.66-1.25) mg/dL Est GFR (MDRD) Af Amer (>60 ml/min/1.73 sqM) Est GFR (MDRD) Non-Af (>60 ml/min/1.73 sqM) Glucose (74-99) mg/dL Calcium (8.4-10.2) mg/dL Magnesium (1.6-2.3) mg/dL Total Bilirubin (0.2-1.3) mg/dL AST (17-59) U/L ALT (21-72) U/L Alkaline Phosphatase (38-126) U/L Total Creatine Kinase (55-170) U/L CK-MB (CK-2) (0.0-2.4) ng/mL CK-MB (CK-2) Rel Index Troponin I (0.000-0.034) ng/mL Total Protein (6.3-8.2) g/dL Albumin (3.5-5.0) g/dL TSH (0.465-4.680) mIU/L Free T4 (0.78-2.19) ng/dL Free T3 pg/mL (2.8-5.3) pg/ml - Radiology Data Radiology results: image reviewed (Chest x-ray suspicious for developing right upper lobe infiltrate.) Critical Care Time Critical Care Time: Yes Total Critical Care Time: 32 Disposition Clinical Impression: Atrial fibrillation with RVR, Pneumonia, Sepsis Disposition: ADMITTED IP TO THIS [facility] Condition: Serious Referrals: Marcus Gottlieb DO [Primary Care Provider] - 1-2 days Decision Time: 13:09
[2017-08-06 11:46] LABS: Anisocytosis Slight; Basophils # (A) 0.1 k/uL (0-0.2); Basophils % (A) 0 %; CHCM 32.7; Eosinophils # (A) 0.1 k/uL (0-0.7); Eosinophils % (A) 0 %; HCT 31.4 % (39.0-53.0); HDW 3.79; HGB 10.3 gm/dL (13.0-17.5); Hypochromasia Slight; Luc # (Auto) 0.16; Luc % (Auto) 1; Lymphocytes # (A) 1.4 k/uL (1.0-4.8); Lymphocytes % (A) 11 %; MCH 30.4 pg (25.0-35.0); MCHC 32.8 g/dL (31.0-37.0); MCV 92.4 fL (80.0-100.0); Mean Platelet Volume 7.3; Monocytes % (A) 7 %; Neutrophils # (A) 10.8 k/uL (1.3-7.7); Neutrophils % (A) 80 %; Poikilocytosis Slight; RDW 17.7 % (11.5-15.5); WBC 13.4 k/uL (3.8-10.6); WBC (Perox) 13.96
[2017-08-06 11:54] LABS: ALT 47 U/L (21-72); AST 28 U/L (17-59); Alkaline Phosphatase 80 U/L (38-126); Anion Gap 11 mmol/L; Blood Urea Nitrogen 9 mg/dL (9-20); Calcium 9.2 mg/dL (8.4-10.2); Carbon Dioxide 24 mmol/L (22-30); Chloride 101 mmol/L (98-107); Glucose 157 mg/dL (74-99); Magnesium 1.7 mg/dL (1.6-2.3); Non-African American GFR(MDRD) >60 (>60 ml/min/1.73 sqM); Potassium 3.5 mmol/L (3.5-5.1); Sodium 136 mmol/L (137-145); Total Bilirubin 0.7 mg/dL (0.2-1.3); Total Protein 6.2 g/dL (6.3-8.2)
[2017-08-06 12:05] LABS: INR 1.1 (<1.2); Partial Thromboplastin Time 25.1 sec (22.0-30.0); Prothrombin Time 11.3 sec (9.0-12.0)
[2017-08-06 12:17] LABS: Creatine Kinase MB 1.5 ng/mL (0.0-2.4); Troponin I 0.018 ng/mL (0.000-0.034)
--- NOTE | 2017-08-06 12:39 | XR ---
EXAMINATION TYPE: XR chest 2V DATE OF EXAM: 08/06/2017 HISTORY: dysrhythmia. REFERENCE: Previous study dated 07/09/2017. FINDINGS: Lung volumes are prominent. The heart is enlarged. There is a developing opacity in the rig ht upper lung. This is an interval change. Pleural spaces are clear. IMPRESSION: 1. COPD. 2. CARDIOMEGALY. 3. DEVELOPING RIGHT UPPER LOBE PNEUMONIA.
[2017-08-06] MEDS ORDERED: PNEUMONIA PROTOCOL UTILIZED 1 EACH MISC PO PRN (13:05)
[2017-08-06] MEDS ORDERED: NON-FORMULARY DRUG (Tiotropium 18 Mcg/Puff 1 CAP) INHALATION PRN (13:07)
[2017-08-06] MEDS ORDERED: ALBUTEROL NEBULIZED 2.5 MG/3 ML INHALATION PRN (13:07)
[2017-08-06] MEDS ORDERED: AZITHROMYCIN 500 MG in SODIUM CHLORIDE 0.9% 250 ML IVPB STA (13:08)
[2017-08-06] MEDS ORDERED: cefTRIAXone IN SWFI 1,000 MG/10 ML SYRINGE IVP STA (13:08)
[2017-08-06] MEDS: SODIUM CHLORIDE 0.9% 1,000 ML IV SCH ×2 (14:07→22:30)
[2017-08-06] MEDS ORDERED: HYDROcodone/APAP 5-325MG 1 EACH TAB PO STA (14:13)
[2017-08-06] MEDS: IPRATROPIUM-ALBUTEROL 3 ML NEB INHALATION SCH ×2 (15:37→19:44)
[2017-08-06 16:01] VITALS: BMI 28.8
--- NOTE | 2017-08-06 16:22 | P.HPIM ---
History of Present Illness H&P Date: 08/06/17 Chief Complaint: Shortness of breath Agent is a 66-year-old male with a known history of atrial fibrillation on anticoagulation, COPD on home oxygen, hypertension, peripheral vascular disease with bilateral lower extremity toe wounds, hyperlipidemia and other medical problems came to the hospital with complaints of shortness of breath started this morning. Patient felt shortness of breath first and then followed by heart beating of fast and felt like atrial fibrillation. Patient came to the hospital. Patient became diaphoretic and shortness of breath. Patient otherwise denied any complaints of fever or chills. No cough or sputum production. No complaints of chest pain at patient denied any recent illnesses. Denied any recent travel or sick contacts at home.. Patient is following vascular surgery recently for his decreased blood supply in the leg and wounds. Patient was found have right upper lobe pneumonia and was started on antibiotics. Patient also on atrial fibrillation with rapid ventricular rate. Review of Systems Constitutional: Patient denies any fever or chills . No generalized weakness or weight loss. Abdomen: Patient denied nausea vomiting and diarrhea and abdominal pain. Cardiovascular: Patient denies any chest pain patient does have palpitations and shortness of breath.. Respiratory: patient denied any cough is from production. Positive shortness of breath Neurologic: Patient denied any numbness or tingling headache. Musculoskeletal: Patient denies any complaints of joint swelling or deformity. Skin: Negative Psychiatric: Negative Endocrine: No heat or cold intolerance. No recent weight gain. Genitourinary: No dysuria or hematuria. All other 14 point ROS negative except the above Past Medical History Past Medical History: Atrial Fibrillation, Cancer, COPD, Hyperlipidemia, Hypertension, Vascular Disorder Additional Past Medical History / Comment(s): "growth in my lung", PVD, Neuropathy, wound lt great toe and left heel-healed, uses w/c,cane walk short distance with cane History of Any Multi-Drug Resistant Organisms: MRSA Date of last positivie culture/infection: 2012 MDRO Source:: rt ankle wound Past Surgical History: Orthopedic Surgery Additional Past Surgical History / Comment(s): aortic valve replacement, rt ankle surgery with screws and pins, cardioversion,eye surgery at age 15, bronchoscopy at [facility] in [place] Past Anesthesia/Blood Transfusion Reactions: No Reported Reaction Additional Past Anesthesia/Blood Transfusion Reaction / Comment(s): pt states "awakened prior to bronchoscopy being withdrawn." Past Psychological History: No Psychological Hx Reported Smoking Status: Former smoker Past Alcohol Use History: None Reported Past Drug Use History: None Reported - Past Family History Mother Family Medical History: Cancer Additional Family Medical History / Comment(s): lung cancer Father Family Medical History: No Reported History Medications and Allergies Home Medications Medication Instructions Recorded Confirmed Type Losartan Potassium [Cozaar] 100 mg PO QAM 03/26/16 08/06/17 History Tiotropium 18 Mcg/Puff [Spiriva] 1 cap INHALATION RT-DAILY PRN 03/26/16 History Albuterol Sulfate [Proair Hfa] 2 puff INHALATION RT-Q6H PRN 06/17/17 08/06/17 History Apixaban [Eliquis] 5 mg PO BID #60 tab 06/19/17 08/06/17 Rx Metoprolol Tartrate [Lopressor] 50 mg PO TID #90 tab 06/19/17 08/06/17 Rx Ipratropium-Albuterol Nebulize 3 ml INHALATION RT-QID #150 neb 07/03/17 Rx [Duoneb 0.5 mg-3 mg/3 ml Soln] Potassium Chloride [K-Tab ER] 10 meq PO DAILY 07/09/17 08/06/17 History Magnesium Oxide [Mag-Ox] 400 mg PO DAILY #30 tab 07/11/17 08/06/17 Rx Pravastatin Sodium [Pravachol] 80 mg PO HS #30 tab 07/11/17 08/06/17 Rx Furosemide [Lasix] 20 mg PO BID 08/06/17 08/06/17 History Gabapentin [Neurontin] 400 mg PO TID 08/06/17 08/06/17 History Multivitamins, Thera [Multivitamin 1 tab PO DAILY 08/06/17 08/06/17 History (formulary)] Nortriptyline HCl [Pamelor] 25 mg PO DAILY 08/06/17 08/06/17 History Pyridoxine [Vitamin B-6] 50 mg PO DAILY 08/06/17 08/06/17 History busPIRone HCL 5 mg PO BID 08/06/17 08/06/17 History oxyCODONE HCL 30 mg PO TID PRN 08/06/17 08/06/17 History Allergies Allergy/AdvReac Type Severity Reaction Status Date / Time atorvastatin [From Lipitor] Allergy Swelling Verified 08/06/17 12:33 lisinopril Allergy Cough Verified 08/06/17 12:33 sulfamethoxazole Allergy Swelling Verified 08/06/17 12:33 [From Bactrim] terazosin Allergy Unknown Verified 08/06/17 12:33 trimethoprim [From Bactrim] Allergy Swelling Verified 08/06/17 12:33 Physical Exam Vitals: Vital Signs Temp Pulse Resp BP Pulse Ox 08/06/17 15:11 98.2 F 115 H 14 134/60 98 08/06/17 14:11 112 H 22 134/81 98 08/06/17 12:49 123 H 18 164/70 95 08/06/17 12:05 155 H 18 118/69 97 08/06/17 11:00 98.3 F 146 H 22 119/79 97 Intake and Output 08/06/17 08/06/17 08/06/17 06:59 14:59 22:59 Other: Weight 93.894 kg Patient Weight 08/07/17 06:59 Weight 93.894 kg PHYSICAL EXAMINATION: Patient is lying in the bed comfortably, no acute distress, awake alert and oriented.. HEENT: Normocephalic. Neck is supple. Pupils reactive. Nostrils clear. Oral cavity is moist. Ears reveal no drainage. Neck reveals no JVD, carotid bruits, or thyromegaly. CHEST EXAMINATION: Trachea is central. Symmetrical expansion. Lung blackburn clear to auscultation and percussion. CARDIAC: Normal S1, S2 with no gallops. No murmurs ABDOMEN: Soft. Bowel sounds normal. No organomegaly. No abdominal bruits. Extremities: reveal no edema. No clubbing or cyanosis. Patient does have gangrenous ulcers on the bilateral lower extremity toes Neurologically awake, alert, oriented x3 with well-coordinated movements. No focal deficits noted Skin: No rash or skin lesions. Psychiatric: Operative. Nonsuicidal Musculoskeletal: No joint swelling or deformity. Normal range of motion. Results CBC & Chem 7: 08/06/17 11:18 08/06/17 11:18 Labs: Abnormal Lab Results - Last 24 Hours (Table) 08/06/17 08/06/17 08/06/17 Range/Units 11:18 11:18 11:18 WBC 13.4 H (3.8-10.6) k/uL RBC 3.40 L (4.30-5.90) m/uL Hgb 10.3 L (13.0-17.5) gm/dL Hct 31.4 L (39.0-53.0) % RDW 17.7 H (11.5-15.5) % Neutrophils # 10.8 H (1.3-7.7) k/uL Sodium 136 L (137-145) mmol/L Glucose 157 H (74-99) mg/dL Total Creatine Kinase 41 L (55-170) U/L Total Protein 6.2 L (6.3-8.2) g/dL Albumin 3.2 L (3.5-5.0) g/dL Assessment and Plan Assessment: #1 right upper lobe pneumonia #2 atrial fibrillation with a rapid regular rate #3 chronic atrial fibrillation on anticoagulation with eliquis #4 COPD on home oxygen #5 chronic respiratory failure and oxygen dependent #6 peripheral vascular disease with bilateral lower extremity wounds. Not infected #7 hypertension #8 hyperlipidemia Plan: Patient will be continued on antibiotics in the form of ceftriaxone and azithromycin. Patient was started on Cardizem drip. We will continue the telemetry monitoring and serial troponins. Continue the home medications and oxygen therapy. Will follow closely and further recommendations based on the clinical course. Time with Patient: Greater than 30
[2017-08-06] MEDS: METOPROLOL TARTRATE 50 MG TAB PO SCH ×2 (17:34→22:30)
[2017-08-06] MEDS: FUROSEMIDE 20 MG TAB PO SCH (18:10)
[2017-08-06] MEDS: busPIRone HCl 5 MG TAB PO SCH (18:10)
[2017-08-06] MEDS: GABAPENTIN 400 MG CAP PO SCH ×2 (18:11→22:30)
[2017-08-06] MEDS: NORTRIPTYLINE 25 MG CAP PO SCH (18:11)
[2017-08-06] MEDS: PRAVASTATIN SODIUM 80 MG TAB PO SCH (20:24)
[2017-08-06] MEDS: APIXABAN 5 MG TAB PO SCH (20:24)
[2017-08-07 06:10] LABS: Anisocytosis Slight; Basophils # (A) 0.1 k/uL (0-0.2); Basophils % (A) 1 %; CH 29.6; CHCM 31.2; Eosinophils # (A) 0.1 k/uL (0-0.7); Eosinophils % (A) 1 %; HCT 29.1 % (39.0-53.0); HDW 3.73; HGB 9.1 gm/dL (13.0-17.5); Hypochromasia Marked; Luc # (Auto) 0.22; Luc % (Auto) 2; Lymphocytes # (A) 1.6 k/uL (1.0-4.8); Lymphocytes % (A) 15 %; MCH 29.8 pg (25.0-35.0); MCHC 31.2 g/dL (31.0-37.0); MCV 95.6 fL (80.0-100.0); Macrocytosis Slight; Mean Platelet Volume 7.2; Monocytes # (A) 0.8 k/uL (0-1.0); Monocytes % (A) 8 %; Neutrophils # (A) 8.2 k/uL (1.3-7.7); Neutrophils % (A) 74 %; Poikilocytosis Slight; RBC 3.04 m/uL (4.30-5.90); RDW 17.6 % (11.5-15.5); WBC (Perox) 11.24
[2017-08-07 06:27] LABS: Anion Gap 7 mmol/L; Blood Urea Nitrogen 8 mg/dL (9-20); Calcium 8.8 mg/dL (8.4-10.2); Carbon Dioxide 25 mmol/L (22-30); Chloride 103 mmol/L (98-107); Glucose 102 mg/dL (74-99); Non-African American GFR(MDRD) >60 (>60 ml/min/1.73 sqM); Potassium 3.3 mmol/L (3.5-5.1); Sodium 135 mmol/L (137-145)
[2017-08-07] MEDS: IPRATROPIUM-ALBUTEROL 3 ML NEB INHALATION SCH ×4 (07:10→20:34)
--- NOTE | 2017-08-07 07:48 | XR ---
EXAMINATION TYPE: XR chest 2V DATE OF EXAM: 08/07/2017 COMPARISON: Prior chest x-ray 08/06/[address] 08/04/2017 HISTORY: Pneumonia TECHNIQUE: Frontal and lateral views of the chest are obtained. FINDINGS: There are prominent lung volumes. Patient is status post aortic valve stent placement. Pat ient is post median sternotomy. Interstitium is increased. No pneumothorax or pleural effusion. Minim al patchy density in the lingula persists. Heart remains enlarged. Nodularity again noted bilaterally within the lungs. IMPRESSION: Correlate for pulmonary venous hypertension and interstitial edema. Nodular densities pe rsist within the lungs.
[2017-08-07] MEDS ORDERED: Potassium Replacement Protocol 1 EACH MISC MISCELLANE PRN ×2 (07:51→17:52)
[2017-08-07] MEDS: POTASSIUM CHLORIDE ER 20 MEQ TAB.ER PO SCH ×2 (09:17→11:39)
[2017-08-07] MEDS: AZITHROMYCIN 500 MG TAB PO SCH (09:18)
[2017-08-07] MEDS: GABAPENTIN 400 MG CAP PO SCH ×3 (09:18→21:12)
[2017-08-07] MEDS: FUROSEMIDE 20 MG TAB PO SCH ×2 (09:18→16:22)
[2017-08-07] MEDS: METOPROLOL TARTRATE 50 MG TAB PO SCH ×2 (09:18→20:25)
[2017-08-07] MEDS: LOSARTAN 50 MG TAB PO SCH (09:19)
[2017-08-07] MEDS: NORTRIPTYLINE 25 MG CAP PO SCH (09:19)
[2017-08-07] MEDS: APIXABAN 5 MG TAB PO SCH ×2 (09:19→20:25)
[2017-08-07] MEDS: PYRIDOXINE 50 MG TAB PO SCH (09:19)
[2017-08-07] MEDS: busPIRone HCl 5 MG TAB PO SCH ×2 (09:20→20:25)
[2017-08-07] MEDS: MAGNESIUM OXIDE 400 MG TAB PO SCH (09:20)
[2017-08-07] MEDS: POTASSIUM CHLORIDE ER 10 MEQ TAB.ER.PRT PO SCH (09:21)
[2017-08-07] MEDS: cefTRIAXone IN SWFI 1,000 MG/10 ML SYRINGE IVP SCH (09:31)
--- NOTE | 2017-08-07 09:53 | P.CRDCN ---
History of Present Illness Consult date: 08/07/17 Chief complaint: Shortness of breath History of present illness: This is a pleasant 66-year-old gentleman who sees Dr. Aden in the office as an outpatient with a known history of long-standing persistent atrial fibrillation on chronic anticoagulation as well as on metoprolol, chronic obstructive pulmonary disease, peripheral arterial disease and evidence of critical limb ischemia of the left foot, hypertension, dyslipidemia, presented to the hospital complaining of shortness of breath. The patient was in his usual state of health until about yesterday when he started experiencing shortness of breath associated with fever and chills. Also he was having cough productive of sputum. No chest pain or chest discomfort. No lower extremities edema. The chest x-ray showed left lower lobe pneumonia. WBC was elevated. The patient also was in A. fib with RVR at that point and he was started on Cardizem IV. I'll follow-up with him today, overall he is feeling better. Her shortness of breath is improved and continues to not have any chest pain at this point. The patient is also known to have stage IV lung cancer and he was on chemotherapy but not at this point. The prognosis is unknown at this point. Past Medical History Past Medical History: Atrial Fibrillation, Cancer, COPD, Hyperlipidemia, Hypertension, Vascular Disorder Additional Past Medical History / Comment(s): "growth in my lung", PVD, Neuropathy, wound lt great toe and left heel-healed, uses w/c,cane walk short distance with cane History of Any Multi-Drug Resistant Organisms: MRSA Date of last positivie culture/infection: 2012 MDRO Source:: rt ankle wound Past Surgical History: Orthopedic Surgery Additional Past Surgical History / Comment(s): aortic valve replacement, rt ankle surgery with screws and pins, cardioversion,eye surgery at age 15, bronchoscopy at [facility] in [place] Past Anesthesia/Blood Transfusion Reactions: No Reported Reaction Additional Past Anesthesia/Blood Transfusion Reaction / Comment(s): pt states "awakened prior to bronchoscopy being withdrawn." Past Psychological History: No Psychological Hx Reported Smoking Status: Former smoker Past Alcohol Use History: None Reported Past Drug Use History: None Reported - Past Family History Mother Family Medical History: Cancer Additional Family Medical History / Comment(s): lung cancer Father Family Medical History: No Reported History Medications and Allergies Home Medications Medication Instructions Recorded Confirmed Type Losartan Potassium [Cozaar] 100 mg PO QAM 03/26/16 08/06/17 History Tiotropium 18 Mcg/Puff [Spiriva] 1 cap INHALATION RT-DAILY PRN 03/26/16 History Albuterol Sulfate [Proair Hfa] 2 puff INHALATION RT-Q6H PRN 06/17/17 08/06/17 History Apixaban [Eliquis] 5 mg PO BID #60 tab 06/19/17 08/06/17 Rx Metoprolol Tartrate [Lopressor] 50 mg PO TID #90 tab 06/19/17 08/06/17 Rx Ipratropium-Albuterol Nebulize 3 ml INHALATION RT-QID #150 neb 07/03/17 Rx [Duoneb 0.5 mg-3 mg/3 ml Soln] Potassium Chloride [K-Tab ER] 10 meq PO DAILY 07/09/17 08/06/17 History Magnesium Oxide [Mag-Ox] 400 mg PO DAILY #30 tab 07/11/17 08/06/17 Rx Pravastatin Sodium [Pravachol] 80 mg PO HS #30 tab 07/11/17 08/06/17 Rx Furosemide [Lasix] 20 mg PO BID 08/06/17 08/06/17 History Gabapentin [Neurontin] 400 mg PO TID 08/06/17 08/06/17 History Multivitamins, Thera [Multivitamin 1 tab PO DAILY 08/06/17 08/06/17 History (formulary)] Nortriptyline HCl [Pamelor] 25 mg PO DAILY 08/06/17 08/06/17 History Pyridoxine [Vitamin B-6] 50 mg PO DAILY 08/06/17 08/06/17 History busPIRone HCL 5 mg PO BID 08/06/17 08/06/17 History oxyCODONE HCL 30 mg PO TID PRN 08/06/17 08/06/17 History Allergies Allergy/AdvReac Type Severity Reaction Status Date / Time atorvastatin [From Lipitor] Allergy Swelling Verified 08/06/17 12:33 lisinopril Allergy Cough Verified 08/06/17 12:33 sulfamethoxazole Allergy Swelling Verified 08/06/17 12:33 [From Bactrim] terazosin Allergy Unknown Verified 08/06/17 12:33 trimethoprim [From Bactrim] Allergy Swelling Verified 08/06/17 12:33 Physical Exam Vitals: Vital Signs Temp Pulse Pulse Resp BP BP Pulse Ox 08/07/17 08:00 97.6 F 100 18 128/67 96 08/07/17 07:25 108 H 08/07/17 07:13 100 08/07/17 04:00 98.2 F 81 16 119/75 96 08/07/17 00:00 98.1 F 96 16 107/73 99 08/06/17 20:00 97.5 F L 76 16 115/67 97 08/06/17 19:56 110 H 08/06/17 19:44 108 H 08/06/17 16:00 97 F L 106 H 19 144/75 98 08/06/17 15:48 115 H 08/06/17 15:37 110 H 08/06/17 15:11 98.2 F 115 H 14 134/60 98 08/06/17 14:11 112 H 22 134/81 98 08/06/17 12:49 123 H 18 164/70 95 08/06/17 12:05 155 H 18 118/69 97 08/06/17 11:00 98.3 F 146 H 22 119/79 97 Intake and Output 08/06/17 08/07/17 08/07/17 22:59 06:59 14:59 Intake Total 360 40 360 Output Total 800 Balance 360 -760 360 Intake: Intake, IV Titration 130 40 Amount Azithromycin 500 mg In 125 Sodium Chloride 0.9% 250 ml @ 125 mls/hr IVPB ONCE STA Rx#:[id number] Diltiazem 125 mg In 5 40 Sodium Chloride 0.9% 100 ml @ 5 MG/HR 5 mls/hr IV .Q24H ONE Rx#:[id number] Oral 230 360 Output: Urine 800 Other: Voiding Method Urinal Urinal # Voids 0 Weight 93.894 kg 91.4 kg - Constitutional General appearance: no acute distress - Respiratory Respiratory: bilateral: CTA - Cardiovascular Rhythm: irregularly irregular Heart sounds: normal: S1, S2 Results 08/07/17 05:20 08/07/17 05:20 Cardiac Enzymes 08/06/17 08/06/17 Range/Units 11:18 11:18 AST 28 (17-59) U/L CK-MB (CK-2) 1.5 (0.0-2.4) ng/mL Troponin I 0.018 (0.000-0.034) ng/mL Coagulation 08/06/17 Range/Units 11:18 PT 11.3 (9.0-12.0) sec APTT 25.1 (22.0-30.0) sec CBC 08/06/17 08/07/17 Range/Units 11:18 05:20 WBC 13.4 H 11.0 H (3.8-10.6) k/uL RBC 3.40 L 3.04 L (4.30-5.90) m/uL Hgb 10.3 L 9.1 L (13.0-17.5) gm/dL Hct 31.4 L 29.1 L (39.0-53.0) % Plt Count 413 362 (150-450) k/uL Comprehensive Metabolic Panel 08/06/17 08/07/17 Range/Units 11:18 05:20 Sodium 136 L 135 L (137-145) mmol/L Potassium 3.5 3.3 L (3.5-5.1) mmol/L Chloride 101 103 (98-107) mmol/L Carbon Dioxide 24 25 (22-30) mmol/L BUN 9 8 L (9-20) mg/dL Creatinine 0.70 0.60 L (0.66-1.25) mg/dL Glucose 157 H 102 H (74-99) mg/dL Calcium 9.2 8.8 (8.4-10.2) mg/dL AST 28 (17-59) U/L ALT 47 (21-72) U/L Alkaline Phosphatase 80 (38-126) U/L Total Protein 6.2 L (6.3-8.2) g/dL Albumin 3.2 L (3.5-5.0) g/dL Current Medications Generic Name Dose Route Start Last Admin Trade Name Freq PRN Reason Stop Dose Admin Albuterol Sulfate 2.5 mg 08/06/17 13:07 Ventolin Nebulized INHALATION RT-Q6H PRN Shortness Of Breath Albuterol/Ipratropium 3 ml 08/06/17 16:00 08/07/17 07:10 Duoneb 0.5 Mg-3 Mg/3 Ml Soln INHALATION 3 ml RT-QID CHRISTIAN Administration Apixaban 5 mg 08/06/17 21:00 08/07/17 09:19 Eliquis PO 5 mg BID HCRISTIAN Administration Azithromycin 500 mg 08/07/17 09:00 08/07/17 09:18 Zithromax PO 500 mg DAILY CHRISTIAN Administration Buspirone HCl 5 mg 08/06/17 21:00 08/07/17 09:20 Buspar PO 5 mg BID CHRISTIAN Administration Ceftriaxone Sodium 1,000 mg 08/07/17 09:00 08/07/17 09:31 Rocephin IVP 08/10/17 09:01 1,000 mg Q24HR CHRISTIAN Administration Furosemide 20 mg 08/06/17 18:00 08/07/17 09:18 Lasix PO 20 mg BID@0900,1600 CHRISTIAN Administration Gabapentin 400 mg 08/06/17 17:30 08/07/17 09:18 Neurontin PO 400 mg TID CHRISTIAN Administration Sodium Chloride 1,000 mls @ 100 mls/hr 08/06/17 13:15 08/06/17 22:30 Saline 0.9% IV 100 mls/hr .Q10H CHRISTIAN Administration Losartan Potassium 100 mg 08/07/17 09:00 08/07/17 09:19 Cozaar PO 100 mg QAM CHRISTIAN Administration Magnesium Oxide 400 mg 08/07/17 09:00 08/07/17 09:20 Mag-Ox PO 400 mg DAILY CHRISTIAN Administration Metoprolol Tartrate 100 mg 08/07/17 09:00 08/07/17 09:18 Lopressor PO 100 mg BID CHRISTIAN Administration Miscellaneous Information 1 each 08/06/17 13:05 Pneumonia Protocol Utilized PO ONCE PRN Per Protocol Miscellaneous Information 1 each 08/07/17 07:51 Potassium Per Protocol MISCELLANE DAILY PRN Per Protocol Protocol Multivitamins 1 each 08/07/17 12:00 Theragran PO 1200 CHRISTIAN Nortriptyline HCl 25 mg 08/06/17 17:30 08/07/17 09:19 Pamelor PO 25 mg DAILY CHRISTIAN Administration Oxycodone HCl 30 mg 08/06/17 17:30 08/07/17 04:47 Oxyir PO 30 mg TID PRN Administration Pain Potassium Chloride 10 meq 08/07/17 09:00 08/07/17 09:21 K-Dur 10 PO 10 meq DAILY CHRISTIAN Administration Pravastatin Sodium 80 mg 08/06/17 21:00 08/06/17 20:24 Pravachol PO 80 mg HS CHRISTIAN Administration Pyridoxine HCl 50 mg 08/07/17 09:00 08/07/17 09:19 Vitamin B-6 PO 50 mg DAILY CHRISTIAN Administration Intake and Output 08/06/17 08/07/17 08/07/17 22:59 06:59 14:59 Intake Total 360 40 360 Output Total 800 Balance 360 -760 360 Intake: Intake, IV Titration 130 40 Amount Azithromycin 500 mg In 125 Sodium Chloride 0.9% 250 ml @ 125 mls/hr IVPB ONCE STA Rx#:[id number] Diltiazem 125 mg In 5 40 Sodium Chloride 0.9% 100 ml @ 5 MG/HR 5 mls/hr IV .Q24H ONE Rx#:[id number] Oral 230 360 Output: Urine 800 Other: Voiding Method Urinal Urinal # Voids 0 Weight 93.894 kg 91.4 kg 08/07/17 05:20 08/07/17 05:20 Assessment and Plan Assessment: This is a 66-year-old gentleman who was admitted to the hospital with shortness of breath associated with cough productive of sputum as well as fever and chills and was diagnosed with pneumonia and was started on antibiotic. Hemodynamically, he is in A. fib with controlled heart rate at this point. Will stop the Cardizem IV and increase the dose of metoprolol by mouth. Continue oral anticoagulation. Recent echocardiogram revealed normal LV function without significant valvular abnormalities. We'll continue following up with the patient and thank you for allowing us participate in his care
[2017-08-07] MEDS: SODIUM CHLORIDE 0.9% 1,000 ML IV SCH ×3 (11:39→21:13)
[2017-08-07] MEDS: MULTIVITAMINS, THERA 1 EACH TAB PO SCH (11:40)
[2017-08-07] MEDS ORDERED: POTASSIUM CHLORIDE ER 20 MEQ TAB.ER PO SCH (18:00)
[2017-08-07] MEDS: PRAVASTATIN SODIUM 80 MG TAB PO SCH (20:25)
--- NOTE | 2017-08-07 23:23 | P.PN ---
Subjective Progress Note Date: 08/07/17 Principal diagnosis: Atrial fibrillation with rapid ventricular rate Agent is a 66-year-old male with a known history of atrial fibrillation on anticoagulation, COPD on home oxygen, hypertension, peripheral vascular disease with bilateral lower extremity toe wounds, hyperlipidemia and other medical problems came to the hospital with complaints of shortness of breath started this morning. Patient felt shortness of breath first and then followed by heart beating of fast and felt like atrial fibrillation. Patient came to the hospital. Patient became diaphoretic and shortness of breath. Patient otherwise denied any complaints of fever or chills. No cough or sputum production. No complaints of chest pain at patient denied any recent illnesses. Denied any recent travel or sick contacts at home.. Patient is following vascular surgery recently for his decreased blood supply in the leg and wounds. Patient was found have right upper lobe pneumonia and was started on antibiotics. Patient also on atrial fibrillation with rapid ventricular rate. 08/07/2017 Patient says that his breathing is improved today. Cardizem drip has been discontinued and started on metoprolol. Denied any chest pain. No fever no chills. Otherwise no acute overnight issues. All other review of systems negative except above Current medications reviewed Objective - Vital Signs Vital signs: Vital Signs Temp 97.8 F 08/07/17 20:00 Pulse 100 08/07/17 20:45 Resp 18 08/07/17 20:00 BP 102/70 08/07/17 20:00 Pulse Ox 95 08/07/17 20:00 Intake & Output 08/07/17 08/07/17 08/08/17 06:59 18:59 06:59 Intake Total 40 600 Output Total 800 800 Balance -760 -200 Weight 91.4 kg Intake: Intake, IV Titration 40 Amount Diltiazem 125 mg In 40 Sodium Chloride 0.9% 100 ml @ 5 MG/HR 5 mls/hr IV .Q24H ONE Rx#:[id number] Oral 600 Output: Urine 800 800 Other: Voiding Method Urinal Urinal # Voids 400 1 - Exam Patient is lying in the bed comfortably, no acute distress, awake alert and oriented.. HEENT: Normocephalic. Neck is supple. Pupils reactive. Nostrils clear. Oral cavity is moist. Ears reveal no drainage. Neck reveals no JVD, carotid bruits, or thyromegaly. CHEST EXAMINATION: Trachea is central. Symmetrical expansion. Lung blackburn clear to auscultation and percussion. CARDIAC: Normal S1, S2 with no gallops. No murmurs ABDOMEN: Soft. Bowel sounds normal. No organomegaly. No abdominal bruits. Extremities: reveal no edema. No clubbing or cyanosis. Patient does have gangrenous ulcers on the bilateral lower extremity toes Neurologically awake, alert, oriented x3 with well-coordinated movements. No focal deficits noted Skin: No rash or skin lesions. Psychiatric: Operative. Nonsuicidal Musculoskeletal: No joint swelling or deformity. Normal range of motion. - Labs CBC & Chem 7: 08/07/17 05:20 08/07/17 16:35 Labs: Abnormal Lab Results - Last 24 Hours (Table) 08/07/17 08/07/17 Range/Units 05:20 05:20 WBC 11.0 H (3.8-10.6) k/uL RBC 3.04 L (4.30-5.90) m/uL Hgb 9.1 L (13.0-17.5) gm/dL Hct 29.1 L (39.0-53.0) % RDW 17.6 H (11.5-15.5) % Neutrophils # 8.2 H (1.3-7.7) k/uL Sodium 135 L (137-145) mmol/L Potassium 3.3 L (3.5-5.1) mmol/L BUN 8 L (9-20) mg/dL Creatinine 0.60 L (0.66-1.25) mg/dL Glucose 102 H (74-99) mg/dL Microbiology - Last 24 Hours (Table) 08/06/17 13:26 Blood Culture - Preliminary Blood No Growth after 24 hours 08/06/17 20:00 Gram Stain - Preliminary Sputum Sputum Culture - Preliminary Assessment and Plan Assessment: #1 right upper lobe pneumonia. Improving clinically #2 atrial fibrillation with a rapid regular rate #3 chronic atrial fibrillation on anticoagulation with eliquis #4 COPD on home oxygen #5 chronic respiratory failure and oxygen dependent #6 peripheral vascular disease with bilateral lower extremity wounds. Not infected #7 hypertension #8 hyperlipidemia Plan: Patient will be continued on antibiotics in the form of ceftriaxone and azithromycin. Patient was started on Cardizem drip which has been discontinued due to improved heart rate. Patient started on metoprolol. Patient was seen by cardiology We will continue the telemetry monitoring and serial troponins. Continue the home medications and oxygen therapy. Will follow closely and further recommendations based on the clinical course. Time with Patient: Greater than 30
[2017-08-08] MEDS ORDERED: FUROSEMIDE 10 MG/ML 4 ML VIAL IV STA (01:37)
[2017-08-08 01:48] LABS: Glucose,Whole Blood 161 mg/dL (75-99)
[2017-08-08] MEDS ORDERED: methylPREDNISolone SOD SUCCI 125 MG/2 ML VIAL IV STA (01:55)
[2017-08-08 02:12] LABS: Anisocytosis Slight; Basophils # (A) 0.1 k/uL (0-0.2); Basophils % (A) 1 %; CH 29.5; CHCM 30.1; Eosinophils # (A) 0.2 k/uL (0-0.7); Eosinophils % (A) 1 %; HCT 33.9 % (39.0-53.0); HDW 3.66; HGB 10.3 gm/dL (13.0-17.5); Hypochromasia Marked; Luc # (Auto) 0.41; Luc % (Auto) 3; Lymphocytes # (A) 3.4 k/uL (1.0-4.8); Lymphocytes % (A) 22 %; MCHC 30.4 g/dL (31.0-37.0); MCV 98.8 fL (80.0-100.0); Macrocytosis Slight; Mean Platelet Volume 7.1; Monocytes # (A) 1.3 k/uL (0-1.0); Monocytes % (A) 8 %; Neutrophils # (A) 9.8 k/uL (1.3-7.7); Neutrophils % (A) 65 %; Poikilocytosis Slight; RBC 3.43 m/uL (4.30-5.90); RDW 17.9 % (11.5-15.5); WBC 15.1 k/uL (3.8-10.6); WBC (Perox) 15.81
[2017-08-08 02:32] LABS: ALT 40 U/L (21-72); AST 25 U/L (17-59); Alkaline Phosphatase 69 U/L (38-126); Anion Gap 10 mmol/L; Blood Urea Nitrogen 9 mg/dL (9-20); Calcium 8.9 mg/dL (8.4-10.2); Carbon Dioxide 23 mmol/L (22-30); Chloride 105 mmol/L (98-107); Glucose 150 mg/dL (74-99); Magnesium 1.7 mg/dL (1.6-2.3); Non-African American GFR(MDRD) >60 (>60 ml/min/1.73 sqM); Potassium 3.9 mmol/L (3.5-5.1); Sodium 138 mmol/L (137-145); Total Bilirubin 0.3 mg/dL (0.2-1.3); Total Protein 6.2 g/dL (6.3-8.2)
[2017-08-08] MEDS ORDERED: Magnesium Replacement Protocol 1 EACH MISC MISCELLANE PRN ×2 (03:35→09:14)
[2017-08-08] MEDS ORDERED: IPRATROPIUM-ALBUTEROL 3 ML NEB INHALATION PRN (03:35)
[2017-08-08] MEDS ORDERED: NALOXONE 0.4 MG/ML 1 ML VIAL IV PRN (03:35)
[2017-08-08] MEDS ORDERED: Phosphorus Replacement Protoco 1 EACH MISC MISCELLANE PRN (03:35)
[2017-08-08] MEDS ORDERED: methylPREDNISolone SOD SUCCI 125 MG/2 ML VIAL IV SCH (06:00)
[2017-08-08] MEDS: IPRATROPIUM-ALBUTEROL 3 ML NEB INHALATION SCH ×4 (07:18→21:29)
[2017-08-08 07:20] LABS: Glucose,Whole Blood 235 mg/dL (75-99)
--- NOTE | 2017-08-08 07:37 | XR ---
EXAMINATION TYPE: XR chest 1V DATE OF EXAM: 08/08/2017 COMPARISON: Prior chest x-ray 08/07/2017 HISTORY: Dyspnea TECHNIQUE: Single frontal view of the chest is obtained. FINDINGS: Interstitium remains prominent, the heart is enlarged. No evident pneumothorax. There are overlying cardiac leads. Patient is post median sternotomy. No sizable effusion. IMPRESSION: Correlate for possible pulmonary venous hypertension and interstitial edema. There may b e some improvement in volume status in the interval. Nodularity within the lungs persists.
[2017-08-08 08:19] LABS: Appearance,Urine Cloudy (Clear); Bacteria,Urine Rare /hpf; Bilirubin,Urine Negative (Negative); Glucose,Urine (UA) Negative (Negative); Ketones,Urine 1+ (Negative); Leukocyte Esterase,Urine Large (Negative); Mucus,Urine Rare /hpf; Nitrite,Urine Negative (Negative); Particle Count 3557; Protein,Urine Trace (Negative); RBC,Urine 29 /hpf (0-5); Specific Gravity,Urine 1.011 (1.001-1.035); UA Billing (MACRO vs. MICRO) MICRO; Urobilinogen,Urine <2.0 mg/dL (<2.0); WBC,Urine 86 /hpf (0-5)
[2017-08-08] MEDS: PANTOPRAZOLE 40 MG TABLET PO SCH (08:22)
[2017-08-08] MEDS: APIXABAN 5 MG TAB PO SCH ×2 (08:22→21:06)
[2017-08-08] MEDS: FUROSEMIDE 20 MG TAB PO SCH ×2 (08:23→14:54)
[2017-08-08] MEDS: AZITHROMYCIN 500 MG TAB PO SCH (08:23)
[2017-08-08] MEDS: busPIRone HCl 5 MG TAB PO SCH ×2 (08:23→21:06)
[2017-08-08] MEDS: LOSARTAN 50 MG TAB PO SCH (08:23)
[2017-08-08] MEDS: GABAPENTIN 400 MG CAP PO SCH ×3 (08:23→21:06)
[2017-08-08] MEDS: MAGNESIUM OXIDE 400 MG TAB PO SCH (08:23)
[2017-08-08] MEDS: METOPROLOL TARTRATE 50 MG TAB PO SCH ×2 (08:24→21:06)
[2017-08-08] MEDS: NORTRIPTYLINE 25 MG CAP PO SCH (08:24)
[2017-08-08] MEDS: POTASSIUM CHLORIDE ER 10 MEQ TAB.ER.PRT PO SCH (08:24)
[2017-08-08] MEDS: PYRIDOXINE 50 MG TAB PO SCH (08:24)
[2017-08-08] MEDS: INSULIN LISPRO (humaLOG) 300 UNIT/3 ML VIAL SQ SCH ×4 (08:58→21:06)
[2017-08-08] MEDS: cefTRIAXone IN SWFI 1,000 MG/10 ML SYRINGE IVP SCH (08:59)
[2017-08-08] MEDS ORDERED: FUROSEMIDE 20 MG TAB PO STA (09:28)
[2017-08-08] MEDS: MAGNESIUM SULFATE-D5W PMX 1 GM in DEXTROSE/WATER 1 100ML.BAG IVPB SCH ×2 (09:43→10:38)
--- NOTE | 2017-08-08 11:13 | P.PN ---
Subjective Progress Note Date: 08/08/17 Principal diagnosis: Atrial fibrillation with RVR This is a pleasant 66-year-old gentleman who sees Dr. Aden in the office as an outpatient with a known history of long-standing persistent atrial fibrillation on chronic anticoagulation as well as on metoprolol, chronic obstructive pulmonary disease, peripheral arterial disease and evidence of critical limb ischemia of the left foot, hypertension, dyslipidemia, presented to the hospital complaining of shortness of breath. The patient was in his usual state of health until about yesterday when he started experiencing shortness of breath associated with fever and chills. Also he was having cough productive of sputum. No chest pain or chest discomfort. No lower extremities edema. The chest x-ray showed left lower lobe pneumonia. WBC was elevated. The patient also was in A. fib with RVR at that point and he was started on Cardizem IV. The patient was transferred from 60s to ICU yesterday because last night he went to use the bathroom and he felt weak. He was quite tachycardic. I'll follow-up with him today, he is feeling already better. The heart rate has been in the 90s on the current dose of metoprolol. Currently he is on Lasix by mouth. He has been diuresing very well. The patient can be transferred to E. again. Objective - Vital Signs Vital signs: Vital Signs Temp 98.5 F 08/08/17 08:00 Pulse 85 08/08/17 10:00 Resp 26 H 08/08/17 10:00 BP 137/66 08/08/17 10:00 Pulse Ox 96 08/08/17 10:00 Intake & Output 08/07/17 08/08/17 08/08/17 18:59 06:59 18:59 Intake Total 600 340 Output Total 800 2225 275 Balance -200 -2225 65 Intake: Intake, IV Titration 100 Amount Magnesium Sulfate-D5w Pmx 100 1 gm In Dextrose/Water 1 100ml.bag @ 100 mls/hr IVPB Q1H [facility] Rx#: [id number] Sodium Chloride 0.9% 1, 0 000 ml @ 100 mls/hr IV . Q10H [facility] Rx#:[id number] Oral 600 240 Output: Urine 800 2225 275 Other: Voiding Method Indwelling Catheter Indwelling Catheter # Voids 400 1 1 # Bowel Movements 1 - Constitutional General appearance: Present: no acute distress - Respiratory Respiratory: bilateral: diminished, rales - Cardiovascular Rhythm: irregularly irregular - Labs CBC & Chem 7: 08/08/17 01:57 08/08/17 01:57 Labs: Abnormal Lab Results - Last 24 Hours (Table) 08/08/17 08/08/17 08/08/17 Range/Units 01:00 01:37 01:57 WBC 15.1 H (3.8-10.6) k/uL RBC 3.43 L (4.30-5.90) m/uL Hgb 10.3 L (13.0-17.5) gm/dL Hct 33.9 L (39.0-53.0) % MCHC 30.4 L (31.0-37.0) g/dL RDW 17.9 H (11.5-15.5) % Plt Count 452 H (150-450) k/uL Neutrophils # 9.8 H (1.3-7.7) k/uL Monocytes # 1.3 H (0-1.0) k/uL Glucose (74-99) mg/dL POC Glucose (mg/dL) 161 H (75-99) mg/dL Plasma Lactic Acid Sancho 2.4 H* (0.7-2.0) mmol/L Total Protein (6.3-8.2) g/dL Albumin (3.5-5.0) g/dL Urine Protein (Negative) Urine Ketones (Negative) Urine Blood (Negative) Ur Leukocyte Esterase (Negative) Urine RBC (0-5) /hpf Urine WBC (0-5) /hpf Urine Bacteria (None) /hpf Urine Mucus (None) /hpf 08/08/17 08/08/17 08/08/17 Range/Units 01:57 07:18 07:55 WBC (3.8-10.6) k/uL RBC (4.30-5.90) m/uL Hgb (13.0-17.5) gm/dL Hct (39.0-53.0) % MCHC (31.0-37.0) g/dL RDW (11.5-15.5) % Plt Count (150-450) k/uL Neutrophils # (1.3-7.7) k/uL Monocytes # (0-1.0) k/uL Glucose 150 H (74-99) mg/dL POC Glucose (mg/dL) 235 H (75-99) mg/dL Plasma Lactic Acid Sancho (0.7-2.0) mmol/L Total Protein 6.2 L (6.3-8.2) g/dL Albumin 3.2 L (3.5-5.0) g/dL Urine Protein Trace H (Negative) Urine Ketones 1+ H (Negative) Urine Blood Moderate H (Negative) Ur Leukocyte Esterase Large H (Negative) Urine RBC 29 H (0-5) /hpf Urine WBC 86 H (0-5) /hpf Urine Bacteria Rare H (None) /hpf Urine Mucus Rare H (None) /hpf Microbiology - Last 24 Hours (Table) 08/06/17 20:00 Gram Stain - Final Sputum Sputum Culture - Final 08/06/17 13:26 Blood Culture - Preliminary Blood No Growth after 24 hours Assessment and Plan Assessment: This is a 66-year-old gentleman who was admitted to the hospital with shortness of breath associated with cough productive of sputum as well as fever and chills and was diagnosed with pneumonia and was started on antibiotic. Hemodynamically, he is in A. fib with controlled heart rate at this point. Recent echocardiogram revealed normal LV function without significant valvular abnormalities. We'll continue following up with the patient and thank you for allowing us participate in his care
--- NOTE | 2017-08-08 11:19 | P.CNPUL ---
History of Present Illness Consult date: 08/08/17 Requesting physician: Oscar Pierce Reason for consult: other (Congestive heart failure) Chief complaint: Shortness of breath History of present illness: This is a 66-year-old white male with history of chronic atrial fibrillation, COPD, chronic hypoxic respiratory failure, on home oxygen, hypertension, peripheral vessel occlusive disease, patient was admitted on 08/06/2017, and his symptoms are mostly symptoms of shortness of breath of 1 day duration. Patient was experiencing feelings of palpitations, and diaphoresis along with shortness of breath. No fever no chills, no hemoptysis, occasional cough, no sputum production, he had no chest pain, chest x-ray on admission showed evidence of COPD cardiomegaly, and faint opacity in the right upper lung, but I also felt that the patient had slight interstitial changes and interstitial edema. Patient was admitted for presumptive pneumonia, however last night the patient developed increased shortness of breath, and he was receiving IV fluid at 100 mL per hour. Chest x-ray clearly showed evidence of worsening interstitial edema. Patient was diuresed, transferred to the ICU because of his profound shortness of breath, and basically overnight the patient made a dramatic improvement in his atrial fibrillation seems to be better controlled, and his shortness of breath is significantly improved. Chest x-ray is already showing improvement compared to yesterday. Clearly the patient had worsening congestive heart failure and fluid overload, much better today, I saw him in the ICU, and I plan to transfer him back to a monitored bed on selective. Presently no fever no chills, no chest pain, no hemoptysis, no nausea no vomiting no abdominal pain no melena no hematemesis is no dysuria and no frequency no urgency. Review of Systems 14 point review of systems were obtained, please refer to pertinent positives in HPI, otherwise other systems are negative. Past Medical History Past Medical History: Atrial Fibrillation, Cancer, COPD, Hyperlipidemia, Hypertension, Vascular Disorder Additional Past Medical History / Comment(s): "growth in my lung", PVD, Neuropathy, wound lt great toe and left heel-healed, uses w/c,cane walk short distance with cane History of Any Multi-Drug Resistant Organisms: MRSA Date of last positivie culture/infection: 2012 MDRO Source:: rt ankle wound Past Surgical History: Orthopedic Surgery Additional Past Surgical History / Comment(s): aortic valve replacement, rt ankle surgery with screws and pins, cardioversion,eye surgery at age 15, bronchoscopy at [facility] in [place] Past Anesthesia/Blood Transfusion Reactions: No Reported Reaction Additional Past Anesthesia/Blood Transfusion Reaction / Comment(s): pt states "awakened prior to bronchoscopy being withdrawn." Past Psychological History: No Psychological Hx Reported Smoking Status: Former smoker Past Alcohol Use History: None Reported Past Drug Use History: None Reported - Past Family History Mother Family Medical History: Cancer Additional Family Medical History / Comment(s): lung cancer Father Family Medical History: No Reported History Medications and Allergies Home Medications Medication Instructions Recorded Confirmed Type Losartan Potassium [Cozaar] 100 mg PO QAM 03/26/16 08/06/17 History Tiotropium 18 Mcg/Puff [Spiriva] 1 cap INHALATION RT-DAILY PRN 03/26/16 History Albuterol Sulfate [Proair Hfa] 2 puff INHALATION RT-Q6H PRN 06/17/17 08/06/17 History Apixaban [Eliquis] 5 mg PO BID #60 tab 06/19/17 08/06/17 Rx Metoprolol Tartrate [Lopressor] 50 mg PO TID #90 tab 06/19/17 08/06/17 Rx Ipratropium-Albuterol Nebulize 3 ml INHALATION RT-QID #150 neb 07/03/17 Rx [Duoneb 0.5 mg-3 mg/3 ml Soln] Potassium Chloride [K-Tab ER] 10 meq PO DAILY 07/09/17 08/06/17 History Magnesium Oxide [Mag-Ox] 400 mg PO DAILY #30 tab 07/11/17 08/06/17 Rx Pravastatin Sodium [Pravachol] 80 mg PO HS #30 tab 07/11/17 08/06/17 Rx Furosemide [Lasix] 20 mg PO BID 08/06/17 08/06/17 History Gabapentin [Neurontin] 400 mg PO TID 08/06/17 08/06/17 History Multivitamins, Thera [Multivitamin 1 tab PO DAILY 08/06/17 08/06/17 History (formulary)] Nortriptyline HCl [Pamelor] 25 mg PO DAILY 08/06/17 08/06/17 History Pyridoxine [Vitamin B-6] 50 mg PO DAILY 08/06/17 08/06/17 History busPIRone HCL 5 mg PO BID 08/06/17 08/06/17 History oxyCODONE HCL 30 mg PO TID PRN 08/06/17 08/06/17 History Allergies Allergy/AdvReac Type Severity Reaction Status Date / Time atorvastatin [From Lipitor] Allergy Swelling Verified 08/06/17 12:33 lisinopril Allergy Cough Verified 08/06/17 12:33 sulfamethoxazole Allergy Swelling Verified 08/06/17 12:33 [From Bactrim] terazosin Allergy Unknown Verified 08/06/17 12:33 trimethoprim [From Bactrim] Allergy Swelling Verified 08/06/17 12:33 Physical Exam Vitals: Vital Signs Temp Pulse Pulse Resp BP BP Pulse Ox 08/08/17 10:00 85 26 H 137/66 96 08/08/17 09:00 102 H 24 149/74 98 08/08/17 08:00 98.5 F 125 H 37 H 150/65 97 08/08/17 07:35 113 H 08/08/17 07:21 111 H 98 08/08/17 07:00 113 H 22 137/67 99 08/08/17 06:00 139 H 26 H 137/67 97 08/08/17 05:00 98 20 139/72 97 08/08/17 04:00 116 H 18 137/72 96 08/08/17 03:20 109 H 26 H 133/64 100 08/08/17 03:00 114 H 19 133/64 99 08/08/17 02:30 97.6 F 123 H 12 133/76 100 08/08/17 01:50 122 H 08/08/17 01:40 125 H 08/08/17 00:00 97.6 F 82 18 99/57 97 08/07/17 20:45 100 08/07/17 20:34 98 08/07/17 20:00 97.8 F 95 18 102/70 95 08/07/17 16:54 101 H 08/07/17 16:44 101 H 08/07/17 15:25 98.3 F 97 18 102/65 96 08/07/17 11:30 97.7 F 82 18 105/73 99 08/07/17 11:06 100 Intake and Output 1108/08/17 08/08/17 22:59 06:59 14:59 Intake Total 240 340 Output Total 2225 275 Balance 240 -2225 65 Intake: Intake, IV Titration 100 Amount Magnesium Sulfate-D5w Pmx 100 1 gm In Dextrose/Water 1 100ml.bag @ 100 mls/hr IVPB Q1H [facility] Rx#: [id number] Sodium Chloride 0.9% 1, 0 000 ml @ 100 mls/hr IV . Q10H [facility] Rx#:[id number] Oral 240 240 Output: Urine 2225 275 Other: Voiding Method Urinal Indwelling Catheter Indwelling Catheter # Voids 1 1 1 # Bowel Movements 1 Patient is lying in the bed comfortably, no acute distress, awake alert and oriented.. HEENT: Normocephalic. Neck is supple. Pupils reactive. Nostrils clear. Oral cavity is moist. Ears reveal no drainage. Neck reveals no JVD, carotid bruits, or thyromegaly. CHEST EXAMINATION: Trachea is central. Symmetrical expansion. Minimal fine crackles at the bases CARDIAC: Normal S1, S2 with no gallops. 2/6 systolic murmur toward the precordium ABDOMEN: Soft. Bowel sounds normal. No organomegaly. No abdominal bruits. Extremities: reveal no edema. No clubbing or cyanosis. Patient does have gangrenous ulcers on the bilateral lower extremity toes Neurologically awake, alert, oriented x3 with well-coordinated movements. No focal deficits noted Skin: No rash or skin lesions. Psychiatric: Normal mood and affect, normal mental status examination. Musculoskeletal: No joint swelling or deformity. Normal range of motion. Results - Laboratory Findings CBC and BMP: 08/08/17 01:57 08/08/17 01:57 PT/INR, D-dimer PT 11.3 sec (9.0-12.0) 08/06/17 11:18 INR 1.1 (<1.2) 08/06/17 11:18 Abnormal lab findings: Abnormal Labs 08/06/17 08/06/17 08/06/17 11:18 11:18 11:18 WBC 13.4 H RBC 3.40 L Hgb 10.3 L Hct 31.4 L MCHC RDW 17.7 H Plt Count Neutrophils # 10.8 H Monocytes # Sodium 136 L Potassium BUN Creatinine Glucose 157 H POC Glucose (mg/dL) Plasma Lactic Acid Sancho Total Creatine Kinase 41 L Total Protein 6.2 L Albumin 3.2 L Urine Protein Urine Ketones Urine Blood Ur Leukocyte Esterase Urine RBC Urine WBC Urine Bacteria Urine Mucus 08/07/17 08/07/17 08/08/17 05:20 05:20 01:00 WBC 11.0 H RBC 3.04 L Hgb 9.1 L Hct 29.1 L MCHC RDW 17.6 H Plt Count Neutrophils # 8.2 H Monocytes # Sodium 135 L Potassium 3.3 L BUN 8 L Creatinine 0.60 L Glucose 102 H POC Glucose (mg/dL) Plasma Lactic Acid Sancho 2.4 H* Total Creatine Kinase Total Protein Albumin Urine Protein Urine Ketones Urine Blood Ur Leukocyte Esterase Urine RBC Urine WBC Urine Bacteria Urine Mucus 08/08/17 08/08/17 08/08/17 01:37 01:57 01:57 WBC 15.1 H RBC 3.43 L Hgb 10.3 L Hct 33.9 L MCHC 30.4 L RDW 17.9 H Plt Count 452 H Neutrophils # 9.8 H Monocytes # 1.3 H Sodium Potassium BUN Creatinine Glucose 150 H POC Glucose (mg/dL) 161 H Plasma Lactic Acid Sancho Total Creatine Kinase Total Protein 6.2 L Albumin 3.2 L Urine Protein Urine Ketones Urine Blood Ur Leukocyte Esterase Urine RBC Urine WBC Urine Bacteria Urine Mucus 08/08/17 08/08/17 07:18 07:55 WBC RBC Hgb Hct MCHC RDW Plt Count Neutrophils # Monocytes # Sodium Potassium BUN Creatinine Glucose POC Glucose (mg/dL) 235 H Plasma Lactic Acid Sancho Total Creatine Kinase Total Protein Albumin Urine Protein Trace H Urine Ketones 1+ H Urine Blood Moderate H Ur Leukocyte Esterase Large H Urine RBC 29 H Urine WBC 86 H Urine Bacteria Rare H Urine Mucus Rare H - Diagnostic Findings Chest x-ray: image reviewed (Improving congestive heart failure, no clear-cut evidence of pneumonia.) Assessment and Plan Assessment: Impression:1 Acute congestive heart failure, could be diastolic in nature, could be related to atrial fibrillation and valvular heart disease, patient had previous aortic valve replacement. Worsened by the fluids given upon admission. Patient responded basically overnight to diuresis. And he is feeling much better today during my evaluation in the ICU this morning. 2: No evidence of right upper lobe pneumonia, patient presented with congestive heart failure to begin with. 3 chronic atrial fibrillation remains on anticoagulation therapy. 4 chronic hypoxic respiratory failure secondary to COPD, seems to be relatively stable at this point. 5 history of peripheral vessel occlusive disease 6 history of hypertension 7 history of hyperlipidemia. Recommendation: Continue treatment of the atrial fibrillation, continue ceftriaxone for now, no need for azithromycin, continue diuretics, bronchodilators, patient could be transferred out of the ICU to a monitor bed on selective today. The maintenance dose of Lasix will be increased to 40 mg by mouth twice a day. Time with Patient: Greater than 30
[2017-08-08] MEDS: MULTIVITAMINS, THERA 1 EACH TAB PO SCH (12:34)
[2017-08-08 12:39] LABS: Glucose,Whole Blood 173 mg/dL (75-99)
[2017-08-08 16:39] LABS: Glucose,Whole Blood 190 mg/dL (75-99)
[2017-08-08 20:41] LABS: Glucose,Whole Blood 204 mg/dL (75-99)
[2017-08-08] MEDS: PRAVASTATIN SODIUM 80 MG TAB PO SCH (21:06)
[2017-08-09 05:47] LABS: Glucose,Whole Blood 150 mg/dL (75-99)
[2017-08-09 06:41] LABS: Anisocytosis Slight; Basophils % (A) 0 %; CH 30.4; CHCM 31.4; Eosinophils % (A) 0 %; HCT 30.3 % (39.0-53.0); HDW 3.98; HGB 9.3 gm/dL (13.0-17.5); Hypochromasia Marked; Luc # (Auto) 0.22; Luc % (Auto) 1; Lymphocytes # (A) 1.6 k/uL (1.0-4.8); Lymphocytes % (A) 7 %; MCH 29.8 pg (25.0-35.0); MCHC 30.6 g/dL (31.0-37.0); MCV 97.4 fL (80.0-100.0); Macrocytosis Slight; Mean Platelet Volume 6.9; Monocytes # (A) 1.1 k/uL (0-1.0); Monocytes % (A) 5 %; Neutrophils # (A) 18.8 k/uL (1.3-7.7); Neutrophils % (A) 87 %; Poikilocytosis Slight; RBC 3.11 m/uL (4.30-5.90); RDW 16.6 % (11.5-15.5); WBC 21.7 k/uL (3.8-10.6); WBC (Perox) 21.33
[2017-08-09 06:51] LABS: Magnesium 2.1 mg/dL (1.6-2.3); Phosphorus 3.5 mg/dL (2.5-4.5)
[2017-08-09] MEDS: INSULIN LISPRO (humaLOG) 300 UNIT/3 ML VIAL SQ SCH ×2 (07:31→12:56)
[2017-08-09] MEDS: PANTOPRAZOLE 40 MG TABLET PO SCH (07:31)
[2017-08-09] MEDS: IPRATROPIUM-ALBUTEROL 3 ML NEB INHALATION SCH ×4 (07:46→19:37)
[2017-08-09] MEDS: METOPROLOL TARTRATE 50 MG TAB PO SCH ×2 (08:28→20:02)
[2017-08-09] MEDS: POTASSIUM CHLORIDE ER 10 MEQ TAB.ER.PRT PO SCH (08:28)
[2017-08-09] MEDS: APIXABAN 5 MG TAB PO SCH ×2 (08:29→20:01)
[2017-08-09] MEDS: FUROSEMIDE 20 MG TAB PO SCH ×2 (08:29→14:50)
[2017-08-09] MEDS: busPIRone HCl 5 MG TAB PO SCH ×2 (08:29→20:02)
[2017-08-09] MEDS: GABAPENTIN 400 MG CAP PO SCH ×3 (08:29→20:02)
[2017-08-09] MEDS: LOSARTAN 50 MG TAB PO SCH (08:30)
[2017-08-09] MEDS: PYRIDOXINE 50 MG TAB PO SCH (08:30)
[2017-08-09] MEDS: MAGNESIUM OXIDE 400 MG TAB PO SCH (08:30)
[2017-08-09] MEDS: NORTRIPTYLINE 25 MG CAP PO SCH (08:30)
[2017-08-09] MEDS: cefTRIAXone IN SWFI 1,000 MG/10 ML SYRINGE IVP SCH (08:37)
--- NOTE | 2017-08-09 11:40 | P.PN ---
Subjective Progress Note Date: 08/09/17 Principal diagnosis: Dyspnea secondary to diastolic CHF exacerbation and atrial fibrillation with rapid ventricular response This is a 66-year-old white male with history of chronic atrial fibrillation, COPD, chronic hypoxic respiratory failure, on home oxygen, hypertension, peripheral vessel occlusive disease, patient was admitted on 08/06/2017, and his symptoms are mostly symptoms of shortness of breath of 1 day duration. Patient was experiencing feelings of palpitations, and diaphoresis along with shortness of breath. No fever no chills, no hemoptysis, occasional cough, no sputum production, he had no chest pain, chest x-ray on admission showed evidence of COPD cardiomegaly, and faint opacity in the right upper lung, but I also felt that the patient had slight interstitial changes and interstitial edema. Patient was admitted for presumptive pneumonia, however last night the patient developed increased shortness of breath, and he was receiving IV fluid at 100 mL per hour. Chest x-ray clearly showed evidence of worsening interstitial edema. Patient was diuresed, transferred to the ICU because of his profound shortness of breath, and basically overnight the patient made a dramatic improvement in his atrial fibrillation seems to be better controlled, and his shortness of breath is significantly improved. Chest x-ray is already showing improvement compared to yesterday. Clearly the patient had worsening congestive heart failure and fluid overload, much better today, I saw him in the ICU, and I plan to transfer him back to a monitored bed on selective. Presently no fever no chills, no chest pain, no hemoptysis, no nausea no vomiting no abdominal pain no melena no hematemesis is no dysuria and no frequency no urgency. The patient is seen again today 08/09/2017 in follow-up on the selective care unit. He is currently awake and alert in no acute distress. He is dyspneic with exertion otherwise doing better today as compared to yesterday. He is maintaining good O2 saturations in the 90s on 4 L/m per nasal cannula. His heart rate is better controlled currently in the 70s and 80s. He is afebrile. White count 21.7. Hemoglobin 9.3. Hemodynamically stable. Blood, sputum, urine cultures are all negative. Objective - Vital Signs Vital signs: Vital Signs Temp 96.4 F L 08/09/17 08:00 Pulse 72 11/08/17 11:31 Resp 18 08/09/17 08:00 BP 128/69 08/09/17 08:00 Pulse Ox 93 L 08/09/17 08:00 Intake & Output 08/08/17 08/09/17 08/09/17 18:59 06:59 18:59 Intake Total 676 120 Output Total 500 600 Balance 176 -480 Weight 93.5 kg Intake: Intake, IV Titration 200 Amount Magnesium Sulfate-D5w Pmx 200 1 gm In Dextrose/Water 1 100ml.bag @ 100 mls/hr IVPB Q1H [facility] Rx#: [id number] Sodium Chloride 0.9% 1, 0 000 ml @ 100 mls/hr IV . Q10H [facility] Rx#:[id number] Oral 476 120 Output: Urine 500 600 Other: Voiding Method Indwelling Catheter Toilet Urinal # Voids 1 # Bowel Movements 1 - Exam GENERAL EXAM: Obese. Alert, active, comfortable in no apparent distress. HEAD: Normocephalic. EYES: Normal reaction of pupils, equal size. NOSE: Clear with pink turbinates. THROAT: No erythema or exudates. NECK: No masses, no JVD. CHEST: No chest wall deformity. LUNGS: Equal air entry with crackles in the bilateral posterior bases.ir. CVS: S1 and S2 normal with no audible murmur, irregular rhythm. ABDOMEN: No hepatosplenomegaly, normal bowel sounds, no guarding or rigidity. SPINE: No scoliosis or deformity SKIN: No rashes CENTRAL NERVOUS SYSTEM: No focal deficits, tone is normal in all 4 extremities. EXTREMITIES: There is no peripheral edema. No clubbing, no cyanosis. Peripheral pulses are intact. - Labs CBC & Chem 7: 08/09/17 06:12 08/08/17 01:57 Labs: Abnormal Lab Results - Last 24 Hours (Table) 08/08/17 08/08/17 08/08/17 Range/Units 12:31 16:35 20:38 WBC (3.8-10.6) k/uL RBC (4.30-5.90) m/uL Hgb (13.0-17.5) gm/dL Hct (39.0-53.0) % MCHC (31.0-37.0) g/dL RDW (11.5-15.5) % Neutrophils # (1.3-7.7) k/uL Monocytes # (0-1.0) k/uL POC Glucose (mg/dL) 173 H 190 H 204 H (75-99) mg/dL 08/09/17 08/09/17 Range/Units 05:44 06:12 WBC 21.7 H (3.8-10.6) k/uL RBC 3.11 L (4.30-5.90) m/uL Hgb 9.3 L (13.0-17.5) gm/dL Hct 30.3 L (39.0-53.0) % MCHC 30.6 L (31.0-37.0) g/dL RDW 16.6 H (11.5-15.5) % Neutrophils # 18.8 H (1.3-7.7) k/uL Monocytes # 1.1 H (0-1.0) k/uL POC Glucose (mg/dL) 150 H (75-99) mg/dL Microbiology - Last 24 Hours (Table) 08/08/17 07:55 Urine Culture - Final Urine,Catheterized 08/06/17 13:26 Blood Culture - Preliminary Blood No Growth after 48 hours 08/06/17 20:00 Gram Stain - Final Sputum Sputum Culture - Final Assessment and Plan Assessment: Impression: 1 Acute exacerbation of diastolic congestive heart failure related to atrial fibrillation and valvular heart disease, patient had previous aortic valve replacement. Worsened by the fluids given upon admission. Patient responded basically overnight to diuresis. And he is feeling much better today. 2: No evidence of right upper lobe pneumonia, patient presented with congestive heart failure to begin with. 3 chronic atrial fibrillation remains on anticoagulation therapy. 4 chronic hypoxic respiratory failure secondary to COPD, seems to be relatively stable at this point. 5 history of peripheral vessel occlusive disease 6 history of hypertension 7 history of hyperlipidemia. Recommendation: The patient was seen and evaluated by Dr. Jefferson. The patient is improving daily. Continue with diuretics and his current medications. We'll repeat his chest x-ray in the a.m. Will increase his activity as tolerated. We'll continue to follow. I, the cosigning physician, have performed a history and physical examination on the patient. Lung sounds have faint crackles in the bilateral posterior bases. Diminished.. Maintaining good O2 saturations in the 90s on 4 L/m per nasal cannula. I have discussed the assessment and plan of care with my nurse practitioner, Abby Willis. I attest the above documented note as dictated by her.
[2017-08-09 12:21] LABS: Glucose,Whole Blood 109 mg/dL (75-99)
[2017-08-09] MEDS: MULTIVITAMINS, THERA 1 EACH TAB PO SCH (12:54)
--- NOTE | 2017-08-09 13:09 | P.PN ---
Subjective Progress Note Date: 08/09/17 Principal diagnosis: A. fib with RVR This is a 66-year-old gentleman who follows with Dr. Cole in the office. He has history of chronic persistent atrial fibrillation, COPD, peripheral arterial disease with evidence of critical limb ischemia of the left foot, hypertension, hyperlipidemia, he initially presented to the hospital with symptoms of progressively worsening shortness of breath. Patient was also experiencing fever and chills with productive sputum production. His initial chest x-ray did reveal a left lower lobe pneumonia and white blood cell count was elevated. He was seen in consultation yesterday by Dr. Steinberg, patient continues to be in atrial fibrillation, heart rate in the 70s to 90s this morning. Blood pressure 128/68, 93% on 4 L of oxygen. Objective - Vital Signs Vital signs: Vital Signs Temp 96.4 F L 08/09/17 08:00 Pulse 72 08/09/17 11:41 Resp 18 08/09/17 08:00 BP 128/69 08/09/17 08:00 Pulse Ox 93 L 08/09/17 08:00 Intake & Output 08/08/17 08/09/17 08/09/17 18:59 06:59 18:59 Intake Total 676 120 Output Total 500 600 Balance 176 -480 Weight 93.5 kg Intake: Intake, IV Titration 200 Amount Magnesium Sulfate-D5w Pmx 200 1 gm In Dextrose/Water 1 100ml.bag @ 100 mls/hr IVPB Q1H [facility] Rx#: [id number] Sodium Chloride 0.9% 1, 0 000 ml @ 100 mls/hr IV . Q10H [facility] Rx#:[id number] Oral 476 120 Output: Urine 500 600 Other: Voiding Method Indwelling Catheter Toilet Urinal # Voids 1 # Bowel Movements 1 - Exam PHYSICAL EXAMINATION: HEENT: [Head is atraumatic, normocephalic. Pupils equal, round. Neck is supple. There is no elevated jugular venous pressure.] HEART EXAMINATION: Heart S1 and S2 irregularly irregular CHEST EXAMINATION: Lungs reveal crackles to bilateral bases posteriorly. ABDOMEN: [ Soft, nontender. Bowel sounds are heard. No organomegaly noted]. EXTREMITIES:[1+ peripheral pulses with no evidence of peripheral edema and no calf tenderness noted]. NEUROLOGIC [patient is awake, alert and oriented -3.] . - Labs CBC & Chem 7: 08/09/17 06:12 08/08/17 01:57 Labs: Abnormal Lab Results - Last 24 Hours (Table) 08/08/17 08/08/17 08/09/17 Range/Units 16:35 20:38 05:44 WBC (3.8-10.6) k/uL RBC (4.30-5.90) m/uL Hgb (13.0-17.5) gm/dL Hct (39.0-53.0) % MCHC (31.0-37.0) g/dL RDW (11.5-15.5) % Neutrophils # (1.3-7.7) k/uL Monocytes # (0-1.0) k/uL POC Glucose (mg/dL) 190 H 204 H 150 H (75-99) mg/dL 08/09/17 08/09/17 Range/Units 06:12 12:06 WBC 21.7 H (3.8-10.6) k/uL RBC 3.11 L (4.30-5.90) m/uL Hgb 9.3 L (13.0-17.5) gm/dL Hct 30.3 L (39.0-53.0) % MCHC 30.6 L (31.0-37.0) g/dL RDW 16.6 H (11.5-15.5) % Neutrophils # 18.8 H (1.3-7.7) k/uL Monocytes # 1.1 H (0-1.0) k/uL POC Glucose (mg/dL) 109 H (75-99) mg/dL Microbiology - Last 24 Hours (Table) 08/08/17 07:55 Urine Culture - Final Urine,Catheterized 08/06/17 13:26 Blood Culture - Preliminary Blood No Growth after 48 hours 08/06/17 20:00 Gram Stain - Final Sputum Sputum Culture - Final Assessment and Plan Plan: Assessment and plan #1 acute aspiration of diastolic congestive heart failure acute on chronic #2 history of aortic valve replacement #3 chronic persistent atrial fibrillation #4 peripheral vascular disease #5 hypertension #6 hyperlipidemia #7 COPD exacerbation Plan Cardiology's perspective, we'll continue the patient on his current medications. Continue Eliquis 5 mg one tablet by mouth twice a day, metoprolol tartrate 100 mg by mouth twice a day. DNP note has been reviewed, I agree with a documented findings and plan of care. Patient was seen and examined.
[2017-08-09] MEDS: oxyCODONE ER 20 MG TAB.ER.12H PO SCH ×2 (14:40→20:02)
[2017-08-09 17:18] LABS: Glucose,Whole Blood 138 mg/dL (75-99)
[2017-08-09] MEDS ORDERED: INSULIN ASPART 100 UNIT/ML 1 ML 10 ML VIAL SQ SCH (17:30)
[2017-08-09] MEDS: PRAVASTATIN SODIUM 80 MG TAB PO SCH (20:02)
--- NOTE | 2017-08-09 23:39 | P.PN ---
Subjective Progress Note Date: 08/08/17 Principal diagnosis: Atrial fibrillation with rapid ventricular rate Agent is a 66-year-old male with a known history of atrial fibrillation on anticoagulation, COPD on home oxygen, hypertension, peripheral vascular disease with bilateral lower extremity toe wounds, hyperlipidemia and other medical problems came to the hospital with complaints of shortness of breath started this morning. Patient felt shortness of breath first and then followed by heart beating of fast and felt like atrial fibrillation. Patient came to the hospital. Patient became diaphoretic and shortness of breath. Patient otherwise denied any complaints of fever or chills. No cough or sputum production. No complaints of chest pain at patient denied any recent illnesses. Denied any recent travel or sick contacts at home.. Patient is following vascular surgery recently for his decreased blood supply in the leg and wounds. Patient was found have right upper lobe pneumonia and was started on antibiotics. Patient also on atrial fibrillation with rapid ventricular rate. 08/07/2017 Patient says that his breathing is improved today. Cardizem drip has been discontinued and started on metoprolol. Denied any chest pain. No fever no chills. Otherwise no acute overnight issues. 08/08/2017 Last night patient became more short of breath and tachycardic and tachypneic. Which is most likely secondary to IV fluids and interstitial edema. He was transferred to MICU and currently is much improved now. Patient does have leukocytosis with WBC 15. Continued antibiotics. Currently denied any complaints of shortness of breath. Patient is being transferred out of ICU. All other review of systems negative except above Current medications reviewed Objective - Vital Signs Vital signs: Vital Signs Temp 97 F L 08/08/17 15:30 Pulse 80 08/08/17 21:40 Resp 18 08/08/17 15:30 BP 131/60 08/08/17 15:30 Pulse Ox 99 08/08/17 15:30 Intake & Output 08/08/17 08/08/17 08/09/17 06:59 18:59 06:59 Intake Total 676 Output Total 2225 500 Balance -2225 176 Intake: Intake, IV Titration 200 Amount Magnesium Sulfate-D5w Pmx 200 1 gm In Dextrose/Water 1 100ml.bag @ 100 mls/hr IVPB Q1H [facility] Rx#: [id number] Sodium Chloride 0.9% 1, 0 000 ml @ 100 mls/hr IV . Q10H [facility] Rx#:[id number] Oral 476 Output: Urine 2225 500 Other: Voiding Method Indwelling Catheter Indwelling Catheter # Voids 1 1 # Bowel Movements 1 - Exam Patient is lying in the bed comfortably, no acute distress, awake alert and oriented.. HEENT: Normocephalic. Neck is supple. Pupils reactive. Nostrils clear. Oral cavity is moist. Ears reveal no drainage. Neck reveals no JVD, carotid bruits, or thyromegaly. CHEST EXAMINATION: Trachea is central. Symmetrical expansion. Bilateral diffuse rhonchi positive. Minimal crackles at the base CARDIAC: Normal S1, S2 with no gallops. No murmurs ABDOMEN: Soft. Bowel sounds normal. No organomegaly. No abdominal bruits. Extremities: reveal no edema. No clubbing or cyanosis. Patient does have gangrenous ulcers on the bilateral lower extremity toes Neurologically awake, alert, oriented x3 with well-coordinated movements. No focal deficits noted Skin: No rash or skin lesions. Psychiatric: Operative. Nonsuicidal Musculoskeletal: No joint swelling or deformity. Normal range of motion. - Labs CBC & Chem 7: 08/09/17 06:12 08/08/17 01:57 Labs: Abnormal Lab Results - Last 24 Hours (Table) 08/08/17 08/08/17 08/08/17 Range/Units 01:00 01:37 01:57 WBC 15.1 H (3.8-10.6) k/uL RBC 3.43 L (4.30-5.90) m/uL Hgb 10.3 L (13.0-17.5) gm/dL Hct 33.9 L (39.0-53.0) % MCHC 30.4 L (31.0-37.0) g/dL RDW 17.9 H (11.5-15.5) % Plt Count 452 H (150-450) k/uL Neutrophils # 9.8 H (1.3-7.7) k/uL Monocytes # 1.3 H (0-1.0) k/uL Glucose (74-99) mg/dL POC Glucose (mg/dL) 161 H (75-99) mg/dL Plasma Lactic Acid Sancho 2.4 H* (0.7-2.0) mmol/L Total Protein (6.3-8.2) g/dL Albumin (3.5-5.0) g/dL Urine Protein (Negative) Urine Ketones (Negative) Urine Blood (Negative) Ur Leukocyte Esterase (Negative) Urine RBC (0-5) /hpf Urine WBC (0-5) /hpf Urine Bacteria (None) /hpf Urine Mucus (None) /hpf 08/08/17 08/08/17 08/08/17 Range/Units 01:57 07:18 07:55 WBC (3.8-10.6) k/uL RBC (4.30-5.90) m/uL Hgb (13.0-17.5) gm/dL Hct (39.0-53.0) % MCHC (31.0-37.0) g/dL RDW (11.5-15.5) % Plt Count (150-450) k/uL Neutrophils # (1.3-7.7) k/uL Monocytes # (0-1.0) k/uL Glucose 150 H (74-99) mg/dL POC Glucose (mg/dL) 235 H (75-99) mg/dL Plasma Lactic Acid Sancho (0.7-2.0) mmol/L Total Protein 6.2 L (6.3-8.2) g/dL Albumin 3.2 L (3.5-5.0) g/dL Urine Protein Trace H (Negative) Urine Ketones 1+ H (Negative) Urine Blood Moderate H (Negative) Ur Leukocyte Esterase Large H (Negative) Urine RBC 29 H (0-5) /hpf Urine WBC 86 H (0-5) /hpf Urine Bacteria Rare H (None) /hpf Urine Mucus Rare H (None) /hpf 08/08/17 08/08/17 08/08/17 Range/Units 12:31 16:35 20:38 WBC (3.8-10.6) k/uL RBC (4.30-5.90) m/uL Hgb (13.0-17.5) gm/dL Hct (39.0-53.0) % MCHC (31.0-37.0) g/dL RDW (11.5-15.5) % Plt Count (150-450) k/uL Neutrophils # (1.3-7.7) k/uL Monocytes # (0-1.0) k/uL Glucose (74-99) mg/dL POC Glucose (mg/dL) 173 H 190 H 204 H (75-99) mg/dL Plasma Lactic Acid Sancho (0.7-2.0) mmol/L Total Protein (6.3-8.2) g/dL Albumin (3.5-5.0) g/dL Urine Protein (Negative) Urine Ketones (Negative) Urine Blood (Negative) Ur Leukocyte Esterase (Negative) Urine RBC (0-5) /hpf Urine WBC (0-5) /hpf Urine Bacteria (None) /hpf Urine Mucus (None) /hpf Microbiology - Last 24 Hours (Table) 08/06/17 13:26 Blood Culture - Preliminary Blood No Growth after 48 hours 08/08/17 07:55 Urine Culture - Preliminary Urine,Catheterized 08/06/17 20:00 Gram Stain - Final Sputum Sputum Culture - Final Assessment and Plan Assessment: #1 acute CHF possible diastolic likely due to fluid overload and interstitial edema. Improved now #1 right upper lobe pneumonia. Improving clinically #2 atrial fibrillation with a rapid regular rate #3 chronic atrial fibrillation on anticoagulation with eliquis #4 COPD on home oxygen #5 chronic respiratory failure and oxygen dependent #6 peripheral vascular disease with bilateral lower extremity wounds. Not infected #7 hypertension #8 hyperlipidemia Plan: Patient was given IV Lasix. Patient will be continued on antibiotics in the form of ceftriaxone and azithromycin. Patient was started on Cardizem drip which has been discontinued due to improved heart rate. Patient started on metoprolol, increase dose 200 mg twice a day. Patient was seen by cardiology We will continue the telemetry monitoring and serial troponins. Continue the home medications and oxygen therapy. Will follow closely and further recommendations based on the clinical course. Time with Patient: Greater than 30
--- NOTE | 2017-08-09 23:42 | P.PN ---
Subjective Progress Note Date: 08/09/17 Principal diagnosis: Atrial fibrillation with rapid ventricular rate Agent is a 66-year-old male with a known history of atrial fibrillation on anticoagulation, COPD on home oxygen, hypertension, peripheral vascular disease with bilateral lower extremity toe wounds, hyperlipidemia and other medical problems came to the hospital with complaints of shortness of breath started this morning. Patient felt shortness of breath first and then followed by heart beating of fast and felt like atrial fibrillation. Patient came to the hospital. Patient became diaphoretic and shortness of breath. Patient otherwise denied any complaints of fever or chills. No cough or sputum production. No complaints of chest pain at patient denied any recent illnesses. Denied any recent travel or sick contacts at home.. Patient is following vascular surgery recently for his decreased blood supply in the leg and wounds. Patient was found have right upper lobe pneumonia and was started on antibiotics. Patient also on atrial fibrillation with rapid ventricular rate. 08/07/2017 Patient says that his breathing is improved today. Cardizem drip has been discontinued and started on metoprolol. Denied any chest pain. No fever no chills. Otherwise no acute overnight issues. 08/08/2017 Last night patient became more short of breath and tachycardic and tachypneic. Which is most likely secondary to IV fluids and interstitial edema. He was transferred to MICU and currently is much improved now. Patient does have leukocytosis with WBC 15. Continued antibiotics. Currently denied any complaints of shortness of breath. Patient is being transferred out of ICU. 08/09/2017 Patient did improve clinically. No worsening short of breath or chest pain. Heart rate is better controlled. Continued antibiotics and no fever no chills. No acute overnight issues. Leukocytosis worsened today to 21. Lisinopril All other review of systems negative except above Current medications reviewed Objective - Vital Signs Vital signs: Vital Signs Temp 97.8 F 08/09/17 16:00 Pulse 97 08/09/17 19:49 Resp 18 08/09/17 16:00 BP 120/60 08/09/17 16:00 Pulse Ox 97 08/09/17 16:00 Intake & Output 08/09/17 08/09/17 08/10/17 06:59 18:59 06:59 Intake Total 120 210 Output Total 600 400 Balance -480 -190 Weight 93.5 kg Intake: Oral 120 210 Output: Urine 600 400 Other: Voiding Method Toilet Toilet Urinal # Voids 0 - Exam Patient is lying in the bed comfortably, no acute distress, awake alert and oriented.. HEENT: Normocephalic. Neck is supple. Pupils reactive. Nostrils clear. Oral cavity is moist. Ears reveal no drainage. Neck reveals no JVD, carotid bruits, or thyromegaly. CHEST EXAMINATION: Trachea is central. Symmetrical expansion. Bilateral diffuse rhonchi positive. Minimal crackles at the base CARDIAC: Normal S1, S2 with no gallops. No murmurs ABDOMEN: Soft. Bowel sounds normal. No organomegaly. No abdominal bruits. Extremities: reveal no edema. No clubbing or cyanosis. Patient does have gangrenous ulcers on the bilateral lower extremity toes Neurologically awake, alert, oriented x3 with well-coordinated movements. No focal deficits noted Skin: No rash or skin lesions. Psychiatric: Operative. Nonsuicidal Musculoskeletal: No joint swelling or deformity. Normal range of motion. - Labs CBC & Chem 7: 08/09/17 06:12 08/08/17 01:57 Labs: Abnormal Lab Results - Last 24 Hours (Table) 08/09/17 08/09/17 08/09/17 Range/Units 05:44 06:12 12:06 WBC 21.7 H (3.8-10.6) k/uL RBC 3.11 L (4.30-5.90) m/uL Hgb 9.3 L (13.0-17.5) gm/dL Hct 30.3 L (39.0-53.0) % MCHC 30.6 L (31.0-37.0) g/dL RDW 16.6 H (11.5-15.5) % Neutrophils # 18.8 H (1.3-7.7) k/uL Monocytes # 1.1 H (0-1.0) k/uL POC Glucose (mg/dL) 150 H 109 H (75-99) mg/dL 08/09/17 Range/Units 16:34 WBC (3.8-10.6) k/uL RBC (4.30-5.90) m/uL Hgb (13.0-17.5) gm/dL Hct (39.0-53.0) % MCHC (31.0-37.0) g/dL RDW (11.5-15.5) % Neutrophils # (1.3-7.7) k/uL Monocytes # (0-1.0) k/uL POC Glucose (mg/dL) 138 H (75-99) mg/dL Microbiology - Last 24 Hours (Table) 08/06/17 13:26 Blood Culture - Preliminary Blood No Growth after 72 hours 08/08/17 07:55 Urine Culture - Final Urine,Catheterized Assessment and Plan Assessment: #1 acute CHF possible diastolic likely due to fluid overload and interstitial edema. Improved now #1 right upper lobe pneumonia. Improving clinically #2 atrial fibrillation with a rapid regular rate #3 chronic atrial fibrillation on anticoagulation with eliquis #4 COPD on home oxygen #5 chronic respiratory failure and oxygen dependent #6 peripheral vascular disease with bilateral lower extremity wounds. Not infected #7 hypertension #8 hyperlipidemia Plan: Patient was given IV Lasix. Patient will be continued on antibiotics in the form of ceftriaxone and azithromycin. Patient was started on Cardizem drip which has been discontinued due to improved heart rate. Patient started on metoprolol, increase dose 200 mg twice a day. Patient was seen by cardiology We will continue the telemetry monitoring and serial troponins. Continue the home medications and oxygen therapy. Will follow closely and further recommendations based on the clinical course.
[2017-08-10 06:19] LABS: Anisocytosis Slight; Basophils # (A) 0.1 k/uL (0-0.2); Basophils % (A) 0 %; CH 30.3; CHCM 31.2; Eosinophils # (A) 0.2 k/uL (0-0.7); Eosinophils % (A) 1 %; HCT 30.5 % (39.0-53.0); HDW 4.02; HGB 9.1 gm/dL (13.0-17.5); Hypochromasia Marked; Luc # (Auto) 0.21; Luc % (Auto) 1; Lymphocytes % (A) 18 %; MCH 29.4 pg (25.0-35.0); MCV 97.9 fL (80.0-100.0); Macrocytosis Slight; Mean Platelet Volume 6.8; Monocytes % (A) 6 %; Neutrophils # (A) 11.8 k/uL (1.3-7.7); Neutrophils % (A) 73 %; Poikilocytosis Moderate; RBC 3.11 m/uL (4.30-5.90); RDW 16.7 % (11.5-15.5); WBC 16.2 k/uL (3.8-10.6); WBC (Perox) 16.04
[2017-08-10 06:28] LABS: Magnesium 1.9 mg/dL (1.6-2.3)
[2017-08-10] MEDS: PANTOPRAZOLE 40 MG TABLET PO SCH (06:42)
[2017-08-10] MEDS: IPRATROPIUM-ALBUTEROL 3 ML NEB INHALATION SCH ×2 (08:09→11:56)
[2017-08-10] MEDS: oxyCODONE ER 20 MG TAB.ER.12H PO SCH (08:28)
[2017-08-10] MEDS: APIXABAN 5 MG TAB PO SCH (08:29)
[2017-08-10] MEDS: busPIRone HCl 5 MG TAB PO SCH (08:29)
[2017-08-10] MEDS: GABAPENTIN 400 MG CAP PO SCH (08:30)
[2017-08-10] MEDS: NORTRIPTYLINE 25 MG CAP PO SCH (08:30)
[2017-08-10] MEDS: POTASSIUM CHLORIDE ER 10 MEQ TAB.ER.PRT PO SCH (08:30)
[2017-08-10] MEDS: PYRIDOXINE 50 MG TAB PO SCH (08:30)
[2017-08-10] MEDS: LOSARTAN 50 MG TAB PO SCH (08:30)
[2017-08-10] MEDS: METOPROLOL TARTRATE 50 MG TAB PO SCH (08:30)
[2017-08-10] MEDS: FUROSEMIDE 20 MG TAB PO SCH (08:30)
[2017-08-10] MEDS: MAGNESIUM OXIDE 400 MG TAB PO SCH (08:30)
[2017-08-10] MEDS: cefTRIAXone IN SWFI 1,000 MG/10 ML SYRINGE IVP SCH (08:31)
[2017-08-10 08:41] VITALS: RESP 16; TEMP 97.3
--- NOTE | 2017-08-10 09:44 | XR ---
EXAMINATION TYPE: XR chest 1V portable DATE OF EXAM: 08/10/2017 COMPARISON: Prior chest x-ray 08/08/2017 HISTORY: Congestive heart failure, lung cancer TECHNIQUE: Single frontal view of the chest is obtained. FINDINGS: No significant interval change in the pleural-parenchymal changes within the lungs. Patien t is post median sternotomy. The heart remains enlarged. Interstitium is mildly increased. There are overlying cardiac leads. Patient is rotated. No pneumothorax or pleural effusion. IMPRESSION: Similar findings to prior exam. Mild nodularity persists within the lungs, there is like ly some scarring. Some mild underlying interstitial lung disease suspected.
--- NOTE | 2017-08-10 11:31 | P.PN ---
Subjective Progress Note Date: 08/10/17 Principal diagnosis: Dyspnea secondary to diastolic CHF exacerbation and atrial fibrillation with rapid ventricular response This is a 66-year-old white male with history of chronic atrial fibrillation, COPD, chronic hypoxic respiratory failure, on home oxygen, hypertension, peripheral vessel occlusive disease, patient was admitted on 08/06/2017, and his symptoms are mostly symptoms of shortness of breath of 1 day duration. Patient was experiencing feelings of palpitations, and diaphoresis along with shortness of breath. No fever no chills, no hemoptysis, occasional cough, no sputum production, he had no chest pain, chest x-ray on admission showed evidence of COPD cardiomegaly, and faint opacity in the right upper lung, but I also felt that the patient had slight interstitial changes and interstitial edema. Patient was admitted for presumptive pneumonia, however last night the patient developed increased shortness of breath, and he was receiving IV fluid at 100 mL per hour. Chest x-ray clearly showed evidence of worsening interstitial edema. Patient was diuresed, transferred to the ICU because of his profound shortness of breath, and basically overnight the patient made a dramatic improvement in his atrial fibrillation seems to be better controlled, and his shortness of breath is significantly improved. Chest x-ray is already showing improvement compared to yesterday. Clearly the patient had worsening congestive heart failure and fluid overload, much better today, I saw him in the ICU, and I plan to transfer him back to a monitored bed on selective. Presently no fever no chills, no chest pain, no hemoptysis, no nausea no vomiting no abdominal pain no melena no hematemesis is no dysuria and no frequency no urgency. The patient is seen again today 08/09/2017 in follow-up on the selective care unit. He is currently awake and alert in no acute distress. He is dyspneic with exertion otherwise doing better today as compared to yesterday. He is maintaining good O2 saturations in the 90s on 4 L/m per nasal cannula. His heart rate is better controlled currently in the 70s and 80s. He is afebrile. White count 21.7. Hemoglobin 9.3. Hemodynamically stable. Blood, sputum, urine cultures are all negative. The patient is seen again today 08/10/2017 in follow-up on the selective care unit. He is resting comfortably in bed. He is awake and alert in no acute distress. He denies any worsening shortness of breath, cough or congestion. White count improved to 16.2. Hemoglobin 9.1. He is maintaining good O2 saturations in the upper 90s on 4 L/m per nasal cannula. Afebrile. Hemodynamically stable. Chest x-ray stable. Objective - Vital Signs Vital signs: Vital Signs Temp 97.3 F L 08/10/17 08:00 Pulse 88 08/10/17 08:22 Resp 16 08/10/17 08:00 BP 110/61 08/10/17 08:00 Pulse Ox 98 08/10/17 04:00 Intake & Output 08/09/17 08/10/17 08/10/17 18:59 06:59 18:59 Intake Total 210 490 220 Output Total 400 350 Balance -190 140 220 Weight 93.5 kg Intake: IV 10 10 10 Oral 210 480 220 Output: Urine 400 350 Other: Voiding Method Toilet Urinal # Voids 0 - Exam GENERAL EXAM: Obese. Alert, active, comfortable in no apparent distress. HEAD: Normocephalic. EYES: Normal reaction of pupils, equal size. NOSE: Clear with pink turbinates. THROAT: No erythema or exudates. NECK: No masses, no JVD. CHEST: No chest wall deformity. LUNGS: Equal air entry with crackles in the bilateral posterior bases.ir. CVS: S1 and S2 normal with no audible murmur, irregular rhythm. ABDOMEN: No hepatosplenomegaly, normal bowel sounds, no guarding or rigidity. SPINE: No scoliosis or deformity SKIN: No rashes CENTRAL NERVOUS SYSTEM: No focal deficits, tone is normal in all 4 extremities. EXTREMITIES: There is no peripheral edema. No clubbing, no cyanosis. Peripheral pulses are intact. - Labs CBC & Chem 7: 08/10/17 05:39 08/08/17 01:57 Labs: Abnormal Lab Results - Last 24 Hours (Table) 08/09/17 08/09/17 08/10/17 Range/Units 12:06 16:34 05:39 WBC 16.2 H (3.8-10.6) k/uL RBC 3.11 L (4.30-5.90) m/uL Hgb 9.1 L (13.0-17.5) gm/dL Hct 30.5 L (39.0-53.0) % MCHC 30.0 L (31.0-37.0) g/dL RDW 16.7 H (11.5-15.5) % Neutrophils # 11.8 H (1.3-7.7) k/uL POC Glucose (mg/dL) 109 H 138 H (75-99) mg/dL Microbiology - Last 24 Hours (Table) 08/06/17 13:26 Blood Culture - Preliminary Blood No Growth after 72 hours 08/08/17 07:55 Urine Culture - Final Urine,Catheterized Assessment and Plan Assessment: Impression: 1 Acute exacerbation of diastolic congestive heart failure related to atrial fibrillation and valvular heart disease, patient had previous aortic valve replacement. Worsened by the fluids given upon admission. Patient responded basically overnight to diuresis. And he is feeling much better today. 2: No evidence of right upper lobe pneumonia, patient presented with congestive heart failure to begin with. 3 chronic atrial fibrillation remains on anticoagulation therapy. 4 chronic hypoxic respiratory failure secondary to COPD, seems to be relatively stable at this point. 5 history of peripheral vessel occlusive disease 6 history of hypertension 7 history of hyperlipidemia. Recommendation: The patient was seen and evaluated by Dr. Jefferson. The patient is improving daily. His chest x-ray was reviewed. Continue with diuretics and his current medications. He is cleared for discharge from the pulmonary standpoint. I, the cosigning physician, have performed a history and physical examination on the patient. Lung sounds have faint crackles in the bilateral posterior bases. Diminished.. Maintaining good O2 saturations in the 90s on 4 L/m per nasal cannula. I have discussed the assessment and plan of care with my nurse practitioner, Abby Willis. I attest the above documented note as dictated by her.
[2017-08-10] MEDS: MULTIVITAMINS, THERA 1 EACH TAB PO SCH (11:42)
[2017-08-10 12:34] VITALS: BP 119/58; PULSE 88
--- NOTE | 2017-08-10 14:17 | P.PN ---
Subjective Progress Note Date: 08/10/17 Principal diagnosis: A. fib with RVR This is a 66-year-old gentleman who follows with Dr. Cole in the office. He has history of chronic persistent atrial fibrillation, COPD, peripheral arterial disease with evidence of critical limb ischemia of the left foot, hypertension, hyperlipidemia, he initially presented to the hospital with symptoms of progressively worsening shortness of breath. Patient was also experiencing fever and chills with productive sputum production. His initial chest x-ray did reveal a left lower lobe pneumonia and white blood cell count was elevated. He was seen in consultation yesterday by Dr. Pritchard, patient continues to be in atrial fibrillation, heart rate in the 70s to 90s this morning. Blood pressure 128/68, 93% on 4 L of oxygen. 08/10/2017 Patient seen and examined this morning, feeling well, no complaints. Heart rate in the 80s. Blood pressure 120/50, 97% on room air. White blood cell count 16.2, hemoglobin 9.1, magnesium 1.9. Objective - Vital Signs Vital signs: Vital Signs Temp 97.3 F L 08/10/17 12:00 Pulse 92 08/10/17 12:11 Resp 16 08/10/17 12:00 BP 119/58 08/10/17 12:00 Pulse Ox 97 08/10/17 12:00 Intake & Output 08/09/17 08/10/17 08/10/17 18:59 06:59 18:59 Intake Total 210 490 700 Output Total 400 350 Balance -190 140 700 Weight 93.5 kg Intake: IV 10 10 10 Oral 210 480 700 Output: Urine 400 350 Other: Voiding Method Toilet Urinal # Voids 0 - Exam PHYSICAL EXAMINATION: HEENT: [Head is atraumatic, normocephalic. Pupils equal, round. Neck is supple. There is no elevated jugular venous pressure.] HEART EXAMINATION: Heart S1 and S2 irregularly irregular CHEST EXAMINATION: Lungs reveal crackles to bilateral bases posteriorly. ABDOMEN: [ Soft, nontender. Bowel sounds are heard. No organomegaly noted]. EXTREMITIES:[1+ peripheral pulses with no evidence of peripheral edema and no calf tenderness noted]. NEUROLOGIC [patient is awake, alert and oriented -3.] . - Labs CBC & Chem 7: 08/10/17 05:39 08/08/17 01:57 Labs: Abnormal Lab Results - Last 24 Hours (Table) 08/09/17 08/10/17 Range/Units 16:34 05:39 WBC 16.2 H (3.8-10.6) k/uL RBC 3.11 L (4.30-5.90) m/uL Hgb 9.1 L (13.0-17.5) gm/dL Hct 30.5 L (39.0-53.0) % MCHC 30.0 L (31.0-37.0) g/dL RDW 16.7 H (11.5-15.5) % Neutrophils # 11.8 H (1.3-7.7) k/uL POC Glucose (mg/dL) 138 H (75-99) mg/dL Microbiology - Last 24 Hours (Table) 08/06/17 13:26 Blood Culture - Preliminary Blood No Growth after 72 hours 08/08/17 07:55 Urine Culture - Final Urine,Catheterized Assessment and Plan Plan: Assessment and plan #1 acute aspiration of diastolic congestive heart failure acute on chronic #2 history of aortic valve replacement #3 chronic persistent atrial fibrillation #4 peripheral vascular disease #5 hypertension #6 hyperlipidemia #7 COPD exacerbation Plan From Cardiology's perspective, we'll continue the patient on his current medications. Continue Eliquis 5 mg one tablet by mouth twice a day, metoprolol tartrate 100 mg by mouth twice a day. He may be able to be discharged home once cleared by the primary. We will make him a follow-up appointment in the office to see Dr. Aden post discharge. DNP note has been reviewed, I agree with a documented findings and plan of care. Patient was seen and examined.
--- NOTE | 2017-08-10 23:04 | P.DS ---
Providers Date of admission: 08/06/17 13:07 Expected date of discharge: 08/10/17 Attending physician: Oscar Pierce Consults: 08/06/17 13:05 Consult Physician Routine Consulting Provider: Genaro Aden Consult Reason/Comments: a fib Do you want consulting provider notified?: Yes 08/08/17 01:55 Consult Physician Stat Consulting Provider: Karis Jefferson Consult Reason/Comments: pneumonia, dyspnea Do you want consulting provider notified?: Yes [facility]: Discharge diagnosis #1 acute CHF possible diastolic likely due to fluid overload and interstitial edema. Improved now #1 suspected right upper lobe pneumonia. #2 atrial fibrillation with a rapid regular rate #3 chronic atrial fibrillation on anticoagulation with eliquis #4 COPD on home oxygen #5 chronic respiratory failure and oxygen dependent #6 peripheral vascular disease with bilateral lower extremity wounds. Not infected #7 hypertension #8 hyperlipidemia Hospital course Patient is a 66-year-old male with a known history of atrial fibrillation on anticoagulation, COPD on home oxygen, hypertension, peripheral vascular disease with bilateral lower extremity toe wounds, hyperlipidemia and other medical problems came to the hospital with complaints of shortness of breath started this morning. Patient felt shortness of breath first and then followed by heart beating of fast and felt like atrial fibrillation. Patient came to the hospital. Patient became diaphoretic and shortness of breath. Patient otherwise denied any complaints of fever or chills. No cough or sputum production. No complaints of chest pain at patient denied any recent illnesses. Denied any recent travel or sick contacts at home.. Patient is following vascular surgery recently for his decreased blood supply in the leg and wounds. Patient was found have right upper lobe pneumonia and was started on antibiotics. Patient also on atrial fibrillation with rapid ventricular rate. 08/07/2017 Patient says that his breathing is improved today. Cardizem drip has been discontinued and started on metoprolol. Denied any chest pain. No fever no chills. Otherwise no acute overnight issues. 08/08/2017 Last night patient became more short of breath and tachycardic and tachypneic. Which is most likely secondary to IV fluids and interstitial edema. He was transferred to MICU and currently is much improved now. Patient does have leukocytosis with WBC 15. Continued antibiotics. Currently denied any complaints of shortness of breath. Patient is being transferred out of ICU. 08/09/2017 Patient did improve clinically. No worsening short of breath or chest pain. Heart rate is better controlled. Continued antibiotics and no fever no chills. No acute overnight issues. Leukocytosis worsened today to 21. 08/10/2017 Patient's breathing status much improved. Heart rate in 80s. With increased metoprolol dose. Leukocytosis trending down. Repeat x-ray did not show any pneumonia. Patient does not need any antibiotics upon discharge. Otherwise patient is stable to be discharged home. Patient was given IV Lasix. Patient will be continued on antibiotics in the form of ceftriaxone and azithromycin. Patient was started on Cardizem drip which has been discontinued due to improved heart rate. Patient started on metoprolol, increase dose 100 mg twice a day. Patient was seen by cardiology and pulmonary Continue the home medications and oxygen therapy. Repeat x-ray showed no pneumonia. No need for antibiotics His shortness of breath is mainly from CHF. Patient did improve clinically and is stable to discharge home. Discharge physical examination PHYSICAL EXAMINATION: Patient is lying in the bed comfortably, no acute distress, awake alert and oriented.. HEENT: Normocephalic. Neck is supple. Pupils reactive. Nostrils clear. Oral cavity is moist. Ears reveal no drainage. Neck reveals no JVD, carotid bruits, or thyromegaly. CHEST EXAMINATION: Trachea is central. Symmetrical expansion. Bilateral air entry is slow with decreased sounds basally. No wheezing CARDIAC: Normal S1, S2 with no gallops. No murmurs ABDOMEN: Soft. Bowel sounds normal. No organomegaly. No abdominal bruits. Extremities: reveal no edema. No clubbing or cyanosis Neurologically awake, alert, oriented x3 with well-coordinated movements. No focal deficits noted Skin: No rash or skin lesions. Psychiatric: Cooperative. Nonsuicidal Musculoskeletal: No joint swelling or deformity. Normal range of motion. Patient Condition at Discharge: Serious Plan - Discharge Summary Discharge Rx Participant: Yes New Discharge Prescriptions: New Metoprolol Tartrate [Lopressor] 100 mg PO BID #60 tab Furosemide [Lasix] 40 mg PO BID@0900,1600 #60 tab Continue Tiotropium 18 Mcg/Puff [Spiriva] 1 cap INHALATION RT-DAILY PRN PRN Reason: sob Losartan Potassium [Cozaar] 100 mg PO QAM Albuterol Sulfate [Proair Hfa] 2 puff INHALATION RT-Q6H PRN PRN Reason: Shortness Of Breath Apixaban [Eliquis] 5 mg PO BID #60 tab Ipratropium-Albuterol Nebulize [Duoneb 0.5 mg-3 mg/3 ml Soln] 3 ml INHALATION RT-QID #150 neb Potassium Chloride [K-Tab ER] 10 meq PO DAILY Magnesium Oxide [Mag-Ox] 400 mg PO DAILY #30 tab Pravastatin Sodium [Pravachol] 80 mg PO HS #30 tab Nortriptyline HCl [Pamelor] 25 mg PO DAILY oxyCODONE HCL 30 mg PO TID PRN PRN Reason: Pain busPIRone HCL 5 mg PO BID Multivitamins, Thera [Multivitamin (formulary)] 1 tab PO DAILY Gabapentin [Neurontin] 400 mg PO TID Pyridoxine [Vitamin B-6] 50 mg PO DAILY Discontinued Metoprolol Tartrate [Lopressor] 50 mg PO TID #90 tab Furosemide [Lasix] 20 mg PO BID Discharge Medication List Losartan Potassium [Cozaar] 100 mg PO QAM 03/26/16 [History] Tiotropium 18 Mcg/Puff [Spiriva] 1 cap INHALATION RT-DAILY PRN 03/26/16 [History ] Albuterol Sulfate [Proair Hfa] 2 puff INHALATION RT-Q6H PRN 06/17/17 [History] Apixaban [Eliquis] 5 mg PO BID #60 tab 06/19/17 [Rx] Ipratropium-Albuterol Nebulize [Duoneb 0.5 mg-3 mg/3 ml Soln] 3 ml INHALATION RT -QID #150 neb 07/03/17 [Rx] Potassium Chloride [K-Tab ER] 10 meq PO DAILY 07/09/17 [History] Magnesium Oxide [Mag-Ox] 400 mg PO DAILY #30 tab 07/11/17 [Rx] Pravastatin Sodium [Pravachol] 80 mg PO HS #30 tab 07/11/17 [Rx] Gabapentin [Neurontin] 400 mg PO TID 08/06/17 [History] Multivitamins, Thera [Multivitamin (formulary)] 1 tab PO DAILY 08/06/17 [History ] Nortriptyline HCl [Pamelor] 25 mg PO DAILY 08/06/17 [History] Pyridoxine [Vitamin B-6] 50 mg PO DAILY 08/06/17 [History] busPIRone HCL 5 mg PO BID 08/06/17 [History] oxyCODONE HCL 30 mg PO TID PRN 08/06/17 [History] Furosemide [Lasix] 40 mg PO BID@0900,1600 #60 tab 08/10/17 [Rx] Metoprolol Tartrate [Lopressor] 100 mg PO BID #60 tab 08/10/17 [Rx] Follow up Appointment(s)/Referral(s): Marcus Gottlieb DO [Primary Care Provider] - 08/17/17 3:00 pm ( Goes to the [facility] [phone]) Genaro Aden MD [STAFF PHYSICIAN] - 08/15/17 10:15 am Patient Instructions/Handouts: Heart Failure (DC), A-fib (Atrial Fibrillation) (DC), Pulmonary Edema (DC), Safe Use of Anticoagulants (DC) Activity/Diet/Wound Care/Special Instructions: [facility] [phone] prefers morning appointments. Goes to the [facility] [phone] Discharge Disposition: HOME SELF-CARE
== END 2017-08-10 15:38 | disposition home or self-care (01) | DRG 291 ==
LOC: EC 10:41 → 6SEL 13:07 → 6ICU 08-08 02:12 → 6SEL 08-08 13:49
PROVIDERS: ADMIT Internal Medicine; ATTEND Internal Medicine
DX: I11.0 Hypertensive heart disease with heart failure (principal); J18.9 Pneumonia, unspecified organism; J96.11 Chronic respiratory failure with hypoxia; I73.9 Peripheral vascular disease, unspecified; Z99.81 Dependence on supplemental oxygen; I48.1 Persistent atrial fibrillation; J44.0 Chronic obstructive pulmonary disease with (acute) lower respiratory infection; J44.1 Chronic obstructive pulmonary disease with (acute) exacerbation; Z95.2 Presence of prosthetic heart valve; Z79.01 Long term (current) use of anticoagulants; I48.2 Chronic atrial fibrillation; E78.5 Hyperlipidemia, unspecified; I50.33 Acute on chronic diastolic (congestive) heart failure; Z79.899 Other long term (current) drug therapy; Z80.1 Family history of malignant neoplasm of trachea, bronchus and lung; Z85.118 Personal history of other malignant neoplasm of bronchus and lung; Z92.21 Personal history of antineoplastic chemotherapy; Z87.891 Personal history of nicotine dependence
CPT/HCPCS: 36415; 71010; 71020; 80048; 80053; 81001; 82550; 82553; 83036; 83605; 83735; 84100; 84132; 84439; 84443; 84481; 84484; 85025; 85610; 85730; 87040; 87070; 87086; 87205; 93005; 94640; 96365; 96366; 96368; 96375; 96376; 99291